=== PATIENT | male | born 1980 | race Caucasian/White ===

== ENCOUNTER 2020-07-14 17:17 | Emergency (ER) | payer OTHER, SELFPAY ==
--- NOTE | 2020-07-14 17:44 | ED_ITS ---
HPI - Psych General Chief Complaint: Psychiatric Symptoms Stated Complaint: si Time Seen by Provider: 07/14/20 17:43 Source: patient Mode of arrival: ambulatory Limitations: no limitations History of Present Illness HPI Narrative: patient has history of depression IV heroin use and schizophrenia came here for increased depression and suicidal ideation with plan to jump in front of the running bus. Says the drug use is also a problem which she been using for several years been admitted to the psych department 3 months ago for similar situation. Patient denied any event happened at home. Patient does have auditory hallucination and voices do tell him to do bad things to himself complaint: suicidal ideation and feels depressed Onset (ago): day(s) ( several) Duration: intermittent History of same: Yes Relieving factors: none Exacerbating factors: none Context: recent drug abuse Associated psychiatric symptoms: depression Treatments prior to arrival: none If self harm: admits thoughts of self harm and has plan Related Data Home Medications Medication Instructions Recorded Confirmed benztropine 1 mg PO DAILY 07/14/20 07/14/20 clonazepam 1 mg PO BID 07/14/20 07/14/20 prazosin 2 mg PO BEDTIME 07/14/20 07/14/20 risperidone 2 mg PO DAILY 07/14/20 07/14/20 sertraline 50 mg PO DAILY 07/14/20 07/14/20 Allergies Allergy/AdvReac Type Severity Reaction Status Date / Time No Known Allergies Allergy Verified 07/14/20 20:36 [No Known Allergies*] Review of Systems Review of Systems: Constitutional : No Fever, No Chills ENT/Mouth : No Ear Pain, No Nasal Congestion, No sore throat Eyes: No Eye Pain, No Swelling, No Redness Cardiovascular : No Chest Pain, No SOB Respiratory : No Cough, No Sputum, No Dyspnea Gastrointestinal : No Nausea, No Vomiting, No Diarrhea, No Hematochezia, No Melena Genitourinary : No Dysuria, No Urinary Frequency, No Hematuria Musculoskeletal : No Myalgias Skin : No Skin Lesions, No rash Neuro : No Weakness, No Numbness, No Paresthesias, No Dizziness, No Headache Psych : positive Depression, positive SI Heme/Lymph: No Lymphadenopathy Endocrine : No Polyuria, No Polydipsia PMFSH Past Medical History Medical History (Updated 07/15/20 @ 00:28 by Howard Alegre MD) Anemia Social History Social History Alcohol intake: current Alcohol intake frequency: a few times a week Smoking Status: Current every day smoker Use of substances other than those prescribed or required for medical reasons: Yes Substance Use Type: Heroin Substance Use Frequency: Chronic Longstanding Last Used Substance: Hours (ago) Any prior treatment program specific to substance use: Yes Advance Directives: No Advance Directives Information Provided: No Physical Exam Vital Signs: Vital Signs: Vital Signs Temp Pulse Resp BP Pulse Ox 07/14/20 22:57 98.9 F 70 16 139/89 97 07/14/20 22:49 70 139/89 07/14/20 22:21 98 F 64 20 136/89 98 07/14/20 17:50 97.6 F 68 20 108/74 97 Body Mass Index 27.4 Appearance: Alert. Oriented X3. No acute distress. Eyes: Pupils equal, round and reactive to light. ENT: Pharynx normal. Neck: Normal inspection. Neck supple. CVS: Normal heart rate and rhythm. Pulses normal. Respiratory: No respiratory distress. Breath sounds normal. Abdomen: Soft and nontender. Skin: Skin warm and dry. Normal skin color. Normal skin turgor. Extremities: No lower extremity edema. Good range of movement, IVDA Aldana ++ Neuro: Oriented X 3. No motor deficit. No sensory deficit. psych: patient feel depressed no hallucinations or delusions feels suicidal Course Course Course Narrative: patient has calm and stable at this time awaiting for crisis to evaluate the patient, pt signed out to Dr Velez [facility] - Psych Restraints Face to Face Assessment: Face to Face Assessment: Current Situation: After assessment of the patient, a review of the pertinent medical record and a discussion with nursing staff, I feel the patient requires a restrain interven tion. Reaction To: [] Medical Condition: [] Behavioral State: [] Continued Need: [] Lab Data Result diagrams: 07/14/20 17:55 07/14/20 17:55 Labs: Lab Results 07/14/20 07/14/20 07/14/20 Range/Units 17:55 17:55 17:55 WBC 7.0 (4.8-10.8) X10*3/uL RBC 4.74 (4.60-5.80) X10*6/uL Hgb 13.3 L (14.0-18.0) g/dl Hct 38.9 L (42-52) % MCV 82.1 (80-98) fL MCH 28.1 (27.0-33.0) pg MCHC 34.2 (31.0-36.0) g/dl RDW 12.8 (11.0-16.0) % Plt Count 238 (160-400) X10*3/uL MPV 8.7 L (9.4-12.4) fL Immature Gran % (Auto) 0.6 H (0.0-0.4) % Neut % (Auto) 49.3 (45-73) % Lymph % (Auto) 37.7 (20-40) % [place] % (Auto) 7.6 (2-11) % Eos % (Auto) 4.1 H (0-4) % Baso % (Auto) 0.7 (0-2) % Lymph # (Auto) 2.6 (1.2-4.9) X10*3/uL [place] # (Auto) 0.5 (0.1-1.2) X10*3/uL Eos # (Auto) 0.3 (0.0-0.4) X10*3/uL Baso # (Auto) 0.1 (0.0-0.2) X10*3/uL Abs Immat Gran (auto) 0.04 H (0.00-0.03) X10*3/uL Absolute Neuts (auto) 3.5 (2.0-8.3) X10*3/uL Absolute Nucleated RBC 0.000 (0.0-0.012) X10*3/uL Nucleated RBC % (auto) 0.0 (0.0-0.2) /100WBC Sodium 141 (135-145) mmol/L Potassium 4.2 (3.3-5.1) mmol/l Chloride 104 (96-108) mmol/L Carbon Dioxide 31 H (22-29) mmol/L Anion Gap 10 L (12-20) BUN 9 (9-16) mg/dL Creatinine 0.78 (0.5-1.4) mg/dL Estim Creat Clear Calc 124.3 Estimated GFR > 60 Random Glucose 88 (60-115) mg/dL Calcium 8.6 (8.4-10.2) mg/dL Total Bilirubin 0.8 (0.0-1.0) mg/dL AST 70 H (5-37) U/L ALT 116 H (0-40) U/L Alkaline Phosphatase 114 (39-117) U/L Total Protein 7.3 (6.5-8.0) g/dL Albumin 3.9 (3.5-5.0) g/dL Urine Opiates Screen (Not Detect) Ur Barbiturates Screen (Not Detect) Ur Phencyclidine Scrn (Not Detect) Ur Amphetamines Screen (Not Detect) U Benzodiazepines Scrn (Not Detect) Urine Cocaine Screen (Not Detect) U Marijuana (THC) Screen (Not Detect) Ethyl Alcohol < 10 mg/dL 07/14/20 Range/Units 21:24 WBC (4.8-10.8) X10*3/uL RBC (4.60-5.80) X10*6/uL Hgb (14.0-18.0) g/dl Hct (42-52) % MCV (80-98) fL MCH (27.0-33.0) pg MCHC (31.0-36.0) g/dl RDW (11.0-16.0) % Plt Count (160-400) X10*3/uL MPV (9.4-12.4) fL Immature Gran % (Auto) (0.0-0.4) % Neut % (Auto) (45-73) % Lymph % (Auto) (20-40) % [place] % (Auto) (2-11) % Eos % (Auto) (0-4) % Baso % (Auto) (0-2) % Lymph # (Auto) (1.2-4.9) X10*3/uL [place] # (Auto) (0.1-1.2) X10*3/uL Eos # (Auto) (0.0-0.4) X10*3/uL Baso # (Auto) (0.0-0.2) X10*3/uL Abs Immat Gran (auto) (0.00-0.03) X10*3/uL Absolute Neuts (auto) (2.0-8.3) X10*3/uL Absolute Nucleated RBC (0.0-0.012) X10*3/uL Nucleated RBC % (auto) (0.0-0.2) /100WBC Sodium (135-145) mmol/L Potassium (3.3-5.1) mmol/l Chloride (96-108) mmol/L Carbon Dioxide (22-29) mmol/L Anion Gap (12-20) BUN (9-16) mg/dL Creatinine (0.5-1.4) mg/dL Estim Creat Clear Calc Estimated GFR Random Glucose (60-115) mg/dL Calcium (8.4-10.2) mg/dL Total Bilirubin (0.0-1.0) mg/dL AST (5-37) U/L ALT (0-40) U/L Alkaline Phosphatase (39-117) U/L Total Protein (6.5-8.0) g/dL Albumin (3.5-5.0) g/dL Urine Opiates Screen POSITIVE H (Not Detect) Ur Barbiturates Screen Not Detected (Not Detect) Ur Phencyclidine Scrn Not Detected (Not Detect) Ur Amphetamines Screen Not Detected (Not Detect) U Benzodiazepines Scrn Not Detected (Not Detect) Urine Cocaine Screen POSITIVE H (Not Detect) U Marijuana (THC) Screen POSITIVE H (Not Detect) Ethyl Alcohol mg/dL Discharge Plan Discharge Clinical Impression: Suicidal ideation, Substance abuse Depression Qualifiers: Depression Type: major depressive disorder Major depression recurrence: recurrent Active/Remission status: currently active Major depression episode severity: moderate Qualified Code(s): F33.1 - Major depressive disorder, recurrent, moderate Prescriptions: No Action clonazepam 1 mg Tablet 1 mg PO BID RF: 0 risperidone 2 mg Tablet 2 mg PO DAILY RF: 0 benztropine 1 mg Tablet 1 mg PO DAILY RF: 0 sertraline 50 mg Tablet 50 mg PO DAILY RF: 0 prazosin 2 mg Capsule 2 mg PO BEDTIME RF: 0
[2020-07-14 17:50] VITALS: BP 108/74; PULSE 68; RESP 20; TEMP 36.4; O2SAT 97; BMI 27.4
[2020-07-14 18:03] LABS: MANUAL DIFF FLAG NO
[2020-07-14 18:20] LABS: Basophils Absolute Auto 0.1 X10*3/uL (0.0-0.2); Basophils Percent Auto 0.7 % (0-2); Eosinophils Absolute Auto 0.3 X10*3/uL (0.0-0.4); Eosinophils Percent Auto 4.1 % (0-4); Hematocrit 38.9 % (42-52); Hemoglobin 13.3 g/dl (14.0-18.0); Imm Gran Abs Auto 0.04 X10*3/uL (0.00-0.03); Imm Gran Pct Auto 0.6 % (0.0-0.4); Lymphocytes Absolute Auto 2.6 X10*3/uL (1.2-4.9); Lymphocytes Percent Auto 37.7 % (20-40); Mean Corpuscular HGB Conc 34.2 g/dl (31.0-36.0); Mean Corpuscular Hemoglobin 28.1 pg (27.0-33.0); Mean Corpuscular Volume 82.1 fL (80-98); Mean Platelet Volume 8.7 fL (9.4-12.4); Monocytes Absolute Auto 0.5 X10*3/uL (0.1-1.2); Monocytes Percent Auto 7.6 % (2-11); Neutrophils Absolute Auto 3.5 X10*3/uL (2.0-8.3); Neutrophils Percent Auto 49.3 % (45-73); Platelet Count 238 X10*3/uL (160-400); Red Blood Count 4.74 X10*6/uL (4.60-5.80); Red Cell Distribution Width 12.8 % (11.0-16.0)
[2020-07-14 18:27] LABS: Ethanol < 10 mg/dL
[2020-07-14 18:32] LABS: Alanine Aminotransferase 116 U/L (0-40); Albumin Level 3.9 g/dL (3.5-5.0); Alkaline Phosphatase 114 U/L (39-117); Anion Gap 10 (12-20); Aspartate Amino Transferase 70 U/L (5-37); Bilirubin Total 0.8 mg/dL (0.0-1.0); Blood Urea Nitrogen 9 mg/dL (9-16); Calcium 8.6 mg/dL (8.4-10.2); Carbon Dioxide 31 mmol/L (22-29); Chloride 104 mmol/L (96-108); Creatinine Clr Calc Pharmacy 124.3; Estimated Glomerular Filt Rate > 60; Glucose Random 88 mg/dL (60-115); Potassium 4.2 mmol/l (3.3-5.1); Sodium 141 mmol/L (135-145); Total Protein 7.3 g/dL (6.5-8.0)
[2020-07-14 22:12] LABS: Amphetamine Screen Urine Not Detected (Not Detect); Barbiturates, Urine Not Detected (Not Detect); Benzodiazepines Screen Urine Not Detected (Not Detect); Cannabinoid Screen Urine POSITIVE (Not Detect); Cocaine Screen Urine POSITIVE (Not Detect); Opiate Screen Urine POSITIVE (Not Detect); Phencyclidine Screen Urine Not Detected (Not Detect)
[2020-07-14 22:21] VITALS: BP 136/89; PULSE 64; RESP 20; TEMP 36.6; O2SAT 98
[2020-07-14] MEDS: clonazePAM 1 MG TABLET PO (22:47)
[2020-07-14 22:49] VITALS: BP 139/89; PULSE 70
[2020-07-14] MEDS: Prazosin HCL 1 MG CAPSULE 2 MG PO (22:49)
[2020-07-14 22:57] VITALS: BP 139/89; PULSE 70; RESP 16; TEMP 37.2; O2SAT 97
[2020-07-15 03:13] VITALS: BP 128/89; PULSE 72; RESP 17; TEMP 36.7; O2SAT 98
[2020-07-15] MEDS: Acetaminophen 325 MG TABLET 650 MG PO (04:00)
--- NOTE | 2020-07-15 04:07 | PC.NURSE ---
[facility] who came here to picket [employer] patient did not take the patient on technical ground after having communication with [facility] who booked the ride. Provider, Charge nurse made aware. Called [facility]/notified us that patient's ride will arranged in the morning. Patient back to bed, reported headache, Tylenol 650 mg administered as ordered. Will continue to monitor the patient.
--- NOTE | 2020-07-15 07:38 | PC.NURSE ---
medicated w methadone. message left w [facility] re discharge and dosing today. denies si,
== END 2020-07-15 07:50 ==
PROVIDERS: Emergency Provider Internal Medicine
DX: F33.1 Major depressive disorder, recurrent, moderate (principal); R45.851 Suicidal ideations; F20.9 Schizophrenia, unspecified; F11.10 Opioid abuse, uncomplicated; F17.200 Nicotine dependence, unspecified, uncomplicated; Z71.6 Tobacco abuse counseling; Z79.899 Other long term (current) drug therapy
CPT/HCPCS: 36415; 80053; 80307; 80320; 85025; 99285

== ENCOUNTER 2020-08-23 11:43 | Emergency (ER) | payer OTHER, SELFPAY ==
[2020-08-23 12:44] VITALS: BP 107/70; PULSE 63; RESP 18; TEMP 36.6; O2SAT 98; BMI 27.3
--- NOTE | 2020-08-23 14:10 | ED.PSYCH ---
HPI - Psych General Chief Complaint: Psychiatric Symptoms Stated Complaint: crisis Time Seen by Provider: 08/23/20 14:01 Source: patient Mode of arrival: ambulatory History of Present Illness HPI Narrative: 40-year-old male with a past medical history of anemia, schizophrenia, substance abuse, presenting to ED for increased depression with suicidal ideations with plan to cut himself. Admits he has been cutting his hands with a knife. Reports using heroin, cocaine, Fentanyl, and drinking 2 pints of alcohol daily, last used/drank last night. Denies fever, chills, cough, abdominal pain, CP/SOB. Denies HI complaint: suicidal ideation, feels depressed, substance abuse and alcohol abuse Related Data Home Medications Medication Instructions Recorded Confirmed benztropine 1 mg PO DAILY 07/14/20 07/14/20 clonazepam 1 mg PO BID 07/14/20 07/14/20 prazosin 2 mg PO BEDTIME 07/14/20 07/14/20 risperidone 2 mg PO DAILY 07/14/20 07/14/20 sertraline 50 mg PO DAILY 07/14/20 07/14/20 methadone 45 mg PO DAILY 07/15/20 07/15/20 Allergies Allergy/AdvReac Type Severity Reaction Status Date / Time No Known Allergies Allergy Verified 07/14/20 20:36 [No Known Allergies*] Review of Systems Review of Systems: Constitutional: No Weight loss, No Fever, No Chills Cardiovascular: No Chest Pain, No SOB Respiratory: No Cough, No Sputum, No Dyspnea Gastrointestinal: No Nausea, No Vomiting, No Diarrhea,No Abdominal pain Musculoskeletal: No joint pain, No Myalgias, No Joint Swelling Skin: No Skin Lesions, No rash Psych: + Depression, + SI, No HI/AH/VH Yes all other systems are reviewed and are negative [facility] Past Medical History Attestation statement: The following information was validated with the patient. Medical History (Updated 08/23/20 @ 20:18 by SHANON Santacruz) Anemia Social History Social History Alcohol intake: current Alcohol intake frequency: a few times a week Alcohol type: beer Smoking Status: Current every day smoker Smoked in Last 30 Days: Yes Use of substances other than those prescribed or required for medical reasons: Yes Substance Use Type: Opiates Advance Directives: No Advance Directives Information Provided: No Physical Exam Vital Signs: Vital Signs: Last Vital Signs Temp 98 F 08/23/20 12:44 Pulse 63 08/23/20 12:44 Resp 16 08/23/20 17:08 BP 107/70 08/23/20 12:44 Pulse Ox 97 08/23/20 17:08 Body Mass Index 27.3 Const: General: cooperative Orientation/consciousness: patient oriented x3 Limitations: no limitations HENMT: Head: Yes normal to inspection Ears: hearing grossly normal bilaterally General nose exam: Normal external nose present Face and sinus: Yes normal facial exam Eyes: General: appearance normal, both eyes and all related structures EOM: EOMs intact bilaterally Neck: Neck: Yes normal visual inspection Resp: Effort & Inspection: normal respiratory effort Auscultation: clear to auscultation bilaterally, no rales, no rhonchi and no wheezes Cardio: Rate: regular rate Heart sounds: S1 normal heart sound present and S2 normal heart sound present GI: Inspection: Yes normal to inspection Palpation (GI): Soft to palpation, nontender, no guarding and not rigid Skin: Other: Superficial cuts noted to bilateral, no active infection Neuro: General: patient oriented x3 Gait exam (Neuro): Normal gait present Extrem: General: Yes normal to inspection Psych: Thought content: Suicidality present and Depressive thoughts present Course Course Course Narrative: AST/ALT chronically elevated, labs otherwise unremarkable Tox screen positive for opiates, cocaine, and THC Patient is medically cleared for [facility] eval patient is now EATS bed search -2100--ED care transfer to [facility] bed search MDM - Psych MDM Narrative Medical decision making narrative: 40-year-old male with a past medical history of anemia, schizophrenia, substance abuse, presenting to ED for increased depression with suicidal ideations with plan to cut himself. On exam VS, NAD/well-appearing, superficial constant to bilateral hands. Patient has been admitted for similar circumstances in the past Plan: Labs, [facility], [facility] Lab Data Result diagrams: 08/23/20 15:16 08/23/20 15:16 Labs: Lab Results 08/23/20 08/23/20 08/23/20 Range/Units 15:16 15:16 15:16 WBC 7.9 (4.8-10.8) X10*3/uL RBC 4.75 (4.60-5.80) X10*6/uL Hgb 13.8 L (14.0-18.0) g/dl Hct 39.4 L (42-52) % MCV 82.9 (80-98) fL MCH 29.1 (27.0-33.0) pg MCHC 35.0 (31.0-36.0) g/dl RDW 13.6 (11.0-16.0) % Plt Count 246 (160-400) X10*3/uL MPV 8.8 L (9.4-12.4) fL Immature Gran % (Auto) 0.4 (0.0-0.4) % Neut % (Auto) 56.3 (45-73) % Lymph % (Auto) 33.5 (20-40) % [place] % (Auto) 7.3 (2-11) % Eos % (Auto) 2.0 (0-4) % Baso % (Auto) 0.5 (0-2) % Lymph # (Auto) 2.7 (1.2-4.9) X10*3/uL [place] # (Auto) 0.6 (0.1-1.2) X10*3/uL Eos # (Auto) 0.2 (0.0-0.4) X10*3/uL Baso # (Auto) 0.0 (0.0-0.2) X10*3/uL Abs Immat Gran (auto) 0.03 (0.00-0.03) X10*3/uL Absolute Neuts (auto) 4.5 (2.0-8.3) X10*3/uL Absolute Nucleated RBC 0.000 (0.0-0.012) X10*3/uL Nucleated RBC % (auto) 0.0 (0.0-0.2) /100WBC Sodium 138 (135-145) mmol/L Potassium 4.4 (3.3-5.1) mmol/l Chloride 103 (96-108) mmol/L Carbon Dioxide 26 (22-29) mmol/L Anion Gap 13 (12-20) BUN 13 (9-16) mg/dL Creatinine 0.80 (0.5-1.4) mg/dL Estim Creat Clear Calc 121.1 Estimated GFR > 60 Random Glucose 79 (60-115) mg/dL Calcium 8.5 (8.4-10.2) mg/dL Total Bilirubin 0.9 (0.0-1.0) mg/dL Direct Bilirubin 0.4 (0.0-0.5) mg/dL AST 40 H D (5-37) U/L ALT 59 H (0-40) U/L Alkaline Phosphatase 139 H D (39-117) U/L Total Protein 7.4 (6.5-8.0) g/dL Albumin 4.0 (3.5-5.0) g/dL Urine Opiates Screen (Not Detect) Ur Barbiturates Screen (Not Detect) Ur Phencyclidine Scrn (Not Detect) Ur Amphetamines Screen (Not Detect) U Benzodiazepines Scrn (Not Detect) Urine Cocaine Screen (Not Detect) U Marijuana (THC) Screen (Not Detect) Ethyl Alcohol < 10 mg/dL 08/23/20 Range/Units 15:16 WBC (4.8-10.8) X10*3/uL RBC (4.60-5.80) X10*6/uL Hgb (14.0-18.0) g/dl Hct (42-52) % MCV (80-98) fL MCH (27.0-33.0) pg MCHC (31.0-36.0) g/dl RDW (11.0-16.0) % Plt Count (160-400) X10*3/uL MPV (9.4-12.4) fL Immature Gran % (Auto) (0.0-0.4) % Neut % (Auto) (45-73) % Lymph % (Auto) (20-40) % [place] % (Auto) (2-11) % Eos % (Auto) (0-4) % Baso % (Auto) (0-2) % Lymph # (Auto) (1.2-4.9) X10*3/uL [place] # (Auto) (0.1-1.2) X10*3/uL Eos # (Auto) (0.0-0.4) X10*3/uL Baso # (Auto) (0.0-0.2) X10*3/uL Abs Immat Gran (auto) (0.00-0.03) X10*3/uL Absolute Neuts (auto) (2.0-8.3) X10*3/uL Absolute Nucleated RBC (0.0-0.012) X10*3/uL Nucleated RBC % (auto) (0.0-0.2) /100WBC Sodium (135-145) mmol/L Potassium (3.3-5.1) mmol/l Chloride (96-108) mmol/L Carbon Dioxide (22-29) mmol/L Anion Gap (12-20) BUN (9-16) mg/dL Creatinine (0.5-1.4) mg/dL Estim Creat Clear Calc Estimated GFR Random Glucose (60-115) mg/dL Calcium (8.4-10.2) mg/dL Total Bilirubin (0.0-1.0) mg/dL Direct Bilirubin (0.0-0.5) mg/dL AST (5-37) U/L ALT (0-40) U/L Alkaline Phosphatase (39-117) U/L Total Protein (6.5-8.0) g/dL Albumin (3.5-5.0) g/dL Urine Opiates Screen POSITIVE H (Not Detect) Ur Barbiturates Screen Not Detected (Not Detect) Ur Phencyclidine Scrn Not Detected (Not Detect) Ur Amphetamines Screen Not Detected (Not Detect) U Benzodiazepines Scrn Not Detected (Not Detect) Urine Cocaine Screen POSITIVE H (Not Detect) U Marijuana (THC) Screen POSITIVE H (Not Detect) Ethyl Alcohol mg/dL Discharge Plan Discharge Clinical Impression: Heroin abuse Depression Qualifiers: Depression Type: unspecified Qualified Code(s): F32.9 - Major depressive disorder, single episode, unspecified Prescriptions: No Action clonazepam 1 mg Tablet 1 mg PO BID RF: 0 risperidone 2 mg Tablet 2 mg PO DAILY RF: 0 benztropine 1 mg Tablet 1 mg PO DAILY RF: 0 sertraline 50 mg Tablet 50 mg PO DAILY RF: 0 prazosin 2 mg Capsule 2 mg PO BEDTIME RF: 0 methadone 5 mg Tablet 45 mg PO DAILY RF: 0
--- NOTE | 2020-08-23 15:06 | PC.NURSE ---
[facility] notified of crisis consult. Will fax ed summary after pt voids and urine tox. is resulted.
[2020-08-23 15:32] LABS: MANUAL DIFF FLAG NO
[2020-08-23 15:33] LABS: Basophils Percent Auto 0.5 % (0-2); Eosinophils Absolute Auto 0.2 X10*3/uL (0.0-0.4); Hematocrit 39.4 % (42-52); Hemoglobin 13.8 g/dl (14.0-18.0); Imm Gran Abs Auto 0.03 X10*3/uL (0.00-0.03); Imm Gran Pct Auto 0.4 % (0.0-0.4); Lymphocytes Absolute Auto 2.7 X10*3/uL (1.2-4.9); Lymphocytes Percent Auto 33.5 % (20-40); Mean Corpuscular Hemoglobin 29.1 pg (27.0-33.0); Mean Corpuscular Volume 82.9 fL (80-98); Mean Platelet Volume 8.8 fL (9.4-12.4); Monocytes Absolute Auto 0.6 X10*3/uL (0.1-1.2); Monocytes Percent Auto 7.3 % (2-11); Neutrophils Absolute Auto 4.5 X10*3/uL (2.0-8.3); Neutrophils Percent Auto 56.3 % (45-73); Platelet Count 246 X10*3/uL (160-400); Red Blood Count 4.75 X10*6/uL (4.60-5.80); Red Cell Distribution Width 13.6 % (11.0-16.0); White Blood Count 7.9 X10*3/uL (4.8-10.8)
[2020-08-23 15:58] LABS: Ethanol < 10 mg/dL
[2020-08-23 16:00] LABS: Amphetamine Screen Urine Not Detected (Not Detect); Barbiturates, Urine Not Detected (Not Detect); Benzodiazepines Screen Urine Not Detected (Not Detect); Cannabinoid Screen Urine POSITIVE (Not Detect); Cocaine Screen Urine POSITIVE (Not Detect); Opiate Screen Urine POSITIVE (Not Detect); Phencyclidine Screen Urine Not Detected (Not Detect)
[2020-08-23 16:04] LABS: Alanine Aminotransferase 59 U/L (0-40); Alkaline Phosphatase 139 U/L (39-117); Anion Gap 13 (12-20); Aspartate Amino Transferase 40 U/L (5-37); Bilirubin Direct 0.4 mg/dL (0.0-0.5); Bilirubin Total 0.9 mg/dL (0.0-1.0); Blood Urea Nitrogen 13 mg/dL (9-16); Calcium 8.5 mg/dL (8.4-10.2); Carbon Dioxide 26 mmol/L (22-29); Chloride 103 mmol/L (96-108); Creatinine Clr Calc Pharmacy 121.1; Estimated Glomerular Filt Rate > 60; Glucose Random 79 mg/dL (60-115); Potassium 4.4 mmol/l (3.3-5.1); Sodium 138 mmol/L (135-145); Total Protein 7.4 g/dL (6.5-8.0)
[2020-08-23 16:21] VITALS: RESP 20; O2SAT 97
--- NOTE | 2020-08-23 16:22 | PC.NURSE ---
ED summary faxed to [facility].
[2020-08-23 17:08] VITALS: RESP 16; O2SAT 97
[2020-08-23 22:00] VITALS: BP 110/71; PULSE 66; RESP 16; TEMP 37.2; O2SAT 97
--- NOTE | 2020-08-24 00:11 | PC.NURSE ---
FAXED TO [facility] FOR DOSE VERIFICATION FOR AM.
[2020-08-24 00:16] VITALS: BP 119/79; PULSE 52; RESP 16; TEMP 37.6; O2SAT 99
[2020-08-24 02:28] VITALS: PULSE 70
[2020-08-24] MEDS: cloNIDine HCL 0.1 MG TABLET PO (02:28)
[2020-08-24] MEDS: Ibuprofen 400 MG TABLET PO (02:29)
[2020-08-24] MEDS: Acetaminophen 325 MG TABLET 975 MG PO (02:29)
[2020-08-24] MEDS: risperiDONE 2 MG TABLET PO (09:42)
[2020-08-24] MEDS: Sertraline HCL 50 MG TABLET PO (09:42)
[2020-08-24] MEDS: clonazePAM 1 MG TABLET PO ×2 (09:42→23:38)
[2020-08-24] MEDS: Benztropine Mesylate 1 MG TABLET PO (09:42)
--- NOTE | 2020-08-24 11:33 | PC.NURSE ---
pharmacy called for methadone
[2020-08-24 11:41] VITALS: BP 107/73; PULSE 68; RESP 18; TEMP 37; O2SAT 96
--- NOTE | 2020-08-24 11:42 | PC.NURSE ---
patient a&ox3, pt awaiting methadone from pharmacy, vitals obtained/stable, pt awaiting placement. will continue to monitor.
--- NOTE | 2020-08-24 12:16 | PC.NURSE ---
pharmacy brought up medication for patient, pt medicated per order, will continue to monitor.
--- NOTE | 2020-08-24 13:31 | MHC.RECOVSUP ---
Recovery Support note: Patient is a 40 year old [place] speaking male who presented to [facility] ED due to SI. Patient was evaluated by N and he is currently awaiting an EATS bed. Patient reports he is hanging in there and doing ok while he awaits a bed. Offered patient information on recovery supports and patient declined, stating that he was familiar with them. Offered patient opportunity to meet with a recovery specialist and patient declined, stating that he is aware of [facility] and he has met with recovery coaches before while in the emergency room. This report writer available as needed if patient is interested in discussing his substance use further.
[2020-08-24 14:00] VITALS: RESP 17
[2020-08-24 16:00] VITALS: BP 108/72; PULSE 62; RESP 18; TEMP 36.7; O2SAT 99
[2020-08-24 18:00] VITALS: BP 105/62; PULSE 58; RESP 18; TEMP 36.5; O2SAT 100
--- NOTE | 2020-08-24 21:02 | PC.NURSE ---
pt resting in recliner in NAD and requesting food. pt given Maggie douglas and crackers to eat. Will continue to monitor pt. Pt denies any complaints at this time.
--- NOTE | 2020-08-24 23:43 | PC.NURSE ---
PT AWAKE AND RESTING IN RECLINER CHAIR. PT MEDICATED PER EMAR FOR ANXIETY. WILL CONTINUE TO MONITOR PT.
[2020-08-25 00:09] VITALS: BP 134/84; PULSE 91
[2020-08-25] MEDS: Prazosin HCL 1 MG CAPSULE 2 MG PO (00:09)
--- NOTE | 2020-08-25 02:00 | PC.NURSE ---
PT RESTING IN STRETCHER AND DENIES ANY COMPLAINTS AT THIS TIME. REQUESTING FOOD. PT GIVEN SANDWICH AND SODA.
--- NOTE | 2020-08-25 04:00 | PC.NURSE ---
PT AWAkE, DENIES ANY COMPLAINTS, PT REMAINS CALM AND COOPERATIVE. PT REQUESTING FOOD. WILL CONTINUE TO MONITOR PT.
--- NOTE | 2020-08-25 06:05 | PC.NURSE ---
PT AWAKE, RESPIRATIONS EASY, N/L. SKIN W/D, PT DENIES ANY COMPLAINTS. PT REQUESTING BREAKFAST. WILL CONTINUE TO MONITOR PT.
--- NOTE | 2020-08-25 07:00 | PC.NURSE ---
REPORT GIVEN TO ON-COMING SHIFT.
--- NOTE | 2020-08-25 07:35 | PC.NURSE ---
Report received. PT is sleeping in a recliner in 18H. Breathing is even and unlabored. EATS bed search in progress.
--- NOTE | 2020-08-25 09:10 | PC.NURSE ---
TONA called to speak with the PT for a MSU over the phone.
[2020-08-25] MEDS: clonazePAM 1 MG TABLET PO (09:53)
[2020-08-25] MEDS: Benztropine Mesylate 1 MG TABLET PO (09:53)
[2020-08-25] MEDS: Sertraline HCL 50 MG TABLET PO (09:53)
[2020-08-25] MEDS: risperiDONE 2 MG TABLET PO (09:53)
--- NOTE | 2020-08-25 10:07 | PC.NURSE ---
Spoke with DORAN about PT changing his mind in being an EATS bed search. PT stated that he doesn't think he needs to go anymore and he is going to stay with his aunt when he leaves the hospital. DORAN to consult with provider to determine PT disposition.
== END 2020-08-25 11:02 | disposition home or self-care (01) ==
PROVIDERS: Physician Assistant; Emergency Provider Internal Medicine; PCP Psychiatry & Neurology Psychiatry
DX: F32.9 Major depressive disorder, single episode, unspecified (principal); R45.851 Suicidal ideations; F11.10 Opioid abuse, uncomplicated; F14.10 Cocaine abuse, uncomplicated; Z79.899 Other long term (current) drug therapy
CPT/HCPCS: 36415; 80048; 80076; 80307; 80320; 85025; 99285

== ENCOUNTER 2020-09-14 08:35 | Emergency (ER) | payer OTHER, SELFPAY ==
[2020-09-14 08:47] VITALS: BP 121/85; PULSE 75; RESP 18; TEMP 36.7; O2SAT 96; BMI 28.0
[2020-09-14 08:52] VITALS: BP 121/85; PULSE 75; RESP 18; TEMP 36.7; O2SAT 96
--- NOTE | 2020-09-14 08:56 | ED.PSYCH ---
HPI - Psych General Chief Complaint: ETOH/Substance Use Stated Complaint: DETOX Time Seen by Provider: 09/14/20 08:55 Source: patient Mode of arrival: ambulatory Limitations: no limitations History of Present Illness HPI Narrative: 40 y/o male with history of alcohol abuse and opiate abuse presenting to the ER seeking detox. He reports he is also on methadone, last took it yesterday but did not go to the clinic today because he knows he needs help. He admits to using 3 bundles of IV heroin daily and drinking 1 pint and several beers per day. He denies SI and HI. He is starting to feel slightly anxious and is asking for his methadone. MD complaint: substance abuse and alcohol abuse Onset (ago): month(s) Duration: constant History of same: Yes Relieving factors: none Exacerbating factors: alcohol and drug use Context: recent alcohol abuse and recent drug abuse Associated psychiatric symptoms: none Associated symptoms: denies other symptoms Treatments prior to arrival: none Related Data Home Medications Medication Instructions Recorded Confirmed benztropine 1 mg PO DAILY 07/14/20 08/23/20 clonazepam 1 mg PO BID 07/14/20 08/23/20 prazosin 2 mg PO BEDTIME 07/14/20 08/23/20 risperidone 2 mg PO DAILY 07/14/20 08/23/20 sertraline 50 mg PO DAILY 07/14/20 08/23/20 methadone 45 mg PO DAILY 07/15/20 07/15/20 Allergies Allergy/AdvReac Type Severity Reaction Status Date / Time No Known Allergies Allergy Verified 07/14/20 20:36 [No Known Allergies*] Review of Systems Review of Systems: Constitutional: No Fever, No Chills Cardiovascular: No Chest Pain, No SOB, No Orthopnea, No Edema Respiratory: No Cough, No Sputum, No Wheezing, No dyspnea Gastrointestinal: No Nausea, No Vomiting, No Diarrhea, No abdominal Pain Genitourinary: No Dysuria, No Urinary Frequency, No Hematuria Musculoskeletal: No joint pain, No Myalgias Skin: No Skin Lesions, No rash Neuro: No Weakness, No Numbness, No Dizziness, No Headache Psych: No Anxiety/Panic, No Depression, No SI/ HI, No AH/VH PMFSH Past Medical History Medical History (Updated 09/14/20 @ 09:14 by SHANON Almendarez) Anemia Social History Social History Alcohol intake: current Alcohol intake frequency: 3 or more drinks per day Alcohol type: beer Smoking Status: Current every day smoker Smoked in Last 30 Days: Yes Use of substances other than those prescribed or required for medical reasons: Yes Substance Use Type: Heroin Substance Use Frequency: Daily Last Used Substance: Days (ago) Any prior treatment program specific to substance use: Yes Advance Directives: No Advance Directives Information Provided: No Physical Exam Vital Signs: Vital Signs: Last Vital Signs Temp 98.1 F 09/14/20 08:52 Pulse 75 09/14/20 08:52 Resp 18 09/14/20 08:52 BP 121/85 09/14/20 08:52 Pulse Ox 96 09/14/20 08:52 Body Mass Index 28.0 Appearance: Alert. Oriented X3. No acute distress. Eyes: Pupils equal, round and reactive to light. ENT: Pharynx normal. Neck: Normal inspection. Neck supple. CVS: Normal heart rate and rhythm. Pulses normal. Respiratory: No respiratory distress. Breath sounds normal. Abdomen: Soft and nontender. +BS x4 Skin: Skin warm and dry. Normal skin color. Normal skin turgor. No rashes. Extremities: No lower extremity edema. Neuro: Oriented X 3. Grossly normal. Course Course Course Narrative: 40 y/o male presenting for detox - heavy IVDA and ETOH. No objective signs of withdrawal at this time. He has been accepted to detox facility. He has been given his daily methadone dose 45 mg after confirming with his dispensary. MDM - Psych Restraints Face to Face Assessment: Face to Face Assessment: Current Situation: After assessment of the patient, a review of the pertinent medical record and a discussion with nursing staff, I feel the patient requires a restrain intervention. Reaction To: [] Medical Condition: [] Behavioral State: [] Continued Need: [] Lab Data Labs: Lab Results 09/14/20 Range/Units 09:10 Urine Opiates Screen POSITIVE H (Not Detect) Ur Barbiturates Screen Not Detected (Not Detect) Ur Phencyclidine Scrn Not Detected (Not Detect) Ur Amphetamines Screen Not Detected (Not Detect) U Benzodiazepines Scrn Not Detected (Not Detect) Urine Cocaine Screen POSITIVE H (Not Detect) U Marijuana (THC) Screen POSITIVE H (Not Detect) Critical Care Time Critical Care Time Critical Care Time: No Discharge Plan Discharge Clinical Impression: Alcohol abuse, Heroin abuse Patient Disposition: Xfer to Respite Facility Instructions: Alcohol Use Disorder (ED), Narcotic Use Disorder (ED) Additional Instructions: Present to detox facility directly upon discharge. Do not use IV drugs or drink alcohol. It is harmful to your health and can kill you. Prescriptions: No Action clonazepam 1 mg Tablet 1 mg PO BID RF: 0 risperidone 2 mg Tablet 2 mg PO DAILY RF: 0 benztropine 1 mg Tablet 1 mg PO DAILY RF: 0 sertraline 50 mg Tablet 50 mg PO DAILY RF: 0 prazosin 2 mg Capsule 2 mg PO BEDTIME RF: 0 methadone 5 mg Tablet 45 mg PO DAILY RF: 0
--- NOTE | 2020-09-14 09:21 | PC.NURSE ---
[facility] contacted for dose verification, message left.
[2020-09-14 10:11] LABS: Amphetamine Screen Urine Not Detected (Not Detect); Barbiturates, Urine Not Detected (Not Detect); Benzodiazepines Screen Urine Not Detected (Not Detect); Cannabinoid Screen Urine POSITIVE (Not Detect); Cocaine Screen Urine POSITIVE (Not Detect); Opiate Screen Urine POSITIVE (Not Detect); Phencyclidine Screen Urine Not Detected (Not Detect)
--- NOTE | 2020-09-14 10:28 | MHC.RECOVSUP ---
Recovery Support note: Patient is a 40 year old Mohawk speaking male who presented to [facility] ED seeking detox. Patient reports heroin and alcohol use. Patient was recently at [facility] and discharged on 09/08/20. Patient reports he is interested in going back to [place] or to [facility]. Patient reports [facility] is too close to home and he fears he will leave if he goes there. Patient reports he is currently on Methadone and that the Methadone has helped him significantly decrease his use. Patient information has been faxed to [facility] who reports that they do not have a male bed but that they will be in touch if one opens up. Patient information has also been faxed to [facility] and this bond writer awaits a return call from this facility.
[2020-09-14] MEDS: LORazepam 1 MG TABLET PO (10:29)
--- NOTE | 2020-09-14 12:02 | PC.NURSE ---
Methadone does confirmed, pt last dosed 09/12/20 with 45mg, and was given a take home bottle for 09/13/20. Provider notified, verification faxed to pharmacy
--- NOTE | 2020-09-14 13:21 | MHC.RECOVSUP ---
? Reason for consult:Continuity of care o Current location: 03 o Identified substance use concern: Heroin - Withdrawal - Seeking ATS (detox) - Support ? Intervention: o ATS bed search started/completed/in process o MAT started or to be started o Community resources provided o Harm reduction discussion ? Plan:Sending patient to detox ? Additional information:Had discussion with patient about use with methadone and those dangers,mat, and HFH. Sent patient to [facility] in a LYFT at 1:50pm
--- NOTE | 2020-09-14 13:30 | PC.NURSE ---
Pt accepted to [facility], to arrive via lyft.
== END 2020-09-14 13:37 ==
PROVIDERS: Physician Assistant; Emergency Provider Emergency Medicine; PCP Psychiatry & Neurology Psychiatry
DX: F10.10 Alcohol abuse, uncomplicated (principal); F11.20 Opioid dependence, uncomplicated; F14.10 Cocaine abuse, uncomplicated; F17.200 Nicotine dependence, unspecified, uncomplicated
CPT/HCPCS: 80307; 99285

== ENCOUNTER 2020-11-06 09:26 | Emergency (ER) | payer OTHER, SELFPAY ==
[2020-11-06 09:29] VITALS: BP 116/69; PULSE 101; RESP 18; TEMP 36.4; O2SAT 98; BMI 26.6
--- NOTE | 2020-11-06 10:20 | ECG_ITS ---
Test Reason : CHECK CARDAIC STATUS Blood Pressure : / mmHG Vent. Rate : 083 BPM Atrial Rate : 083 BPM P-R Int : 148 ms QRS Dur : 120 ms QT Int : 416 ms P-R-T Axes : 048 079 057 degrees QTc Int : 488 ms Normal sinus rhythm Possible Inferior infarct (cited on or before 18-OCT-2018) Cannot rule out Anterior infarct , age undetermined Abnormal ECG When compared with ECG of 18-OCT-2018 03:28, No significant change was found Referred By: Emily Ortega Electronically Signed By:ALEXANDER GO MD
[2020-11-06 10:42] LABS: MANUAL DIFF FLAG NO
[2020-11-06 10:51] LABS: Basophils Percent Auto 0.6 % (0-2); Eosinophils Absolute Auto 0.1 X10*3/uL (0.0-0.4); Eosinophils Percent Auto 1.7 % (0-4); Hematocrit 36.9 % (42-52); Hemoglobin 12.7 g/dl (14.0-18.0); Imm Gran Abs Auto 0.03 X10*3/uL (0.00-0.03); Imm Gran Pct Auto 0.4 % (0.0-0.4); Lymphocytes Absolute Auto 1.8 X10*3/uL (1.2-4.9); Lymphocytes Percent Auto 26.6 % (20-40); Mean Corpuscular HGB Conc 34.4 g/dl (31.0-36.0); Mean Corpuscular Hemoglobin 28.8 pg (27.0-33.0); Mean Corpuscular Volume 83.7 fL (80-98); Mean Platelet Volume 8.5 fL (9.4-12.4); Monocytes Absolute Auto 0.5 X10*3/uL (0.1-1.2); Monocytes Percent Auto 7.7 % (2-11); Neutrophils Absolute Auto 4.3 X10*3/uL (2.0-8.3); Platelet Count 230 X10*3/uL (160-400); Red Blood Count 4.41 X10*6/uL (4.60-5.80); Red Cell Distribution Width 12.6 % (11.0-16.0); White Blood Count 6.9 X10*3/uL (4.8-10.8)
[2020-11-06 11:14] LABS: Ethanol < 10 mg/dL
[2020-11-06 11:18] LABS: Alanine Aminotransferase 56 U/L (0-40); Albumin Level 3.8 g/dL (3.5-5.0); Alkaline Phosphatase 105 U/L (39-117); Anion Gap 11 (12-20); Aspartate Amino Transferase 42 U/L (5-37); Bilirubin Direct 0.3 mg/dL (0.0-0.5); Bilirubin Total 0.6 mg/dL (0.0-1.0); Blood Urea Nitrogen 8 mg/dL (9-16); Calcium 8.8 mg/dL (8.4-10.2); Carbon Dioxide 31 mmol/L (22-29); Chloride 102 mmol/L (96-108); Creatinine Clr Calc Pharmacy 120.4; Estimated Glomerular Filt Rate > 60; Glucose Random 135 mg/dL (60-115); Magnesium 1.9 mg/dL (1.6-2.6); Potassium 3.5 mmol/L (3.3-5.1); Sodium 140 mmol/L (135-145); Total Protein 6.9 g/dL (6.5-8.0)
[2020-11-06] MEDS: LORazepam 1 MG TABLET PO (11:18)
[2020-11-06 11:21] LABS: Lipase 17 U/L (8-78)
[2020-11-06 11:38] LABS: Influenza A PCR NEGATIVE (Negative); Influenza B PCR NEGATIVE (Negative); Resp Syncy Virus RNA Qual PCR NEGATIVE (Negative); SARS COV2 PCR INHOUSE NEGATIVE (Negative)
--- NOTE | 2020-11-06 11:47 | ED_ITS ---
HPI - Psych General Chief Complaint: Psychiatric Symptoms Stated Complaint: crisis- si Time Seen by Provider: 11/06/20 09:42 Source: patient Mode of arrival: ambulatory Limitations: no limitations History of Present Illness HPI Narrative: 40-year-old male with a past medical history of anemia, schizophrenia, substance abuse with heroin and cocaine through IV presenting to the ED with complaints of increased anxiety and depression making him having thoughts of hurting himself over the past few days worse today. Reports that he has been using 40 bags of heroin IV and 2 g of cocaine IV as well although is currently on methadone 25 mg daily. Reports that he missed his dose today. Requesting for us to give us his dose of methadone while he is here in the emergency department. Denies any auditory visual hallucination, self-injury or homicidal ideations. Denies any additional complaints or concerns at this time. MD complaint: suicidal ideation, feels depressed, anxiety and substance abuse Onset (ago): day(s) Duration: constant History of same: Yes Relieving factors: none Exacerbating factors: drug use Context: recent drug abuse Associated psychiatric symptoms: depression and suicidal ideation Associated symptoms: denies other symptoms Treatments prior to arrival: none Related Data Home Medications Medication Instructions Recorded Confirmed benztropine 1 mg PO DAILY 07/14/20 08/23/20 clonazepam 1 mg PO BID 07/14/20 08/23/20 prazosin 2 mg PO BEDTIME 07/14/20 08/23/20 risperidone 2 mg PO DAILY 07/14/20 08/23/20 sertraline 50 mg PO DAILY 07/14/20 08/23/20 methadone 45 mg PO DAILY 07/15/20 07/15/20 Allergies Allergy/AdvReac Type Severity Reaction Status Date / Time No Known Allergies Allergy Verified 07/14/20 20:36 [No Known Allergies*] Review of Systems Review of Systems: Constitutional : No Fever, No Chills ENT/Mouth : No Ear Pain, No Nasal Congestion, No sore throat Eyes: No Eye Pain, No Swelling, No Redness Cardiovascular : No Chest Pain, No SOB Respiratory : No Cough, No Sputum, No Dyspnea Gastrointestinal : No ingestions, No Nausea, No Vomiting, No Diarrhea, No Hematochezia, No Melena Genitourinary : No Dysuria, No Urinary Frequency, No Hematuria Musculoskeletal : No Myalgias Skin : No Skin Lesions, + rash to upper lip Neuro : No Weakness, No Numbness, No Paresthesias, No Dizziness, No Headache Psych : + Anxiety, + Depression, + SI, + No thoughts of self injury, No HI, No AVH, Heme/Lymph: No Lymphadenopathy Endocrine : No Polyuria, No Polydipsia Yes all other systems are reviewed and are negative [facility] Past Medical History Attestation statement: The following information was validated with the patient. Medical History Anemia Social History Social History Alcohol intake: current Alcohol intake frequency: 3 or more drinks per day Alcohol type: beer Smoking Status: Current every day smoker Substance Use Type: Heroin Advance Directives: Yes Advance Directives Information Provided: Yes Advance Directives on File: No Physical Exam Vital Signs: Vital Signs: Last Vital Signs Temp 97.6 F 11/06/20 09:29 Pulse 80 11/06/20 12:37 Resp 16 11/06/20 12:37 BP 111/59 L 11/06/20 12:37 Pulse Ox 95 11/06/20 12:37 Body Mass Index 26.6 vital signs have been reviewed as normal and appeared to be correct. Blood pressure normal. Heart rate tachycardic. Respiration rate normal. Temperature normal. Oxygen saturation normal. Appearance: Alert. Oriented X3. No acute distress. Head: Normal external exam. Normocephalic. Atraumatic. No Peralta signs noted. No raccoon eyes noted Eyes: PERRLA. EOMI. Conjunctiva and sclera normal. Eyelids normal. ENT: EAC normal. TM's Normal. Pharynx normal. Uvula midline. Moist mucous membranes. To upper lip patient is noted to have yellow crusting on a erythematous base with bilious lesions consistent with possible impetigo versus herpes simplex virus. No trismus noted. No drooling noted. No muffled voice noted. Neck: Normal inspection. Neck supple. FROM. No adenopathy. Thyroid Normal. No meningeal signs. No neck mass noted. CVS: Normal heart rate and rhythm. Heart sound normal. No murmurs noted. Pulses normal throughout. Respiratory: No respiratory distress. Painless inspiration. Breath sounds normal. No wheezes/rales/rhonchi noted. Chest nontender. No accessory muscle usage noted or decreased air movement noted. Abdomen: Soft and nontender. Bowel sounds normal in all 4 quadrants. No distention noted. No organomegaly noted. No visible injury noted. Back: No CVA tenderness. Full range of motion noted. Skin: Skin warm and dry. Normal skin color. Normal skin turgor. No additional rashes other than what is on the patient's upper lip/lesions/lacerations noted. Extremities: To bilateral forearms patient has track chowdary no signs of infection or foreign bodies/streaking or induration noted. No lower extremity edema. No calf tenderness noted. Extremities exhibit normal range of motion. Extremities nontender. Neuro: Oriented X 3. No motor deficit. No sensory deficit. Reflexes normal. Psych: Appearance grossly normal, well-kept, mental status normal, speech and movement normal, speech clear, affect normal. Is cooperative. Normal thought process. Normal thought content. Normal good insight. Judgment good. Course Course Course Narrative: 10:20am - 40-year-old male with a past medical history of anemia, schizophrenia, substance abuse with heroin and cocaine through IV currently on Methadone 25 mg daily presenting to the ED with complaints of increased anxiety, depression and vague SI thoughts. - Plan: Labs, EKG, Drug urine screen, COVID/RSV/flu swab, herpes swab of the upper lip, then provide 1 mg of Ativan, 25 mg of the patient's methadone which was verified by the nurse, and Mupirocin topical ointment to the upper lip then once medically cleared obtain a BHN versus care team evaluation then re- evaluate. Patient understands agrees the plan. Reevaluation(s) Reevaluation #1: - patient mild elevation AST/ALT similar when compared to prior. All other labs are within normal limits. ETOH level negative. Negative COVID/RSV/flu swab. - EKG normal sinus rhythm with old Q-waves no acute ischemic changes and similar when compared to prior EKGs in 2018/2019. - herpes culture still pending at this time. - drug urine screen pending at this time. - patient is now resting in the chair awaiting BHN versus care team evaluation will continue to monitor. Time: 12:07 Reevaluation #2: - patient was evaluated by the care team and there was no detox beds at this time although they gave him a bunch of reference since and he started to discuss that he did not feel safe if he was discharged therefore pending [facility] evaluation at this time. Time: 15:09 [facility] - Psych Medical Records Attestation: I reviewed the patient's medical records. Lab Data Attestation: I reviewed the patient's lab results. Result diagrams: 11/06/20 10:30 11/06/20 10:30 Labs: Lab Results 11/06/20 11/06/20 11/06/20 Range/Units 10:29 10:30 10:30 WBC 6.9 (4.8-10.8) X10*3/uL RBC 4.41 L (4.60-5.80) X10*6/uL Hgb 12.7 L (14.0-18.0) g/dl Hct 36.9 L (42-52) % MCV 83.7 (80-98) fL MCH 28.8 (27.0-33.0) pg MCHC 34.4 (31.0-36.0) g/dl RDW 12.6 (11.0-16.0) % Plt Count 230 (160-400) X10*3/uL MPV 8.5 L (9.4-12.4) fL Immature Gran % (Auto) 0.4 (0.0-0.4) % Neut % (Auto) 63.0 (45-73) % Lymph % (Auto) 26.6 (20-40) % [place] % (Auto) 7.7 (2-11) % Eos % (Auto) 1.7 (0-4) % Baso % (Auto) 0.6 (0-2) % Lymph # (Auto) 1.8 (1.2-4.9) X10*3/uL [place] # (Auto) 0.5 (0.1-1.2) X10*3/uL Eos # (Auto) 0.1 (0.0-0.4) X10*3/uL Baso # (Auto) 0.0 (0.0-0.2) X10*3/uL Abs Immat Gran (auto) 0.03 (0.00-0.03) X10*3/uL Absolute Neuts (auto) 4.3 (2.0-8.3) X10*3/uL Absolute Nucleated RBC 0.000 (0.0-0.012) X10*3/uL Nucleated RBC % (auto) 0.0 (0.0-0.2) /100WBC Sodium 140 (135-145) mmol/L Potassium 3.5 (3.3-5.1) mmol/L Chloride 102 (96-108) mmol/L Carbon Dioxide 31 H (22-29) mmol/L Anion Gap 11 L (12-20) BUN 8 L (9-16) mg/dL Creatinine 0.77 (0.5-1.4) mg/dL Estim Creat Clear Calc 120.4 Estimated GFR > 60 Random Glucose 135 H D (60-115) mg/dL Calcium 8.8 (8.4-10.2) mg/dL Magnesium 1.9 (1.6-2.6) mg/dL Total Bilirubin 0.6 (0.0-1.0) mg/dL Direct Bilirubin 0.3 (0.0-0.5) mg/dL AST 42 H (5-37) U/L ALT 56 H (0-40) U/L Alkaline Phosphatase 105 D (39-117) U/L Total Protein 6.9 (6.5-8.0) g/dL Albumin 3.8 (3.5-5.0) g/dL Lipase (8-78) U/L Ethyl Alcohol mg/dL Coronavirus (PCR) NEGATIVE (Negative) Influenza Type A (PCR) NEGATIVE (Negative) Influenza Type B (PCR) NEGATIVE (Negative) RSV RNA Qual (PCR) NEGATIVE (Negative) 11/06/20 11/06/20 Range/Units 10:30 10:30 WBC (4.8-10.8) X10*3/uL RBC (4.60-5.80) X10*6/uL Hgb (14.0-18.0) g/dl Hct (42-52) % MCV (80-98) fL MCH (27.0-33.0) pg MCHC (31.0-36.0) g/dl RDW (11.0-16.0) % Plt Count (160-400) X10*3/uL MPV (9.4-12.4) fL Immature Gran % (Auto) (0.0-0.4) % Neut % (Auto) (45-73) % Lymph % (Auto) (20-40) % [place] % (Auto) (2-11) % Eos % (Auto) (0-4) % Baso % (Auto) (0-2) % Lymph # (Auto) (1.2-4.9) X10*3/uL [place] # (Auto) (0.1-1.2) X10*3/uL Eos # (Auto) (0.0-0.4) X10*3/uL Baso # (Auto) (0.0-0.2) X10*3/uL Abs Immat Gran (auto) (0.00-0.03) X10*3/uL Absolute Neuts (auto) (2.0-8.3) X10*3/uL Absolute Nucleated RBC (0.0-0.012) X10*3/uL Nucleated RBC % (auto) (0.0-0.2) /100WBC Sodium (135-145) mmol/L Potassium (3.3-5.1) mmol/L Chloride (96-108) mmol/L Carbon Dioxide (22-29) mmol/L Anion Gap (12-20) BUN (9-16) mg/dL Creatinine (0.5-1.4) mg/dL Estim Creat Clear Calc Estimated GFR Random Glucose (60-115) mg/dL Calcium (8.4-10.2) mg/dL Magnesium (1.6-2.6) mg/dL Total Bilirubin (0.0-1.0) mg/dL Direct Bilirubin (0.0-0.5) mg/dL AST (5-37) U/L ALT (0-40) U/L Alkaline Phosphatase (39-117) U/L Total Protein (6.5-8.0) g/dL Albumin (3.5-5.0) g/dL Lipase 17 (8-78) U/L Ethyl Alcohol < 10 mg/dL Coronavirus (PCR) (Negative) Influenza Type A (PCR) (Negative) Influenza Type B (PCR) (Negative) RSV RNA Qual (PCR) (Negative) ECG Data Attestation: I personally reviewed and interpreted this ECG as follows: ECG interpretation date: 11/06/20 ECG interpretation time: 11:19 Interpretation: Normal sinus rhythm with a ventricular rate of 83 old Q-wave noted no acute ischemic changes noted today. Similar when compared to prior EKG October 2018. Discharge Plan Discharge Clinical Impression: Depression, Acute anxiety, Impetigo, Substance abuse/dependence, Suicidal ideation Prescriptions: No Action clonazepam 1 mg Tablet 1 mg PO BID RF: 0 risperidone 2 mg Tablet 2 mg PO DAILY RF: 0 benztropine 1 mg Tablet 1 mg PO DAILY RF: 0 sertraline 50 mg Tablet 50 mg PO DAILY RF: 0 prazosin 2 mg Capsule 2 mg PO BEDTIME RF: 0 methadone 5 mg Tablet 45 mg PO DAILY RF: 0
[2020-11-06] MEDS: Mupirocin 2 % Oint 22 GM TUBE 1 APPL TOPICAL (12:19)
[2020-11-06 12:37] VITALS: BP 111/59; PULSE 80; RESP 16; O2SAT 95
--- NOTE | 2020-11-06 14:12 | PC.NURSE ---
pt information faxed to [facility], they stated they cannot confirm when they will be able to see the patient
--- NOTE | 2020-11-06 14:20 | MHC.CARE ---
CARE team met with pt due to SI concerns. Pt was drowsy and had difficult time engaging fully, but reported that he struggles with SI off and on throughout his life and reported that he has taken pills in the past and have tried different ways to hurt myself. Pt denied current SI but reports that he has thoughts intermittently off and on throughout his life around ending it. Pt denied plan or current means to commit suicide. Pt stated that his substance use and depression is a vicious cycle. Reported that he has a therapist and supports and reports that he wants to get clean and better. Pt would like to get help for his sobriety and would like to enter into a detox or treatment facility to receive additional help. Pt was referred to recovery nurse Kerri for detox placement.
--- NOTE | 2020-11-06 15:18 | MHC.RECOVRN ---
T/w met with pt to discuss recovery and desire for ATS placement. Unfortunately there are not any ATS bed available from here to [place]. Pt is on waitlist for [facility] and will be contacted when a bed becomes available. Pt encouraged to continue calling all facilities.
--- NOTE | 2020-11-06 15:24 | MHC.CARE ---
CARE team talked with recovery nurse Kerri and Kerri gave resources to pt. Pt was put [facility]list for [facility]. No beds available, Pt stated that he would not be safe leaving due to not having somewhere to go for detox. Ct did not feel safe leaving at this time and has been referred for [facility] crisis eval. CARE team will follow up with eta of clinician.
--- NOTE | 2020-11-06 15:24 | PC.NURSE ---
Awaiting BHN eval. Pt remains calm and cooperative.
[2020-11-06 17:59] VITALS: BP 113/70; PULSE 67; RESP 16; TEMP 36.1; O2SAT 98
--- NOTE | 2020-11-06 18:00 | PC.NURSE ---
Still awaiting N eval. Pt remains calm and cooperative at this time.
--- NOTE | 2020-11-06 20:00 | PC.NURSE ---
Pt resting in chair in hallway, breathing equal and unlabored. No distress, sitter in place. Awaiting BHN
[2020-11-07 00:12] VITALS: BP 124/80; PULSE 62; RESP 16; TEMP 36.6; O2SAT 97
[2020-11-07 04:00] VITALS: RESP 18
[2020-11-07 06:00] VITALS: RESP 16
--- NOTE | 2020-11-07 07:01 | PC.NURSE ---
report taken from Lita CARR. pt resting in chair in [place]. eating breakfast. waiting for N.
--- NOTE | 2020-11-07 07:58 | MHC.CARE ---
CARE Team spoke with patient, he denies any harm to self or others. He stated he has been depressed due to his substance use. He is seeking detox services and a list was provided yo him, and also he will be walking to the [facility] to get services needed. He is clear from the CARE Team.
== END 2020-11-07 09:46 | disposition home or self-care (01) ==
PROVIDERS: Physician Assistant Medical; Emergency Provider Emergency Medicine Emergency Medical Services; PCP Psychiatry & Neurology Psychiatry
DX: F32.9 Major depressive disorder, single episode, unspecified (principal); F41.9 Anxiety disorder, unspecified; L01.00 Impetigo, unspecified; F11.20 Opioid dependence, uncomplicated; F14.10 Cocaine abuse, uncomplicated; R45.851 Suicidal ideations; D64.9 Anemia, unspecified; F20.9 Schizophrenia, unspecified; Z20.822 Contact with and (suspected) exposure to COVID-19; Z91.5 Personal history of self-harm
CPT/HCPCS: 0241U; 36415; 80048; 80076; 80320; 83690; 83735; 85025; 87255; 93005; 99284

== ENCOUNTER 2021-05-03 09:07 | Emergency (ER) | payer OTHER, SELFPAY ==
[2021-05-03 09:32] VITALS: BP 104/64; PULSE 69; RESP 18; TEMP 36.8; O2SAT 97; BMI 28.2
--- NOTE | 2021-05-03 09:48 | ED_ITS ---
HPI - Psych General Chief Complaint: Psychiatric Symptoms Stated Complaint: multiple complaints Time Seen by Provider: 05/03/21 09:46 Source: patient Mode of arrival: ambulatory Limitations: no limitations History of Present Illness MD complaint: suicidal ideation, feels depressed and substance abuse Onset (ago): week(s) (1) Duration: constant and getting worse History of same: Yes Relieving factors: none Exacerbating factors: drug use Context: recent drug abuse Associated psychiatric symptoms: depression and suicidal ideation Associated symptoms: denies other symptoms Treatments prior to arrival: none If self harm: admits thoughts of self harm Related Data Home Medications Medication Instructions Recorded Confirmed benztropine 1 mg tablet 1 mg PO DAILY 07/14/20 08/23/20 clonazepam 1 mg tablet 1 mg PO BID 07/14/20 08/23/20 prazosin 2 mg capsule 2 mg PO BEDTIME 07/14/20 08/23/20 risperidone 2 mg tablet 2 mg PO DAILY 07/14/20 08/23/20 sertraline 50 mg tablet 50 mg PO DAILY 07/14/20 08/23/20 methadone 5 mg tablet 45 mg PO DAILY 07/15/20 07/15/20 Allergies Allergy/AdvReac Type Severity Reaction Status Date / Time No Known Allergies Allergy Verified 07/14/20 20:36 [No Known Allergies*] Review of Systems Review of Systems: Constitutional : No Fever, No Chills ENT/Mouth : No Ear Pain, No Nasal Congestion, No sore throat Eyes: No Eye Pain, No Swelling, No Redness Cardiovascular : No Chest Pain, No SOB Respiratory : No Cough, No Sputum, No Dyspnea Gastrointestinal : No Nausea, No Vomiting, No Diarrhea, No Hematochezia, No Melena Genitourinary : No Dysuria, No Urinary Frequency, No Hematuria Musculoskeletal : No Myalgias Skin : No Skin Lesions, No rash Neuro : No Weakness, No Numbness, No Paresthesias, No Dizziness, No Headache Psych : positive Anxiety, positive Depression, positive SI no HI Heme/Lymph: No Lymphadenopathy Endocrine : No Polyuria, No Polydipsia All other systems reviewed and are negative [facility] Past Medical History Attestation statement: The following information was validated with the patient. Medical History Anemia Substance abuse Social History Social History Alcohol intake: current Alcohol intake frequency: 3 or more drinks per day Alcohol type: beer Substance Use Type: Heroin Advance Directives: No Advance Directives Information Provided: No Physical Exam Vital Signs: Vital Signs: Last Vital Signs Temp 98.3 F 05/03/21 09:32 Pulse 69 05/03/21 09:32 Resp 18 05/03/21 09:32 BP 104/64 05/03/21 09:32 Pulse Ox 97 05/03/21 09:32 Body Mass Index 28.2 Appearance: Alert. Oriented X3. No acute distress. Eyes: Pupils equal, round and reactive to light. ENT: Pharynx normal. Neck: Normal inspection. Neck supple. CVS: Normal heart rate and rhythm. Pulses normal. Respiratory: No respiratory distress. Breath sounds normal. Abdomen: Soft and nontender. Skin: Skin warm and dry. Normal skin color. track chowdary noted on arms but no signs of infection Extremities: No lower extremity edema. No calf ttp Neuro: Oriented X 3. No motor deficit. No sensory deficit. CN 2-12 intact Psych: pos SI, no HI, calm and cooperative Course Course Course Narrative: LFTS at baseline, medically cleared Physician observation started at 1151am. Patient placed in physician observation because the patient needed more time for [facility] assessment. At the time observation was started the patient's vitals were stable, patient is alert and oriented, Neuro: nonfocal, CV RRR, Lungs clear [facility] has seen the patient - does not meet criteria for inpatient psychiatry patient has more substance abuse issues and needs to go to detox Physician observation ended at 340pm Patient seen and cleared by crisis. Plan is to follow up with detox resources from [facility] NAD, lungs clear, CV RRR, Abd nontender, Neuro intact. Disposition is for home. MDM - Psych MDM Narrative Medical decision making narrative: 40 yo male with hx of mental health issues and substance abuse at this time c/o SI and depression, will obtain basic labs, COVID swab refer to [facility]. Lab Data Result diagrams: 05/03/21 11:10 05/03/21 11:10 Labs: Lab Results 05/03/21 05/03/21 05/03/21 Range/Units 11:10 11:10 11:10 WBC 5.7 (4.8-10.8) X10*3/uL RBC 4.86 (4.60-5.80) X10*6/uL Hgb 14.1 (14.0-18.0) g/dl Hct 41.2 L (42-52) % MCV 84.8 (80-98) fL MCH 29.0 (27.0-33.0) pg MCHC 34.2 (31.0-36.0) g/dl RDW 12.7 (11.0-16.0) % Plt Count 224 (160-400) X10*3/uL MPV 9.1 L (9.4-12.4) fL Immature Gran % (Auto) 0.2 (0.0-0.4) % Neut % (Auto) 54.1 (45-73) % Lymph % (Auto) 36.1 (20-40) % [place] % (Auto) 7.5 (2-11) % Eos % (Auto) 1.6 (0-4) % Baso % (Auto) 0.5 (0-2) % Lymph # (Auto) 2.1 (1.2-4.9) X10*3/uL [place] # (Auto) 0.4 (0.1-1.2) X10*3/uL Eos # (Auto) 0.1 (0.0-0.4) X10*3/uL Baso # (Auto) 0.0 (0.0-0.2) X10*3/uL Abs Immat Gran (auto) 0.01 (0.00-0.03) X10*3/uL Absolute Neuts (auto) 3.1 (2.0-8.3) X10*3/uL Absolute Nucleated RBC 0.000 (0.0-0.012) X10*3/uL Nucleated RBC % (auto) 0.0 (0.0-0.2) /100WBC Sodium 142 (135-145) mmol/L Potassium 4.4 D (3.3-5.1) mmol/L Chloride 107 (96-108) mmol/L Carbon Dioxide 26 (22-29) mmol/L Anion Gap 13 (12-20) BUN 10 (9-16) mg/dL Creatinine 0.91 (0.5-1.4) mg/dL Estim Creat Clear Calc 107.9 Estimated GFR > 60 Random Glucose 101 (60-115) mg/dL Calcium 9.6 D (8.4-10.2) mg/dL Total Bilirubin (0.0-1.0) mg/dL Direct Bilirubin (0.0-0.5) mg/dL AST (5-37) U/L ALT (0-40) U/L Alkaline Phosphatase (39-117) U/L Total Protein (6.5-8.0) g/dL Albumin (3.5-5.0) g/dL Urine Opiates Screen (Not Detect) Urine Fentanyl Screen (Not Detect) Ur Barbiturates Screen (Not Detect) Ur Phencyclidine Scrn (Not Detect) Ur Amphetamines Screen (Not Detect) U Benzodiazepines Scrn (Not Detect) Urine Cocaine Screen (Not Detect) U Marijuana (THC) Screen (Not Detect) Ethyl Alcohol mg/dL COVID-19 (TRUNG) Negative (Negative) COVID-19 Clin Com See Note 05/03/21 05/03/21 05/03/21 Range/Units 11:10 11:10 11:10 WBC (4.8-10.8) X10*3/uL RBC (4.60-5.80) X10*6/uL Hgb (14.0-18.0) g/dl Hct (42-52) % MCV (80-98) fL MCH (27.0-33.0) pg MCHC (31.0-36.0) g/dl RDW (11.0-16.0) % Plt Count (160-400) X10*3/uL MPV (9.4-12.4) fL Immature Gran % (Auto) (0.0-0.4) % Neut % (Auto) (45-73) % Lymph % (Auto) (20-40) % [place] % (Auto) (2-11) % Eos % (Auto) (0-4) % Baso % (Auto) (0-2) % Lymph # (Auto) (1.2-4.9) X10*3/uL [place] # (Auto) (0.1-1.2) X10*3/uL Eos # (Auto) (0.0-0.4) X10*3/uL Baso # (Auto) (0.0-0.2) X10*3/uL Abs Immat Gran (auto) (0.00-0.03) X10*3/uL Absolute Neuts (auto) (2.0-8.3) X10*3/uL Absolute Nucleated RBC (0.0-0.012) X10*3/uL Nucleated RBC % (auto) (0.0-0.2) /100WBC Sodium (135-145) mmol/L Potassium (3.3-5.1) mmol/L Chloride (96-108) mmol/L Carbon Dioxide (22-29) mmol/L Anion Gap (12-20) BUN (9-16) mg/dL Creatinine (0.5-1.4) mg/dL Estim Creat Clear Calc Estimated GFR Random Glucose (60-115) mg/dL Calcium (8.4-10.2) mg/dL Total Bilirubin 0.7 (0.0-1.0) mg/dL Direct Bilirubin 0.3 (0.0-0.5) mg/dL AST 55 H (5-37) U/L ALT 94 H (0-40) U/L Alkaline Phosphatase 104 (39-117) U/L Total Protein 7.9 (6.5-8.0) g/dL Albumin 4.2 (3.5-5.0) g/dL Urine Opiates Screen POSITIVE H (Not Detect) Urine Fentanyl Screen POSITIVE H (Not Detect) Ur Barbiturates Screen Not Detected (Not Detect) Ur Phencyclidine Scrn Not Detected (Not Detect) Ur Amphetamines Screen Not Detected (Not Detect) U Benzodiazepines Scrn Not Detected (Not Detect) Urine Cocaine Screen POSITIVE H (Not Detect) U Marijuana (THC) Screen POSITIVE H (Not Detect) Ethyl Alcohol < 10 mg/dL COVID-19 (TRUNG) (Negative) COVID-19 Clin Com Discharge Plan Discharge Clinical Impression: Active substance abuse Depression Qualifiers: Depression Type: other depression Qualified Code(s): F32.89 - Other specified depressive episodes Patient Disposition: Home, Self-Care Instructions: Depression (ED), Polysubstance Abuse (ED) Additional Instructions: return to ED for any worsening symptoms or concerns Prescriptions: No Action clonazepam 1 mg Tablet 1 mg PO BID RF: 0 risperidone 2 mg Tablet 2 mg PO DAILY RF: 0 benztropine 1 mg Tablet 1 mg PO DAILY RF: 0 sertraline 50 mg Tablet 50 mg PO DAILY RF: 0 prazosin 2 mg Capsule 2 mg PO BEDTIME RF: 0 methadone 5 mg Tablet 45 mg PO DAILY RF: 0 Referrals: [facility] [Physician] - 2 days
[2021-05-03 11:18] LABS: MANUAL DIFF FLAG NO
[2021-05-03 11:24] LABS: Basophils Percent Auto 0.5 % (0-2); Eosinophils Absolute Auto 0.1 X10*3/uL (0.0-0.4); Eosinophils Percent Auto 1.6 % (0-4); Hematocrit 41.2 % (42-52); Hemoglobin 14.1 g/dl (14.0-18.0); Imm Gran Abs Auto 0.01 X10*3/uL (0.00-0.03); Imm Gran Pct Auto 0.2 % (0.0-0.4); Lymphocytes Absolute Auto 2.1 X10*3/uL (1.2-4.9); Lymphocytes Percent Auto 36.1 % (20-40); Mean Corpuscular HGB Conc 34.2 g/dl (31.0-36.0); Mean Corpuscular Volume 84.8 fL (80-98); Mean Platelet Volume 9.1 fL (9.4-12.4); Monocytes Absolute Auto 0.4 X10*3/uL (0.1-1.2); Monocytes Percent Auto 7.5 % (2-11); Neutrophils Absolute Auto 3.1 X10*3/uL (2.0-8.3); Neutrophils Percent Auto 54.1 % (45-73); Platelet Count 224 X10*3/uL (160-400); Red Blood Count 4.86 X10*6/uL (4.60-5.80); Red Cell Distribution Width 12.7 % (11.0-16.0); White Blood Count 5.7 X10*3/uL (4.8-10.8)
[2021-05-03 11:40] LABS: COVID-19 Test Negative (Negative); IDNOW Serial# 08D9AD1C
[2021-05-03 11:41] LABS: Anion Gap 13 (12-20); Blood Urea Nitrogen 10 mg/dL (9-16); Calcium 9.6 mg/dL (8.4-10.2); Carbon Dioxide 26 mmol/L (22-29); Chloride 107 mmol/L (96-108); Creatinine Clr Calc Pharmacy 107.9; Estimated Glomerular Filt Rate > 60; Glucose Random 101 mg/dL (60-115); Potassium 4.4 mmol/L (3.3-5.1); Sodium 142 mmol/L (135-145)
[2021-05-03 11:42] LABS: Ethanol < 10 mg/dL
[2021-05-03 11:45] LABS: Alanine Aminotransferase 94 U/L (0-40); Albumin Level 4.2 g/dL (3.5-5.0); Alkaline Phosphatase 104 U/L (39-117); Amphetamine Screen Urine Not Detected (Not Detect); Aspartate Amino Transferase 55 U/L (5-37); Barbiturates, Urine Not Detected (Not Detect); Benzodiazepines Screen Urine Not Detected (Not Detect); Bilirubin Direct 0.3 mg/dL (0.0-0.5); Bilirubin Total 0.7 mg/dL (0.0-1.0); Cannabinoid Screen Urine POSITIVE (Not Detect); Cocaine Screen Urine POSITIVE (Not Detect); Fentanyl, urine POSITIVE (Not Detect); Opiate Screen Urine POSITIVE (Not Detect); Phencyclidine Screen Urine Not Detected (Not Detect); Total Protein 7.9 g/dL (6.5-8.0)
--- NOTE | 2021-05-03 15:45 | PC.NURSE ---
Pt seen by crisis. Awaiting report for disposition/plan. Sitter remains at bedside. Pt remains calm and cooperative.
--- NOTE | 2021-05-03 16:12 | PC.NURSE ---
N does not feel that this patient fits criteria for inpatient at this time. agrees with plan per her eval. Pt to be sent home with resources for outpatient psychiatry program and detox facilities. Pt provided with lists of phone numbers. He denies SI at this time but keeps requesting to be admitted and does not want to leave. MD aware. Pt again re-educated on the plan of care.
== END 2021-05-03 16:23 | disposition home or self-care (01) ==
PROVIDERS: Emergency Provider Emergency Medicine; PCP Family Medicine
DX: F33.1 Major depressive disorder, recurrent, moderate (principal); R45.851 Suicidal ideations; F14.10 Cocaine abuse, uncomplicated; F11.10 Opioid abuse, uncomplicated; F12.10 Cannabis abuse, uncomplicated; Z20.822 Contact with and (suspected) exposure to COVID-19; Z79.899 Other long term (current) drug therapy
CPT/HCPCS: 36415; 80048; 80076; 80307; 82077; 85025; 87635; 99283; 99284

== ENCOUNTER 2021-05-30 07:40 | Emergency (ER) | payer OTHER, SELFPAY ==
[2021-05-30 08:04] VITALS: BP 131/88; PULSE 64; RESP 14; TEMP 36.6; O2SAT 99; BMI 27.4
--- NOTE | 2021-05-30 08:12 | PC.NURSE ---
PT WAS SEEN BY DR DÍAZ. HE THEN WALKED OUT OF THE ED. HIS GAIT WAS STEADY AND PT APPEARED IN NO ACUTE DISTRESS.
--- NOTE | 2021-05-30 08:13 | ED_ITS ---
HPI - Back Pain/Injury General Chief Complaint: Back Pain/Injury Stated Complaint: BACK PAIN FALL Time Seen by Provider: 05/30/21 08:12 History of Present Illness HPI Narrative: Patient 40-year-old male status post accidental fall complaining of pain to the left back. Patient also has a history of being on methadone. Patient wants is methadone. Patient denies any loss of consciousness. Denies any nausea vomiting. No pain prior to fall. Denies any focal weakness. Patient is ambulatory. No dizziness. Related Data Home Medications Medication Instructions Recorded Confirmed benztropine 1 mg tablet 1 mg PO DAILY 07/14/20 08/23/20 clonazepam 1 mg tablet 1 mg PO BID 07/14/20 08/23/20 prazosin 2 mg capsule 2 mg PO BEDTIME 07/14/20 08/23/20 risperidone 2 mg tablet 2 mg PO DAILY 07/14/20 08/23/20 sertraline 50 mg tablet 50 mg PO DAILY 07/14/20 08/23/20 methadone 5 mg tablet 45 mg PO DAILY 07/15/20 07/15/20 Allergies Allergy/AdvReac Type Severity Reaction Status Date / Time No Known Allergies Allergy Verified 07/14/20 20:36 [No Known Allergies*] Review of Systems Review of Systems: No nausea no vomiting no fever no chills no cough no congestion no focal weakness Yes all other systems are reviewed and are negative [facility] Past Medical History Attestation statement: The following information was validated with the patient. Medical History Anemia Substance abuse Social History Social History Alcohol intake: current Alcohol intake frequency: 3 or more drinks per day Alcohol type: beer Substance Use Type: Heroin Advance Directives: Yes Advance Directives Information Provided: Yes Advance Directives on File: No Physical Exam Vital Signs: Vital Signs: Last Vital Signs Temp 97.8 F 05/30/21 08:04 Pulse 64 05/30/21 08:04 Resp 14 05/30/21 08:04 BP 131/88 05/30/21 08:04 Pulse Ox 99 05/30/21 08:04 Body Mass Index 27.4 Appearance: Alert. Oriented X3. No acute distress. Eyes: Pupils equal, round and reactive to light. ENT: Pharynx normal. Neck: Normal inspection. Neck supple. No lymph nodes noted. No crepitus CVS: Normal heart rate and rhythm. Pulses normal. Normal S1 and S2 Respiratory: No respiratory distress. Breath sounds normal. No Wheezing. No rales Abdomen: Soft and nontender. No rigidity. No distention. good BS x4 Skin: Skin warm and dry. Normal skin color. Normal skin turgor. Examination back there is no spinal tenderness in the seated on palpation. There is no paraspinal muscle tenderness elicited on palpation. Patient ambulated with normal gait without any difficulties. Extremities: No lower extremity edema. Neurovascular intact to all extremities. No Lacerations. No Rash Neuro: Oriented X 3. No motor deficit. No sensory deficit. Moving all extermities. No slurred speech MDM - Back Pain/Injury MDM Narrative Medical decision making narrative: Patient well-appearing there is no bowel urinary incontinence is no focal weakness. Patient's ambulated with normal gait without any difficulties. Patient wanted his methadone. Was told that he needs to arrange for his own ride to [place]. We do not provide a taxi voucher is at this time. Patient states understanding. Told to follow-up with his primary physician for his back pain. Currently in stable condition. There was no head injury patient is not on blood thinners. Discharge Plan Discharge Clinical Impression: Strain of lumbar region Patient Disposition: Home, Self-Care Instructions: Back Pain (ED) Prescriptions: No Action clonazepam 1 mg Tablet 1 mg PO BID RF: 0 risperidone 2 mg Tablet 2 mg PO DAILY RF: 0 benztropine 1 mg Tablet 1 mg PO DAILY RF: 0 sertraline 50 mg Tablet 50 mg PO DAILY RF: 0 prazosin 2 mg Capsule 2 mg PO BEDTIME RF: 0 methadone 5 mg Tablet 45 mg PO DAILY RF: 0 Referrals: Gautam Macdonald MD [Primary Care Provider] - 2 days
== END 2021-05-30 08:29 | disposition home or self-care (01) ==
PROVIDERS: Emergency Provider Emergency Medicine Emergency Medical Services; PCP Psychiatry & Neurology Psychiatry
DX: S39.012A Strain of muscle, fascia and tendon of lower back, initial encounter (principal); F11.90 Opioid use, unspecified, uncomplicated; X58.XXXA Exposure to other specified factors, initial encounter; Y93.9 Activity, unspecified; Y92.9 Unspecified place or not applicable; Y99.9 Unspecified external cause status; Z79.899 Other long term (current) drug therapy
CPT/HCPCS: 99282

== ENCOUNTER 2021-10-05 06:22 | Emergency (ER) | payer OTHER, SELFPAY ==
--- NOTE | ~2021-10-05 | XR_ITS ---
EXAMINATION: XR ELBOW, RIGHT CLINICAL INFORMATION: Evaluate for foreign body COMPARISON: Previous humerus x-ray from earlier the same day TECHNIQUE: AP, lateral, and oblique views of the right elbow. FINDINGS: Bone alignment is normal. No fracture or dislocation is seen. The joint spaces are normal. There is no elbow joint effusion. There is a small osteophyte at the triceps tendon insertion to the olecranon. There are 2 soft tissue foreign body in the radial or lateral side of the antecubital fossa. One is superficial 5 mm from the skin surface. The other is a deeper, possibly 1.5 to 3 cm deep from the skin surface. XR/XR elbow RT 2V IMPRESSION: Soft tissue foreign bodies, profunda needles in the antecubital fossa. Small olecranon osteophyte.
--- NOTE | ~2021-10-05 | XR_ITS ---
EXAMINATION: XR HUMERUS, RIGHT CLINICAL INFORMATION: Broken needle COMPARISON: None TECHNIQUE: AP and lateral views of the right humerus. FINDINGS: There are 2 soft tissue foreign bodies seen in the lateral or radial side of the antecubital fossa suggestive of broken needles. Bone alignment is normal. No fracture or dislocation is seen. Joint spaces are normal. Soft tissues are otherwise normal. XR/XR humerus RT IMPRESSION: 2 soft tissue foreign bodies consistent with with broken needles in the antecubital fossa.
--- NOTE | ~2021-10-05 | XR_ITS ---
EXAMINATION: XR CHEST CLINICAL INFORMATION: Shortness of breath COMPARISON: Previous chest CT October 2018 TECHNIQUE: 2 views of the chest were obtained. FINDINGS: No significant abnormality is noted involving the heart, lungs, mediastinum, bony thorax or soft tissues. XR/XR chest 2V IMPRESSION: Unremarkable examination.
[2021-10-05 06:33] VITALS: BP 121/82; PULSE 76; RESP 18; TEMP 36.7; O2SAT 99; BMI 27.4
[2021-10-05 06:54] LABS: Appearance Urine HAZY; Color Urine YELLOW; Glucose Urine UA NEG (NEG); Leukocyte Esterase Urine NEG (NEG); Nitrite Urine NEG (NEG); Urine Blood NEG (NEG); Urine Ketones NEG (NEG); Urine Protein NEG (NEG-TRACE)
[2021-10-05 07:12] LABS: COVID-19 Test Negative (Negative)
--- NOTE | 2021-10-05 07:16 | PC.NURSE ---
patient appears to remain asleep at present respirations are even and unlabored, patient appears in no distress
--- NOTE | 2021-10-05 07:22 | ECG_ITS ---
Test Reason : medical clearance Blood Pressure : / mmHG Vent. Rate : 067 BPM Atrial Rate : 067 BPM P-R Int : 156 ms QRS Dur : 108 ms QT Int : 444 ms P-R-T Axes : 064 072 085 degrees QTc Int : 469 ms Normal sinus rhythm Minimal voltage criteria for LVH, may be normal variant ( Sokolow-Osullivan ) Borderline ECG When compared with ECG of 06-NOV-2020 11:19, No significant change was found Referred By: Giuseppe Mares Electronically Signed By:ALEXANDER GO MD
[2021-10-05 07:34] LABS: Amphetamine Screen Urine Not Detected (Not Detect); Barbiturates, Urine Not Detected (Not Detect); Benzodiazepines Screen Urine Not Detected (Not Detect); Cannabinoid Screen Urine POSITIVE (Not Detect); Cocaine Screen Urine POSITIVE (Not Detect); Fentanyl, urine POSITIVE (Not Detect); Opiate Screen Urine POSITIVE (Not Detect); Phencyclidine Screen Urine Not Detected (Not Detect)
--- NOTE | 2021-10-05 07:36 | ED.GENADULT ---
HPI - General Adult General Chief complaint: Psychiatric Symptoms Stated complaint: depression, SI, believes needle to be stuck in arm Time Seen by Provider: 10/05/21 07:00 Source: patient Limitations: no limitations History of Present Illness HPI narrative: This is a 41-year-old male with history of schizophrenia, and depression, complains of suicidal ideation. The patient's thought of overdosing either with pills or with an injection. The patient does hear voices which tell him to kill himself. He notes no problem with his appetite, but does feel depressed recently. Patient also notes that he had injected in his right antecubital fossa area this morning about an hour ago and states that he believes the needle broke off in his arm. Patient does have some intermittent shortness of breath. He denies any cough or fever. He also notes that he has chest pain especially in his posterior chest sometimes when he walks. Denies any nausea vomiting. The patient has been staying with a friend, states that he would like to get into ?a program? Related Data Home Medications Medication Instructions Recorded Confirmed benztropine 1 mg tablet 1 tab PO DAILY 10/05/21 10/05/21 clonazepam 1 mg tablet 1 tab PO BID PRN 10/05/21 10/05/21 prazosin 2 mg capsule 1 cap PO BEDTIME 10/05/21 10/05/21 risperidone 2 mg tablet (Risperdal) 1 tab PO BEDTIME 10/05/21 10/05/21 sertraline 50 mg tablet (Zoloft) 1 tab PO QAM 10/05/21 10/05/21 Allergies Allergy/AdvReac Type Severity Reaction Status Date / Time No Known Allergies Allergy Verified 07/14/20 20:36 [No Known Allergies*] Review of Systems Constitutional: Constitutional: Reports as per HPI, Denies anorexia, Denies fever(s) and Denies headache(s) Eyes: Eyes: Reports no additional eye complaints ENT: Reports system reviewed and no additional complaints, except as documented and Denies headache(s) Cardiovascular: Cardiovascular: Reports as per HPI Respiratory: Respiratory: Reports as per HPI Gastrointestinal: Gastrointestinal: Denies abdominal pain, Denies nausea and Denies vomiting Musculoskeletal: Comments: Pain right antecubital fossa so where he believes the needle broke off Neurologic: Denies headache(s) and Denies Sensory deficit (Neuro) Psychiatric: Psychiatric: Reports depression and Reports suicidal ideation [facility] Past Medical History Medical History Anemia Substance abuse Social History Social History Alcohol intake: current Alcohol intake frequency: 3 or more drinks per day Alcohol type: beer Substance Use Type: Heroin Advance Directives: No Advance Directives Information Provided: Yes Physical Exam Vital Signs: Vital Signs: Last Vital Signs Temp 97.9 F 10/05/21 07:53 Pulse 79 10/05/21 07:53 Resp 13 10/05/21 07:53 BP 134/86 10/05/21 07:53 Pulse Ox 100 10/05/21 07:53 BMI result Body Mass Index 27.4 Const: General: cooperative, no acute distress and alert Orientation/consciousness: patient oriented x3 HENMT: Head: Yes normal to inspection Eyes: General: appearance normal, both eyes and all related structures Eyelids: Yes eyelids normal Conjunctivae: conjunctivae normal Pupils: Equal, round and reactive pupils present Neck: Neck: Yes normal visual inspection and Yes supple Chest: Chest palpation & inspection: normal inspection of the chest Resp: Effort & Inspection: normal respiratory effort Auscultation: clear to auscultation bilaterally Cardio: Rate: regular rate Rhythm: regular rhythm Heart sounds: S1 normal heart sound present, S2 normal heart sound present, no gallops, no murmurs and no rubs GI: Palpation (GI): Soft to palpation, nontender and Other GI palpation findings present (Non-distended) Auscultation: normal bowel sounds Skin: General skin exam: no rashes or lesions noted Neuro: General: patient oriented x3, no focal motor deficits and CN's II-XI intact bilaterally Cranial nerves: Yes Equal, round and reactive pupils present Cognition (Neuro): normal cognition Motor exam (neuro): 5/5 motor strength present throughout Sensory Exam: No Sensory deficit (Neuro) Extrem: Other: Right antecubital fossa with track chowdary, some prominence veins focally in antecubital fossas of area but no localized erythema or swelling, no induration General: Yes normal to inspection and Yes no pedal edema Psych: Appearance: grossly normal Speech and movement: Normal speech and movement present Affect: Indifferent affect present Medical Decision Making MDM Narrative Medical decision making narrative: Patient complained of a needle which broke off in his right antecubital fossa area, and the patient did have evidence of 2 needle Adrianna's imbedded in the soft tissue. Bedside ultrasound was used to try to assess the depth however cannot see the echogenic needles well on ultrasound. Lateral elbow x-ray was obtained to further assess the depth. Discussed the findings of the foreign bodies with Dr. Pérez of surgery and he stated that if the patient were admitted he would follow the patient and have the foreign bodies removed, otherwise they could be removed as an outpatient visit. Patient also complained of mild intermittent chest pain, sometimes with exertion. EKG was unremarkable. Troponin is negative. Lab Data Lab results reviewed: Yes I reviewed the patient's lab results. Labs: Lab Results 10/05/21 10/05/21 10/05/21 Range/Units 06:40 06:45 06:45 Troponin I High Sens (<3.5-35.0) ng/L Urine Color YELLOW Urine Appearance HAZY Urine pH 7.0 (5.0-8.0) Ur Specific [place] 1.010 (1.005-1.025) Urine Protein NEG (NEG-TRACE) MG/DL Urine Glucose (UA) NEG (NEG) MG/DL Urine Ketones NEG (NEG) MG/DL Urine Blood NEG (NEG) Urine Nitrite NEG (NEG) Ur Leukocyte Esterase NEG (NEG) Urine Opiates Screen POSITIVE H (Not Detect) Urine Fentanyl Screen POSITIVE H (Not Detect) Ur Barbiturates Screen Not Detected (Not Detect) Ur Phencyclidine Scrn Not Detected (Not Detect) Ur Amphetamines Screen Not Detected (Not Detect) U Benzodiazepines Scrn Not Detected (Not Detect) Urine Cocaine Screen POSITIVE H (Not Detect) U Marijuana (THC) Screen POSITIVE H (Not Detect) COVID-19 (TRUNG) Negative (Negative) COVID-19 Clin Com See Note 10/05/21 Range/Units 08:47 Troponin I High Sens 5.5 (<3.5-35.0) ng/L Urine Color Urine Appearance Urine pH (5.0-8.0) Ur Specific [place] (1.005-1.025) Urine Protein (NEG-TRACE) MG/DL Urine Glucose (UA) (NEG) MG/DL Urine Ketones (NEG) MG/DL Urine Blood (NEG) Urine Nitrite (NEG) Ur Leukocyte Esterase (NEG) Urine Opiates Screen (Not Detect) Urine Fentanyl Screen (Not Detect) Ur Barbiturates Screen (Not Detect) Ur Phencyclidine Scrn (Not Detect) Ur Amphetamines Screen (Not Detect) U Benzodiazepines Scrn (Not Detect) Urine Cocaine Screen (Not Detect) U Marijuana (THC) Screen (Not Detect) COVID-19 (TRUNG) (Negative) COVID-19 Clin Com Imaging Data Right humerus: Radiologist's impression: FINDINGS: No significant abnormality is noted involving the heart, lungs, mediastinum, bony thorax or soft tissues. XR/XR chest 2V IMPRESSION: Unremarkable examination. Chest x-ray: Radiologist's impression: No acute pathology ECG Data Attestation: I personally reviewed and interpreted this ECG as follows: Interpretation: Sinus rhythm with a rate of 67. Inverted T-wave in lead V2 with slight ST elevation in lead V2 and V3.. Minimal voltage criteria for LVH. Discharge Plan Discharge Clinical Impression: Suicidal ideation, Chronic schizophrenia, Foreign body granuloma of soft tissue of right forearm, Chest pain Prescriptions: No Action risperidone [Risperdal] 2 mg tablet 1 tab PO BEDTIME RF: 0 sertraline [Zoloft] 50 mg tablet 1 tab PO QAM RF: 0 prazosin 2 mg capsule 1 cap PO BEDTIME RF: 0 clonazepam 1 mg tablet 1 tab PO BID PRN (Reason: Anxiety) RF: 0 benztropine 1 mg tablet 1 tab PO DAILY RF: 0
[2021-10-05 07:53] VITALS: BP 134/86; PULSE 79; RESP 13; TEMP 36.6; O2SAT 100
[2021-10-05 09:13] LABS: Troponin-I High Sensitivity 5.5 ng/L (<3.5-35.0)
[2021-10-05] MEDS: Benztropine Mesylate 1 MG TABLET PO (10:08)
[2021-10-05] MEDS: Sertraline HCL 50 MG TABLET PO (10:08)
[2021-10-05] MEDS: Amoxicillin/Potassium Clav 875 MG TABLET PO (19:29)
[2021-10-05] MEDS: Prazosin HCL 1 MG CAPSULE 2 MG PO (19:29)
[2021-10-05] MEDS: clonazePAM 1 MG TABLET PO (19:29)
[2021-10-05] MEDS: risperiDONE 2 MG TABLET PO (19:30)
[2021-10-05] MEDS: Diphth,Pertus(ACell),Tet Adult 0.5 ML SYRINGE IM (19:30)
[2021-10-05 19:43] VITALS: BP 119/80; PULSE 70; RESP 18; TEMP 36.6; O2SAT 96
--- NOTE | 2021-10-05 20:43 | MHC.RECOVSUP ---
Met with Pt. Pt. was clear for detox from doctor. Try to find a detox for the Pt. was not successful Called all over [place] and was able to get Pt. on a waiting list for [facility].Spoke to Pt. and explained that he is on a few waiting list. Also spoke to the Care Team and explained the same thing to them too.
[2021-10-06 00:23] VITALS: PULSE 98
[2021-10-06] MEDS: LORazepam 1 MG TABLET 2 MG PO (00:32)
--- NOTE | 2021-10-06 06:18 | PC.NURSE ---
Patient slept through the night, no distress observed/reported, behavior calm, quiet, and appropriate. Medication compliant, recovery auditor is coordinating detox bed search, will continue to monitor.
[2021-10-06 06:22] VITALS: BP 116/69; PULSE 73; RESP 17; TEMP 36.7; O2SAT 99
--- NOTE | 2021-10-06 07:10 | PC.NURSE ---
patient appears to remain asleep at present respirations are even and unlabored, patient appears in no distress
--- NOTE | 2021-10-06 09:03 | MHC.CARE ---
Patient's assessment, labs, face sheet and medication list faxed to [facility]
[2021-10-06] MEDS: Sertraline HCL 50 MG TABLET PO (09:44)
[2021-10-06] MEDS: Amoxicillin/Potassium Clav 875 MG TABLET PO (09:44)
[2021-10-06] MEDS: Benztropine Mesylate 1 MG TABLET PO (09:44)
[2021-10-06] MEDS: clonazePAM 1 MG TABLET PO (09:54)
--- NOTE | 2021-10-06 12:13 | MHC.RECOVSUP ---
? Reason for consult:Recovery Support o Current location:[facility] o Identified substance use concern:Heroine - Withdrawal - Seeking ATS (detox) - Support ? Intervention: o ATS bed search started/completed/in process o Community resources provided o Harm reduction discussion ? Plan: o Referral to [facility] o Bed search in progress to o Patient to follow up with [facility] after discharge ? Additional information:Patient getting discharged, patient did not want to wait for a bed. Gave patient referrals to the [facility] and patient to f/u with [facility].`
== END 2021-10-06 12:51 | disposition home or self-care (01) ==
PROVIDERS: Emergency Provider Emergency Medicine
DX: F33.1 Major depressive disorder, recurrent, moderate (principal); M60.221 Foreign body granuloma of soft tissue, not elsewhere classified, right upper arm; R45.851 Suicidal ideations; S40.811A Abrasion of right upper arm, initial encounter; R44.0 Auditory hallucinations; R07.89 Other chest pain; F11.10 Opioid abuse, uncomplicated; Z20.822 Contact with and (suspected) exposure to COVID-19; X78.9XXA Intentional self-harm by unspecified sharp object, initial encounter; Y93.9 Activity, unspecified; Y92.9 Unspecified place or not applicable; Y99.9 Unspecified external cause status; Z79.899 Other long term (current) drug therapy; Z71.51 Drug abuse counseling and surveillance of drug abuser
CPT/HCPCS: 36415; 71046; 73060; 73070; 80307; 81003; 84484; 87635; 90471; 90715; 93005; 99284

== ENCOUNTER 2022-05-26 01:18 | Emergency (ER) | payer OTHER, SELFPAY ==
[2022-05-26 01:24] VITALS: BP 118/90; PULSE 99; RESP 17; TEMP 36.8; O2SAT 99; BMI 29.0
--- NOTE | 2022-05-26 01:24 | PC.NURSE ---
1:1 at pt.'s bedside
--- NOTE | 2022-05-26 01:46 | ECG_ITS ---
Test Reason : bradycardia Blood Pressure : / mmHG Vent. Rate : 059 BPM Atrial Rate : 059 BPM P-R Int : 156 ms QRS Dur : 106 ms QT Int : 478 ms P-R-T Axes : 060 074 081 degrees QTc Int : 473 ms Sinus bradycardia Minimal voltage criteria for LVH, may be normal variant ( Sokolow-Osullivan ) Borderline ECG When compared with ECG of 05-OCT-2021 08:01, T wave inversion no longer evident in Anterior leads Heart rate has decreased Referred By: Hoa Reis Electronically Signed By:TAPAN GAUTHIER
--- NOTE | 2022-05-26 01:55 | ED.PSYCH ---
HPI - Psych General Chief Complaint: Psychiatric Symptoms Stated Complaint: SI Time Seen by Provider: 05/26/22 01:45 History of Present Illness HPI Narrative: Patient is a 41-year-old male who took an overdose 8 tablets unknown substance. Patient found in the garbage can. Positive thoughts of wanting to hurt himself. Denies recreational drugs. Patient from home. Patient states he does not feel safe. Payment for further evaluation. Normally takes a daily. Related Data Home Medications Medication Instructions Recorded Confirmed benztropine 1 mg tablet 1 tab PO DAILY 10/05/21 10/05/21 clonazepam 1 mg tablet 1 tab PO BID PRN Anxiety 10/05/21 10/05/21 prazosin 2 mg capsule 1 cap PO BEDTIME 10/05/21 10/05/21 risperidone 2 mg tablet (Risperdal) 1 tab PO BEDTIME 10/05/21 10/05/21 sertraline 50 mg tablet (Zoloft) 1 tab PO QAM depressive disorder 10/05/21 10/05/21 Previous Rx's Medication Instructions Recorded amoxicillin 875 mg-potassium 1 tab PO Q12H 10 days #20 tabs 10/06/21 clavulanate 125 mg tablet (Augmentin) Allergies Allergy/AdvReac Type Severity Reaction Status Date / Time No Known Allergies Allergy Verified 07/14/20 20:36 [No Known Allergies*] Review of Systems Review of Systems: No fever no chills no chest pain or shortness of breath no diaphoresis Yes all other systems are reviewed and are negative PMFSH Past Medical History Attestation statement: The following information was validated with the patient. Medical History Anemia Substance abuse Social History Social History Alcohol intake: current Alcohol intake frequency: 3 or more drinks per day Alcohol type: beer Substance Use Type: Heroin Physical Exam Vital Signs: Vital Signs: Last Vital Signs Temp 98.2 F 05/26/22 01:24 Pulse 99 05/26/22 01:24 Resp 17 05/26/22 01:24 BP 118/90 H 05/26/22 01:24 Pulse Ox 99 05/26/22 01:24 O2 Del Method 05/26/22 01:24 BMI result Body Mass Index 29.0 Appearance: Alert. Oriented X3. No acute distress. Eyes: Pupils equal, round and reactive to light. ENT: Pharynx normal. Neck: Normal inspection. Neck supple. No lymph nodes noted. No crepitus CVS: Normal heart rate and rhythm. Pulses normal. Normal S1 and S2 Respiratory: No respiratory distress. Breath sounds normal. No Wheezing. No rales Abdomen: Soft and nontender. No rigidity. No distention. good BS x4 Skin: Skin warm and dry. Normal skin color. Normal skin turgor. Extremities: No lower extremity edema. Neurovascular intact to all extremities. No Lacerations. No Rash Neuro: Oriented X 3. No motor deficit. No sensory deficit. Moving all extermities. No slurred speech. Grossly cranial nerve intact MDM - Psych MDM Narrative Medical decision making narrative: Will get labs and EKG. Monitor carefully. Will require PHN evaluation for suicidal ideation Medical Records Attestation: I reviewed the patient's medical records. Discharge Plan Discharge Clinical Impression: Suicidal ideation Patient Disposition: Still a Patient Prescriptions: No Action risperidone [Risperdal] 2 mg tablet 1 tab PO BEDTIME sertraline [Zoloft] 50 mg tablet 1 tab PO QAM prazosin 2 mg capsule 1 cap PO BEDTIME clonazepam 1 mg tablet 1 tab PO BID PRN (Reason: Anxiety) benztropine 1 mg tablet 1 tab PO DAILY amoxicillin-pot clavulanate [Augmentin] 875-125 mg tablet 1 tab PO Q12H 10 Days Qty: 20 0RF
[2022-05-26 02:11] VITALS: BP 123/72; PULSE 69; RESP 18; O2SAT 95
[2022-05-26 02:28] LABS: MANUAL DIFF FLAG NO
[2022-05-26 02:30] LABS: Basophils Percent Auto 0.4 % (0-2); Eosinophils Percent Auto 0.1 % (0-4); Hematocrit 43.3 % (42.0-52.0); Imm Gran Abs Auto 0.04 X10*3/uL (0.00-0.03); Imm Gran Pct Auto 0.4 % (0.0-0.4); Lymphocytes Absolute Auto 2.7 X10*3/uL (1.2-4.9); Lymphocytes Percent Auto 27.5 % (20-40); Mean Corpuscular HGB Conc 34.6 g/dl (31.0-36.0); Mean Corpuscular Hemoglobin 29.1 pg (27.0-33.0); Mean Corpuscular Volume 83.9 fL (80.0-98.0); Mean Platelet Volume 8.5 fL (9.4-12.4); Monocytes Absolute Auto 0.5 X10*3/uL (0.1-1.2); Monocytes Percent Auto 5.2 % (2-11); Neutrophils Absolute Auto 6.6 x10*3/uL (2.0-8.3); Neutrophils Percent Auto 66.4 % (45-73); Platelet Count 252 X10*3/uL (160-400); Red Blood Count 5.16 X10*6/uL (4.60-5.80); Red Cell Distribution Width 13.2 % (11.0-16.0); White Blood Count 9.9 X10*3/uL (4.8-10.8)
[2022-05-26 02:48] LABS: Amphetamine Screen Urine Not Detected (Not Detect); Barbiturates, Urine Not Detected (Not Detect); Benzodiazepines Screen Urine Not Detected (Not Detect); Cannabinoid Screen Urine POSITIVE (Not Detect); Cocaine Screen Urine POSITIVE (Not Detect); Fentanyl, urine POSITIVE (Not Detect); Opiate Screen Urine POSITIVE (Not Detect); Phencyclidine Screen Urine Not Detected (Not Detect)
[2022-05-26 02:51] LABS: Acetaminophen LAB < 1 mcg/mL (<30); Alanine Aminotransferase 133 U/L (0-40); Albumin Level 4.6 g/dL (3.5-5.0); Alkaline Phosphatase 143 U/L (39-117); Anion Gap 16 (12-20); Aspartate Amino Transferase 84 U/L (5-37); Bilirubin Total 0.9 mg/dL (0.0-1.0); Blood Urea Nitrogen 16 mg/dL (9-16); Calcium 10.3 mg/dL (8.4-10.2); Carbon Dioxide 30 mmol/L (22-29); Chloride 93 mmol/L (96-108); Creatinine Clr Calc Pharmacy 111.9; Estimated Glomerular Filt Rate > 60; Ethanol < 10 mg/dL; Glucose Random 90 mg/dL (60-115); Salicylate < 5.0 mg/dL (15-30); Sodium 134 mmol/L (135-145); Total Protein 8.7 g/dL (6.5-8.0)
[2022-05-26] MEDS: ondansetron HCL 4 MG/2 ML VIAL IVPUSH (03:26)
[2022-05-26 05:20] VITALS: BP 128/82; PULSE 81; RESP 18
--- NOTE | 2022-05-26 06:05 | PC.NURSE ---
Per MD Codey, pt. is now on a Section 12
--- NOTE | 2022-05-26 07:20 | MHC.CARE ---
Smart sheet submitted
--- NOTE | 2022-05-26 07:28 | PC.NURSE ---
keo sent over to esme
--- NOTE | 2022-05-26 09:05 | PC.NURSE ---
luli from care team at bedside speaking to the pt, plan for pt to go to detox sitter at bedside
[2022-05-26 09:20] VITALS: BP 103/69; PULSE 68; RESP 17; O2SAT 99
--- NOTE | 2022-05-26 09:31 | MHC.CARE ---
CARE Team met with Pt who denies current SI/HI/AH/VH. Pt is advocating for substance use treatment, Pt reports daily heroin use.? Pts toxicology report was positive for opiates, fentanyl, cocaine and marijuana. Pt reports he is on 60mg of methadone from [facility]. Case reviewed with Dr. Boothe. Plan for Pt to be referred to the recovery team.
--- NOTE | 2022-05-26 10:37 | MHC.RECOVRN ---
Met with pt in ED12, pt interested in [facility] ATS. [facility] not [facility] bed availability. Referral sent to [facility].
--- NOTE | 2022-05-26 10:53 | MHC.RECOVRN ---
Spoke with Real at [facility], pt last received 70 mg methadone on 05/24/22. Christelle Mendoza APRN, aware.
[2022-05-26 11:13] VITALS: BP 111/73; PULSE 67; RESP 18; O2SAT 96
[2022-05-26] MEDS: methADONE HCl 20 MG/2 ML ORAL.CONC 70 MG PO (11:14)
--- NOTE | 2022-05-26 11:15 | PC.NURSE ---
pt alert and oriented, skin appropriate for ethnicity, respirations even and unlabored, pt states having body aches pain 04/20 pt denies si at this time but states he would like some help with his psych hx of feeling suicidal in the past its been about six months since he felt suicidal
--- NOTE | 2022-05-26 11:41 | MHC.RECOVRN ---
Follow up call to [facility]-have not reviewed referral yet, will return call once review is complete.
--- NOTE | 2022-05-26 12:23 | PC.NURSE ---
new plan pt is a EATS bed search, voluntary pt calm and cooperative, sitter in place
--- NOTE | 2022-05-26 13:53 | MHC.RECOVRN ---
2 messages left for [facility] nursing, awaiting call back.
--- NOTE | 2022-05-26 14:25 | PHA.MEDREC ---
Pharmacy Consult ? Medication Reconciliation Pharmacy has completed the medication reconciliation. Patient was a poor historian, told me to call [employer]. Used claims from [employer].
--- NOTE | 2022-05-26 15:41 | MHC.RECOVRN ---
[facility] declined pt due to methadone. Will not admit for cocaine use disorder. Pt and CARE Team aware. Plan to continue bedsearch.
[2022-05-26 19:51] LABS: COVID-19 Test Negative (Negative); IDNOW Serial# 16C4AD1C
[2022-05-26 19:58] VITALS: BP 107/75; PULSE 63; RESP 16; TEMP 36.8; O2SAT 98
[2022-05-27 03:09] VITALS: BP 116/79; PULSE 75; RESP 16; TEMP 36.2; O2SAT 97
--- NOTE | 2022-05-27 05:38 | PC.NURSE ---
Patient slept through the night, no distress observed/reported, behavior non concerning and appropriate, med rec completed/pending provider's approval, Methadone order active/received first dose yesterday, recovery team coordinating detox bed search, VSS, will continue to monitor.
--- NOTE | 2022-05-27 06:57 | PC.NURSE ---
patient appears to remain asleep at present respirations are even and unlabored patient appears in no distress
[2022-05-27] MEDS: methADONE HCl 20 MG/2 ML ORAL.CONC 70 MG PO (07:43)
[2022-05-27] MEDS: Naloxone HCl Nasal TAKE HOME 4 MG SPRAY NOSTRILALT (10:09)
--- NOTE | 2022-05-27 10:22 | MHC.RECOVSUP ---
Recovery Support note: This bid writer and Recovery Support RN met with patient to discuss discharge plan. Informed patient that the facilities that would be willing to accept him ([facility] do not have any beds at this time. Discussed discharging to the Living Room to continue working on the bedsearch and to pursue alternative options. Patient declined despite repeated encouragement. Resources and last dose letter provided.
== END 2022-05-27 10:50 | disposition home or self-care (01) ==
PROVIDERS: Emergency Medicine; Emergency Medicine Emergency Medical Services; Emergency Provider Emergency Medicine Emergency Medical Services; PCP Psychiatry & Neurology Child & Adolescent Psychiatry
DX: F33.1 Major depressive disorder, recurrent, moderate (principal); R45.851 Suicidal ideations; R00.1 Bradycardia, unspecified; F14.10 Cocaine abuse, uncomplicated; F11.10 Opioid abuse, uncomplicated; Z79.899 Other long term (current) drug therapy; Z20.822 Contact with and (suspected) exposure to COVID-19
CPT/HCPCS: 80053; 80143; 80179; 80307; 82077; 85025; 87635; 93005; 96374; 99285; J2405

== ENCOUNTER 2022-08-21 04:13 | Emergency (ER) | payer MEDICAID, SELFPAY ==
[2022-08-21 04:24] VITALS: BP 136/98; PULSE 60; RESP 17; TEMP 36.4; O2SAT 99; BMI 27.4
[2022-08-21 05:00] LABS: MANUAL DIFF FLAG NO
[2022-08-21 05:01] LABS: Basophils Percent Auto 0.4 % (0-2); Eosinophils Absolute Auto 0.1 X10*3/uL (0.0-0.4); Eosinophils Percent Auto 1.4 % (0-4); Hematocrit 39.5 % (42.0-52.0); Hemoglobin 13.3 g/dl (14.0-18.0); Imm Gran Abs Auto 0.02 X10*3/uL (0.00-0.03); Imm Gran Pct Auto 0.3 % (0.0-0.4); Lymphocytes Absolute Auto 2.1 X10*3/uL (1.2-4.9); Lymphocytes Percent Auto 27.9 % (20-40); Mean Corpuscular HGB Conc 33.7 g/dl (31.0-36.0); Mean Corpuscular Hemoglobin 28.6 pg (27.0-33.0); Mean Corpuscular Volume 84.9 fL (80.0-98.0); Mean Platelet Volume 8.5 fL (9.4-12.4); Monocytes Absolute Auto 0.6 X10*3/uL (0.1-1.2); Monocytes Percent Auto 7.6 % (2-11); Neutrophils Absolute Auto 4.8 x10*3/uL (2.0-8.3); Neutrophils Percent Auto 62.4 % (45-73); Platelet Count 251 X10*3/uL (160-400); Red Blood Count 4.65 X10*6/uL (4.60-5.80); Red Cell Distribution Width 12.8 % (11.0-16.0); White Blood Count 7.7 X10*3/uL (4.8-10.8)
[2022-08-21 05:13] LABS: COVID-19 Test Negative (Negative)
[2022-08-21 05:18] LABS: Alanine Aminotransferase 82 U/L (0-40); Alkaline Phosphatase 129 U/L (39-117); Anion Gap 12 (12-20); Aspartate Amino Transferase 56 U/L (5-37); Bilirubin Total 0.7 mg/dL (0.0-1.0); Blood Urea Nitrogen 12 mg/dL (9-16); Calcium 9.1 mg/dL (8.4-10.2); Carbon Dioxide 30 mmol/L (22-29); Chloride 99 mmol/L (96-108); Creatinine Clr Calc Pharmacy 126.7; Estimated Glomerular Filt Rate > 60; Glucose Random 69 mg/dL (60-115); Potassium 4.2 mmol/L (3.3-5.1); Sodium 137 mmol/L (135-145); Total Protein 7.5 g/dL (6.5-8.0)
[2022-08-21 05:23] LABS: Ethanol < 10 mg/dL
--- NOTE | 2022-08-21 05:32 | ED_ITS ---
HPI - Psych General Chief Complaint: Psychiatric Symptoms Stated Complaint: SI Time Seen by Provider: 08/21/22 05:23 Source: patient Mode of arrival: ambulatory Limitations: no limitations History of Present Illness HPI Narrative: Patient comes to the emergency room complaining of suicidal ideation. Patient states that he has been using drugs, recently relapsed and is making him feel more suicidal. Patient has been evaluated multiple times at this facility for SI. Patient denies homicidal ideation. Related Data Home Medications Medication Instructions Recorded Confirmed benztropine 1 mg tablet 1 tab PO DAILY 10/05/21 08/21/22 clonazepam 1 mg tablet 1 tab PO BID PRN Anxiety 10/05/21 08/21/22 prazosin 2 mg capsule 1 cap PO BEDTIME 10/05/21 08/21/22 risperidone 2 mg tablet (Risperdal) 1 tab PO BEDTIME 10/05/21 08/21/22 sertraline 50 mg tablet (Zoloft) 1 tab PO QAM depressive disorder 10/05/21 08/21/22 Allergies Allergy/AdvReac Type Severity Reaction Status Date / Time No Known Allergies Allergy Verified 07/14/20 20:36 [No Known Allergies*] Review of Systems Review of Systems: Constitutional : No Weight loss, No Fever, No Chills, No Night Sweats, No Fatigue, No Malaise ENT/Mouth : No Hearing loss, No Ear Pain, No Nasal Congestion, No Sinus Pain, No Hoarseness, No sore throat, No Rhinorrhea, No Swallowing Difficulty Eyes: No Eye Pain, No Swelling, No Redness, No Foreign Body, No Discharge, No Vision Changes Cardiovascular : No Chest Pain, No SOB, No Dyspnea on Exertion, No Orthopnea, No Edema, No Palpitations Respiratory : No Cough, No Sputum, No Wheezing, No Smoke Exposure, No Dyspnea Gastrointestinal : No Nausea, No Vomiting, No Diarrhea, No Constipation, No abdominal Pain, No Hematochezia, No Melena Genitourinary : no irregular bleeding, No Dysuria, No Urinary Frequency, No Hematuria, No Urinary Incontinence, No Urgency, No Flank Pain, No Urinary Flow Changes, No Hesitancy Musculoskeletal : No joint pain, No Myalgias, No Joint Swelling Skin : No Skin Lesions, No rash Neuro : No Weakness, No Numbness, No Paresthesias, No Loss of Consciousness, No Dizziness, No Headache Psych : Complaining of suicidal ideation Heme/Lymph: No Bruising, No Bleeding,No Lymphadenopathy Endocrine : No Polyuria, No Polydipsia, No Temperature Intolerance [facility] Past Medical History Medical History Anemia Substance abuse Social History Social History Alcohol intake: current Alcohol intake frequency: 3 or more drinks per day Alcohol type: beer Patient Tobacco Use Status: Current everyday Tobacco user Substance Use Type: Crack/Cocaine and Heroin Advance Directives: No Physical Exam Vital Signs: Vital Signs: Last Vital Signs Temp 97.5 F 08/21/22 04:24 Pulse 60 08/21/22 04:24 Resp 17 08/21/22 04:24 BP 136/98 H 08/21/22 04:24 Pulse Ox 99 08/21/22 04:24 O2 Del Method 08/21/22 04:24 BMI result Body Mass Index 27.4 Const: Other: Appearance: Alert. Oriented X3. No acute distress. Eyes: Pupils equal, round and reactive to light. ENT: Pharynx normal. Neck: Normal inspection. Neck supple. No lymph nodes noted. No crepitus CVS: Normal heart rate and rhythm. Pulses normal. Normal S1 and S2 Respiratory: No respiratory distress. Breath sounds normal. No Wheezing. No rales Abdomen: Soft and nontender. No rigidity. No distention. Skin: Skin warm and dry. Normal skin color. Normal skin turgor. Extremities: No lower extremity edema. No Lacerations. No Rash Neuro: Oriented X 3. No motor deficit. No sensory deficit. Moving all extremities. No slurred speech. CN 2 through 12 grossly intact Psych: calm, cooperative, normal affect Course Course Course Narrative: Patient to be evaluated by [facility] Physician observation started 05:30 Medical Decision Making Medical Decision Making Differential Diagnoses: Differential diagnosis (Suicidal ideation, anxiety, depression, malingering) Lab Attestation: I reviewed the patient's lab results. (Lab results are at baseline) Discharge Plan Discharge Clinical Impression: Suicidal ideation Patient Disposition: Still a Patient Prescriptions: No Action risperidone [Risperdal] 2 mg tablet 1 tab PO BEDTIME sertraline [Zoloft] 50 mg tablet 1 tab PO QAM prazosin 2 mg capsule 1 cap PO BEDTIME clonazepam 1 mg tablet 1 tab PO BID PRN (Reason: Anxiety) benztropine 1 mg tablet 1 tab PO DAILY
--- NOTE | 2022-08-21 05:34 | MHC.EDTECH ---
Patient unable to provide a urines sample at this time will continue to monitor RN is aware
--- NOTE | 2022-08-21 05:47 | PC.NURSE ---
Patient just checked in, patient is currently in bed resting quietly, behavior non concerning, med rec completed/pending provider's approval, pending urine sample, [facility] referral completed/confirmed/pending ETA, pending Methadone dose verification/paper work filled in, VSS, will continue to monitor.
[2022-08-21 07:48] VITALS: BP 112/68; PULSE 67; RESP 18; TEMP 37.1; O2SAT 95
--- NOTE | 2022-08-21 08:12 | HE.PHANOTE ---
Methadone Verification Pharmacy has received the methadone verification form from Sebastian. Patient last received methadone [facility] mg on 08/17/22 @ 1121 [facility]. Sebastian confirmed with HOLLIE London at the clinic. Holly Hernandez, LalaD
[2022-08-21] MEDS: methADONE HCl 20 MG/2 ML ORAL.CONC 70 MG PO (10:10)
[2022-08-21] MEDS: Sertraline HCL 50 MG TABLET PO (10:11)
[2022-08-21 11:19] LABS: Amphetamine Screen Urine Not Detected (Not Detect); Barbiturates, Urine Not Detected (Not Detect); Benzodiazepines Screen Urine POSITIVE (Not Detect); Cannabinoid Screen Urine POSITIVE (Not Detect); Cocaine Screen Urine POSITIVE (Not Detect); Fentanyl, urine POSITIVE (Not Detect); Opiate Screen Urine POSITIVE (Not Detect); Phencyclidine Screen Urine Not Detected (Not Detect)
--- NOTE | 2022-08-21 11:47 | PC.NURSE ---
Per care team: N arrival after 1500.
--- NOTE | 2022-08-21 12:59 | PC.NURSE ---
[facility] at bedside
--- NOTE | 2022-08-21 14:02 | PC.NURSE ---
Per N: ELYSSA galloway.
[2022-08-21 14:16] VITALS: BP 113/73; PULSE 64; RESP 16; TEMP 36.6; O2SAT 99
[2022-08-21] MEDS: Benztropine Mesylate 1 MG TABLET PO (21:00)
[2022-08-21] MEDS: risperiDONE 2 MG TABLET PO (21:00)
[2022-08-21] MEDS: Prazosin HCL 1 MG CAPSULE 2 MG PO (21:01)
[2022-08-21 21:09] VITALS: BP 125/90; PULSE 62; RESP 17; TEMP 36.8; O2SAT 96
--- NOTE | 2022-08-22 05:22 | PC.NURSE ---
Patient slept through the night, no distress observed/reported, medication compliant, behavior non concerning, patient assessed by [facility], disposition pending, patient will be reevaluated in the morning by [facility], VSS, will continue to monitor.
[2022-08-22 06:00] VITALS: BP 122/77; PULSE 66; RESP 16; TEMP 37.1; O2SAT 98
[2022-08-22] MEDS: methADONE HCl 20 MG/2 ML ORAL.CONC 70 MG PO (07:56)
[2022-08-22] MEDS: Sertraline HCL 50 MG TABLET PO (07:56)
== END 2022-08-22 09:21 | disposition home or self-care (01) ==
PROVIDERS: Emergency Medicine; Emergency Provider Emergency Medicine Emergency Medical Services; PCP Psychiatry & Neurology Psychiatry
DX: F33.1 Major depressive disorder, recurrent, moderate (principal); R45.851 Suicidal ideations; F17.210 Nicotine dependence, cigarettes, uncomplicated; Z71.6 Tobacco abuse counseling; F11.10 Opioid abuse, uncomplicated; F14.10 Cocaine abuse, uncomplicated; Z20.822 Contact with and (suspected) exposure to COVID-19; Z79.899 Other long term (current) drug therapy
CPT/HCPCS: 36415; 80053; 80307; 82077; 85025; 87635; 99284; 99285

== ENCOUNTER 2022-09-13 16:23 | Emergency (ER) | payer MEDICAID, SELFPAY ==
[2022-09-13 18:36] VITALS: BP 157/100; PULSE 76; RESP 18; TEMP 36.7; O2SAT 98; BMI 27.4
--- NOTE | 2022-09-13 18:36 | ED_ITS ---
HPI - General Adult General Chief complaint: ETOH/Substance Use <SHANON Wu - Last Filed: 09/13/22 18:39> Stated complaint: Withdrawals seeking detox <SHANON Wu - Last Filed: 09/13/22 18:39> Time Seen by Provider: 09/13/22 19:01 <SHANON Wu - Last Filed: 09/13/22 18:39> Source: patient <Erma Velez MD - Last Filed: 09/13/22 23:06> Mode of arrival: ambulatory <Erma Velez MD - Last Filed: 09/13/22 23:06> History of Present Illness HPI narrative: 42-year-old male with a history of polysubstance use as well as alcohol use with the last use of both of these the morning Monday. Patient states that he made arrangements a couple of days ago with a detox center and they said that they would hold his bed but he will need to get cleared. <Erma Velez MD - Last Filed: 09/13/22 23:06> Related Data Home medications: Home Medications Medication Instructions Recorded Confirmed benztropine 1 mg tablet 1 tab PO BEDTIME 10/05/21 08/21/22 clonazepam 1 mg tablet 1 tab PO BID PRN Anxiety 10/05/21 08/21/22 prazosin 2 mg capsule 1 cap PO BEDTIME 10/05/21 08/21/22 risperidone 2 mg tablet (Risperdal) 1 tab PO BEDTIME 10/05/21 08/21/22 sertraline 50 mg tablet (Zoloft) 1 tab PO DAILY depressive disorder 10/05/21 08/21/22 methadone 10 mg tablet 70 mg PO DAILY 08/21/22 09/14/22 <SHANON Wu - Last Filed: 09/13/22 18:39> Allergies/adverse reactions: Allergies Allergy/AdvReac Type Severity Reaction Status Date / Time No Known Allergies Allergy Verified 07/14/20 20:36 [No Known Allergies*] <SHANON Wu - Last Filed: 09/13/22 18:39> Review of Systems Review of Systems: Pertinent positives and negatives as stated in HPI <Erma Velez MD - Last Filed: 09/13/22 23:06> PMFSH Past Medical History Source: nursing notes reviewed <Erma Velez MD - Last Filed: 09/13/22 23:06> Medical History: Medical History Anemia Substance abuse <SHANON Wu - Last Filed: 09/13/22 18:39> Social History Social History: Social History Alcohol intake: current Alcohol intake frequency: 3 or more drinks per day Alcohol type: hard liquor Patient Tobacco Use Status: Current everyday Tobacco user Smoked in Last 30 Days: Yes Use of substances other than those prescribed or required for medical reasons: Yes Substance Use Type: Heroin, IV Drugs and Marijuana Advance Directives: No Advance Directives Information Provided: No <SHANON Wu - Last Filed: 09/13/22 18:39> Physical Exam ED Vital Signs: Vital Signs - 24 hr 09/13/22 18:36 09/13/22 18:59 09/14/22 00:32 Temperature 98.1 F 98.6 F Pulse Rate 76 74 62 Respiratory Rate 18 19 Blood Pressure 157/100 H 136/91 H 123/70 Pulse Oximetry 98 98 96 Oxygen Delivery Method Room Air Room Air Room Air 09/14/22 03:19 09/14/22 06:09 09/14/22 09:06 Temperature 98.9 F 98.5 F 97.6 F Pulse Rate 54 57 62 Respiratory Rate 19 17 16 Blood Pressure 119/78 129/88 140/87 H Pulse Oximetry 99 95 98 Oxygen Delivery Method Room Air Room Air Room Air BMI result Body Mass Index 27.4 <SHANON Wu - Last Filed: 09/13/22 18:39> Vital Signs - 24 hr 09/13/22 18:36 09/13/22 18:59 09/14/22 00:32 Temperature 98.1 F 98.6 F Pulse Rate 76 74 62 Respiratory Rate 18 19 Blood Pressure 157/100 H 136/91 H 123/70 Pulse Oximetry 98 98 96 Oxygen Delivery Method Room Air Room Air Room Air 09/14/22 03:19 09/14/22 06:09 09/14/22 09:06 Temperature 98.9 F 98.5 F 97.6 F Pulse Rate 54 57 62 Respiratory Rate 19 17 16 Blood Pressure 119/78 129/88 140/87 H Pulse Oximetry 99 95 98 Oxygen Delivery Method Room Air Room Air Room Air BMI result Body Mass Index 27.4 VITAL SIGNS: Reviewed. GENERAL: Well developed, well nourished, in no acute distress. HEAD: Normocephalic/atraumatic EYES: PERRLA, EOMI LUNGS: Normal breath sounds. CARDIOVASCULAR: Regular rate and rhythm without noted murmurs ABDOMEN: Soft, non-tender, non-distended with bowel sounds. MUSCULOSKELETAL: No tenderness, deformities, or effusions noted on gross inspection. EXTREMITIES: No cyanosis, clubbing or edema. SKIN: Inspection of the skin reveals no rashes NEUROLOGIC: Alert and oriented x 3. Strength and sensation to light touch were grossly intact x 4. <Erma Velez MD - Last Filed: 09/13/22 23:06> Vital Signs - 24 hr 09/13/22 18:36 09/13/22 18:59 09/14/22 00:32 Temperature 98.1 F 98.6 F Pulse Rate 76 74 62 Respiratory Rate 18 19 Blood Pressure 157/100 H 136/91 H 123/70 Pulse Oximetry 98 98 96 Oxygen Delivery Method Room Air Room Air Room Air 09/14/22 03:19 09/14/22 06:09 09/14/22 09:06 Temperature 98.9 F 98.5 F 97.6 F Pulse Rate 54 57 62 Respiratory Rate 19 17 16 Blood Pressure 119/78 129/88 140/87 H Pulse Oximetry 99 95 98 Oxygen Delivery Method Room Air Room Air Room Air BMI result Body Mass Index 27.4 <Bryan Matthew MD - Last Filed: 09/14/22 09:54> Course Course Course Narrative: RME--42yo M w/pmhx anemia, substance abuse, presenting to the ED requesting detox from heroin, cocaine, and ETOH. Admits last use this morning. Reports ?History of withdrawal seizures in the past. 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 Patient ambulating with steady gait, no evidence of tremors, no tongue fasciculations EKG, Drug screen, ethanol, recovery consult ordered <SHANON Wu - Last Filed: 09/13/22 18:39> Medical Decision Making Medical Decision Making MDM Narrative: 42-year-old male who presents requesting detox, he last used this morning and is COVID testing is negative, urine tox is positive. Patient is hemodynamically stable. The care team saw the patient and is recommending manager of disaster recovery in the morning as they were unable to get him placed 10 night in a detox center and he typically states that is group home and is unable to return to the group home at this time. Patient placed on a CIWA. Patient placed in physician obsess Patient placed in physician observation because the patient needed more time for the manager of disaster recovery in the morning. At the time observation was started the patient's vital signs were stable, patient is alert and oriented, neuro: Nonfocal, CV RRR, lungs clear <Erma Velez MD - Last Filed: 09/13/22 23:06> 42-year-old male who presents requesting detox, he last used this morning and is COVID testing is negative, urine tox is positive. Patient is hemodynamically stable. The care team saw the patient and is recommending manager of disaster recovery in the morning as they were unable to get him placed 10 night in a detox center and he typically states that is group home and is unable to return to the group home at this time. Patient placed on a CIWA. Patient placed in physician obsess Patient placed in physician observation because the patient needed more time for the manager of disaster recovery in the morning. At the time observation was started the patient's vital signs were stable, patient is alert and oriented, neuro: Nonfocal, CV RRR, lungs clear 0952: End physician observation: The patient's methadone dose has verified, patient was ordered to get 70 mg orally. Patient has been evaluated by our care team and has been accepted into the detox program at [facility] therefore he will be discharged. <Bryan Matthew MD - Last Filed: 09/14/22 09:54> Lab Data Labs: Lab Results 09/13/22 09/13/22 09/13/22 Range/Units 19:18 19:18 20:41 Urine Opiates Screen POSITIVE H (Not Detect) Urine Fentanyl Screen POSITIVE H (Not Detect) Ur Barbiturates Screen Not Detected (Not Detect) Ur Phencyclidine Scrn Not Detected (Not Detect) Ur Amphetamines Screen Not Detected (Not Detect) U Benzodiazepines Scrn Not Detected (Not Detect) Urine Cocaine Screen POSITIVE H (Not Detect) U Marijuana (THC) Screen POSITIVE H (Not Detect) Ethyl Alcohol < 10 mg/dL COVID-19 (TRUNG) Negative (Negative) COVID-19 Clin Com See Note <SHANON Wu - Last Filed: 09/13/22 18:39> Lab Results 09/13/22 09/13/22 09/13/22 Range/Units 19:18 19:18 20:41 Urine Opiates Screen POSITIVE H (Not Detect) Urine Fentanyl Screen POSITIVE H (Not Detect) Ur Barbiturates Screen Not Detected (Not Detect) Ur Phencyclidine Scrn Not Detected (Not Detect) Ur Amphetamines Screen Not Detected (Not Detect) U Benzodiazepines Scrn Not Detected (Not Detect) Urine Cocaine Screen POSITIVE H (Not Detect) U Marijuana (THC) Screen POSITIVE H (Not Detect) Ethyl Alcohol < 10 mg/dL COVID-19 (TRUNG) Negative (Negative) COVID-19 Clin Com See Note <Erma Velez MD - Last Filed: 09/13/22 23:06> Lab Results 09/13/22 09/13/22 09/13/22 Range/Units 19:18 19:18 20:41 Urine Opiates Screen POSITIVE H (Not Detect) Urine Fentanyl Screen POSITIVE H (Not Detect) Ur Barbiturates Screen Not Detected (Not Detect) Ur Phencyclidine Scrn Not Detected (Not Detect) Ur Amphetamines Screen Not Detected (Not Detect) U Benzodiazepines Scrn Not Detected (Not Detect) Urine Cocaine Screen POSITIVE H (Not Detect) U Marijuana (THC) Screen POSITIVE H (Not Detect) Ethyl Alcohol < 10 mg/dL COVID-19 (TRUNG) Negative (Negative) COVID-19 Clin Com See Note <Bryan Matthew MD - Last Filed: 09/14/22 09:54> Discharge Plan Discharge Clinical Impression: Alcohol use disorder, Polysubstance use disorder <SHANON Wu - Last Filed: 09/13/22 18:39> Patient Disposition: Still a Patient <SHANON Wu - Last Filed: 09/13/22 18:39> Prescriptions: No Action risperidone [Risperdal] 2 mg tablet 1 tab PO BEDTIME sertraline [Zoloft] 50 mg tablet 1 tab PO DAILY prazosin 2 mg capsule 1 cap PO BEDTIME clonazepam 1 mg tablet 1 tab PO BID PRN (Reason: Anxiety) benztropine 1 mg tablet 1 tab PO BEDTIME methadone 10 mg Tablet 70 mg PO DAILY <SHANON Wu - Last Filed: 09/13/22 18:39> Interventions: [place]-Suicide Risk Severity Scale Last Done: 09/13/22 18:37 <SHANON Wu - Last Filed: 09/13/22 18:39>
--- NOTE | 2022-09-13 18:36 | ECG_ITS ---
Test Reason : clearance Blood Pressure : / mmHG Vent. Rate : 063 BPM Atrial Rate : 063 BPM P-R Int : 152 ms QRS Dur : 124 ms QT Int : 464 ms P-R-T Axes : 061 089 049 degrees QTc Int : 474 ms Normal sinus rhythm Cannot exclude old inferior or anteior infarcts, but can also be normal variants When compared with ECG of 26-MAY-2022 02:08, QRS duration has increased Minimal criteria for Anterior infarct are now Present Referred By: Kyra Kumari Electronically Signed By:LALO CRAMER
[2022-09-13 18:59] VITALS: BP 136/91; PULSE 74; O2SAT 98
[2022-09-13 19:47] LABS: Ethanol < 10 mg/dL
[2022-09-13 19:50] LABS: Amphetamine Screen Urine Not Detected (Not Detect); Barbiturates, Urine Not Detected (Not Detect); Benzodiazepines Screen Urine Not Detected (Not Detect); Cannabinoid Screen Urine POSITIVE (Not Detect); Cocaine Screen Urine POSITIVE (Not Detect); Fentanyl, urine POSITIVE (Not Detect); Opiate Screen Urine POSITIVE (Not Detect); Phencyclidine Screen Urine Not Detected (Not Detect)
--- NOTE | 2022-09-13 20:15 | PC.NURSE ---
patient a&ox3, urine obtained, labs obtained, ekg obtained, security called to put clothes in decon, pt looking for detox, will continue to monitor..
--- NOTE | 2022-09-13 20:48 | PC.NURSE ---
nasal swab sent
--- NOTE | 2022-09-13 21:02 | PC.NURSE ---
patient a&ox3, ciwa 2, vss, pt awaiting care team, precious vizcaino within reach, will continue to monitor
[2022-09-13 21:07] LABS: COVID-19 Test Negative (Negative); IDNOW Serial# 9DB6401D
--- NOTE | 2022-09-13 23:37 | MHC.CARE ---
Care Team met with Hang for a consult. Pt reported interest in detox and reported calling [facility] in [place] for beds but did not complete intake process. Pt is coming from [facility]. Pt will remain in ED and meet with recovery team in the AM.
--- NOTE | 2022-09-14 00:22 | PC.NURSE ---
Pt resting comfortably, pt given turkey sandwich.
[2022-09-14 00:32] VITALS: BP 123/70; PULSE 62; RESP 19; TEMP 37; O2SAT 96
--- NOTE | 2022-09-14 02:03 | PC.NURSE ---
Pt sleeping, respirations regular.
--- NOTE | 2022-09-14 02:54 | PC.NURSE ---
Pt sleeping respirations regular.
[2022-09-14 03:19] VITALS: BP 119/78; PULSE 54; RESP 19; TEMP 37.2; O2SAT 99
--- NOTE | 2022-09-14 04:16 | PC.NURSE ---
Pt sleeping at this time.
--- NOTE | 2022-09-14 04:52 | PC.NURSE ---
Pt sleeping, respirations regular.
[2022-09-14 06:09] VITALS: BP 129/88; PULSE 57; RESP 17; TEMP 36.9; O2SAT 95
--- NOTE | 2022-09-14 06:19 | PC.NURSE ---
Pt sleeping respirations regular.
--- NOTE | 2022-09-14 07:06 | PC.NURSE ---
assumed care of patient, pt aox3, calm and cooperative, resting comfortably in bed, VSS, CIWA 3
--- NOTE | 2022-09-14 08:07 | HE.PHANOTE ---
METHADONE FORM RECEIVED PATIENT TAKES 70 MG DAILY. LAST DOSE 09/12/22
[2022-09-14 09:06] VITALS: BP 140/87; PULSE 62; RESP 16; TEMP 36.4; O2SAT 98
--- NOTE | 2022-09-14 09:52 | MHC.RECOVRN ---
Pt has been accepted to [facility]. Will transport via [facility].
[2022-09-14] MEDS: methADONE HCl 20 MG/2 ML ORAL.CONC 70 MG PO (10:02)
== END 2022-09-14 10:17 | disposition home or self-care (01) ==
PROVIDERS: Physician Assistant; Student in an Organized Health Care Education/Training Program; Emergency Provider Emergency Medicine Emergency Medical Services; PCP Psychiatry & Neurology Psychiatry
DX: F19.10 Other psychoactive substance abuse, uncomplicated (principal); F10.10 Alcohol abuse, uncomplicated; Y90.0 Blood alcohol level of less than 20 mg/100 ml; Z20.822 Contact with and (suspected) exposure to COVID-19; F11.20 Opioid dependence, uncomplicated; F17.200 Nicotine dependence, unspecified, uncomplicated
CPT/HCPCS: 36415; 80307; 82077; 87635; 93005; 99284; 99285

== ENCOUNTER 2022-10-03 09:23 | Inpatient (IN) | payer OTHER, MEDICAID, SELFPAY ==
--- NOTE | 2022-10-03 | ECG_ITS ---
Test Reason : medical clearance Blood Pressure : / mmHG Vent. Rate : 060 BPM Atrial Rate : 060 BPM P-R Int : 154 ms QRS Dur : 108 ms QT Int : 468 ms P-R-T Axes : 057 063 090 degrees QTc Int : 468 ms Normal sinus rhythm Normal ECG When compared with ECG of 13-SEP-2022 19:03, Inverted T waves have replaced nonspecific T wave abnormality in Lateral leads Referred By: Gael Quintana Electronically Signed By:LALO CRAMER
[2022-10-03 09:29] VITALS: BP 110/68; PULSE 65; RESP 16; TEMP 36.2; O2SAT 97; BMI 28.1
[2022-10-03 09:54] VITALS: BP 117/79; PULSE 62; RESP 16; TEMP 36.3
--- NOTE | 2022-10-03 09:56 | PC.NURSE ---
42 y/o M pw suicidal ideation w/ plan to cut wrists. pt is aox3, calm and cooperative, VSS at this time. pt has hx of drug use, last used cocain/heroine yesterday. gets methadone from [facility]. pt undressed, belongings secured, labs drawn and sent, covid sent, urine sent. awaiting MD thopmson
--- NOTE | 2022-10-03 10:01 | ED.PSYCH ---
HPI - Psych General Chief Complaint: Psychiatric Symptoms Stated Complaint: Crisis Time Seen by Provider: 10/03/22 09:48 Source: patient Mode of arrival: ambulatory Limitations: no limitations History of Present Illness HPI Narrative: Recently relapsed on cocaine and heroine with SI and a plan to cut his wrist. The voices are telling him to kill himself complaint: suicidal ideation and feels depressed Onset (ago): week(s) Duration: constant History of same: Yes Context: recent drug abuse Associated psychiatric symptoms: suicidal ideation and auditory hallucinations If self harm: admits thoughts of self harm Related Data Home Medications Medication Instructions Recorded Confirmed benztropine 1 mg tablet 1 tab PO BEDTIME 10/05/21 10/03/22 clonazepam 1 mg tablet 1 tab PO BID PRN Anxiety 10/05/21 10/03/22 prazosin 2 mg capsule 1 cap PO BEDTIME 10/05/21 10/03/22 risperidone 2 mg tablet (Risperdal) 1 tab PO BEDTIME 10/05/21 10/03/22 sertraline 50 mg tablet (Zoloft) 1 tab PO DAILY depressive disorder 10/05/21 10/03/22 methadone 10 mg tablet 70 mg PO DAILY 08/21/22 10/03/22 Allergies Allergy/AdvReac Type Severity Reaction Status Date / Time haloperidol [From Haldol] AdvReac Unknown Verified 10/03/22 09:29 Review of Systems Review of Systems: Yes all other systems are reviewed and are negative Neurologic: Denies Sensory deficit (Neuro) Psychiatric: Psychiatric: Reports no additional psychiatric complaints PMFSH Past Medical History Medical History Anemia Substance abuse Social History Social History Alcohol intake: current Alcohol intake frequency: 3 or more drinks per day Alcohol type: hard liquor Patient Tobacco Use Status: Current everyday Tobacco user Use of substances other than those prescribed or required for medical reasons: Yes Substance Use Type: Crack/Cocaine, Heroin and Opiates Advance Directives: No Advance Directives Information Provided: Yes Physical Exam Vital Signs: Vital Signs: Last Vital Signs Temp 97.4 F 10/03/22 09:54 Pulse 62 10/03/22 09:54 Resp 16 10/03/22 09:54 BP 117/79 10/03/22 09:54 Pulse Ox 97 10/03/22 09:29 O2 Del Method 10/03/22 09:54 O2 Flow Rate 98 10/03/22 09:54 BMI result Body Mass Index 28.1 Const: Other: unkept Nutritional Appearance: average body habitus Orientation/consciousness: oriented to person and patient oriented x3 Limitations: no limitations HEENT: Head: Yes normal to inspection Ears: external ears normal General nose exam: Normal external nose present Mouth: Normal oral and palatal mucosa present and oropharynx normal Throat: Yes posterior oropharynx normal Eyes: General: appearance normal, both eyes and all related structures Neck: Other: supple Neck: Yes normal visual inspection Chest: Chest palpation & inspection: normal inspection of the chest Resp: Auscultation: clear to auscultation bilaterally Cardio: Jugular venous distension: no JVD Rate: regular rate Rhythm: regular rhythm Heart sounds: S1 normal heart sound present and S2 normal heart sound present GI: Inspection: Yes normal to inspection Palpation (GI): Soft to palpation, nontender and No hepatosplenomegaly present Auscultation: normal bowel sounds : General: Yes no CVA tenderness Back/Spine/Pelvis: Back: no CVA tenderness Skin: General skin exam: no rashes or lesions noted Neuro: General: oriented to person and patient oriented x3 Cranial nerves: Yes CN's II-XII intact bilaterally Motor exam (neuro): 5/5 motor strength present throughout Sensory Exam: No Sensory deficit (Neuro) Extrem: General: Yes normal to inspection Psych: Other: flat affect Appearance: disheveled Course Reevaluation(s) Reevaluation #1: Patient placed in physician observation at 4:30pm The indication for observation is that the patient needs more time to see if his depression improves or he will need to be admitted. At this time the patient is well developed well nourished, lungs clear, CV RRR, abd nontender, neuro is intact. He is suicidal with a plan and liklihood of discharge is minimal Time: 17:15 Medications Administered Discontinued Medications Generic Name Dose Route Start Last Admin Trade Name Freq PRN Reason Stop Dose Admin Methadone HCl 70 mg 10/03/22 10:44 10/03/22 11:32 Methadone Hcl 20 Mg/2 Ml Oral.Conc PO 10/03/22 10:45 70 mg ONCE ONE Administration Medical Decision Making Differential Diagnosis major depression, suicidal ideation, drug abuse were all considered in the final dispositioon Admission/Observation Consideration of admission/observation: Escalation of care including admission/observation considered givien his risk factors and plan admission is considered Consult Healthcare Provider Management of the patient was discussed with: Behavioral Health Provider Lab Data MDM Lab Attestation statement: I reviewed the patient's lab results. patient has had chronic elevation of his LFTs for years 10/03/22 10:24 10/03/22 10:24 Labs: Lab Results 10/03/22 10/03/22 10/03/22 Range/Units 10:16 10:24 10:24 WBC 6.8 (4.8-10.8) X10*3/uL RBC 4.51 L (4.60-5.80) X10*6/uL Hgb 13.0 L (14.0-18.0) g/dl Hct 37.8 L (42.0-52.0) % MCV 83.8 (80.0-98.0) fL MCH 28.8 (27.0-33.0) pg MCHC 34.4 (31.0-36.0) g/dl RDW 13.3 (11.0-16.0) % Plt Count 225 (160-400) X10*3/uL MPV 9.1 L (9.4-12.4) fL Immature Gran % (Auto) 0.3 (0.0-0.4) % Neut % (Auto) 57.3 (45-73) % Lymph % (Auto) 29.8 (20-40) % [place] % (Auto) 8.7 (2-11) % Eos % (Auto) 3.5 (0-4) % Baso % (Auto) 0.4 (0-2) % Lymph # (Auto) 2.0 (1.2-4.9) X10*3/uL [place] # (Auto) 0.6 (0.1-1.2) X10*3/uL Eos # (Auto) 0.2 (0.0-0.4) X10*3/uL Baso # (Auto) 0.0 (0.0-0.2) X10*3/uL Abs Immat Gran (auto) 0.02 (0.00-0.03) X10*3/uL Absolute Neuts (auto) 3.9 (2.0-8.3) x10*3/uL Absolute Nucleated RBC 0.000 (0.0-0.012) X10*3/uL Nucleated RBC % (auto) 0.0 (0.0-0.2) /100WBC Sodium 143 (135-145) mmol/L Potassium 4.5 (3.3-5.1) mmol/L Chloride 104 (96-108) mmol/L Carbon Dioxide 28 (22-29) mmol/L Anion Gap 16 (12-20) BUN 15 (9-16) mg/dL Creatinine 0.80 (0.5-1.4) mg/dL Estim Creat Clear Calc 124.2 Estimated GFR > 60 Fasting Glucose 128 H (60-99) mg/dL Calcium 9.4 (8.4-10.2) mg/dL Total Bilirubin 0.5 (0.0-1.0) mg/dL AST 95 H (5-37) U/L ALT 145 H (0-40) U/L Alkaline Phosphatase 118 H (39-117) U/L Total Protein 7.0 (6.5-8.0) g/dL Albumin 3.8 (3.5-5.0) g/dL Urine Opiates Screen (Not Detect) Urine Fentanyl Screen (Not Detect) Ur Barbiturates Screen (Not Detect) Ur Phencyclidine Scrn (Not Detect) Ur Amphetamines Screen (Not Detect) U Benzodiazepines Scrn (Not Detect) Urine Cocaine Screen (Not Detect) U Marijuana (THC) Screen (Not Detect) Ethyl Alcohol mg/dL COVID-19 (TRUNG) Negative (Negative) COVID-19 Clin Com See Note 10/03/22 10/03/22 Range/Units 10:24 15:38 WBC (4.8-10.8) X10*3/uL RBC (4.60-5.80) X10*6/uL Hgb (14.0-18.0) g/dl Hct (42.0-52.0) % MCV (80.0-98.0) fL MCH (27.0-33.0) pg MCHC (31.0-36.0) g/dl RDW (11.0-16.0) % Plt Count (160-400) X10*3/uL MPV (9.4-12.4) fL Immature Gran % (Auto) (0.0-0.4) % Neut % (Auto) (45-73) % Lymph % (Auto) (20-40) % [place] % (Auto) (2-11) % Eos % (Auto) (0-4) % Baso % (Auto) (0-2) % Lymph # (Auto) (1.2-4.9) X10*3/uL [place] # (Auto) (0.1-1.2) X10*3/uL Eos # (Auto) (0.0-0.4) X10*3/uL Baso # (Auto) (0.0-0.2) X10*3/uL Abs Immat Gran (auto) (0.00-0.03) X10*3/uL Absolute Neuts (auto) (2.0-8.3) x10*3/uL Absolute Nucleated RBC (0.0-0.012) X10*3/uL Nucleated RBC % (auto) (0.0-0.2) /100WBC Sodium (135-145) mmol/L Potassium (3.3-5.1) mmol/L Chloride (96-108) mmol/L Carbon Dioxide (22-29) mmol/L Anion Gap (12-20) BUN (9-16) mg/dL Creatinine (0.5-1.4) mg/dL Estim Creat Clear Calc Estimated GFR Fasting Glucose (60-99) mg/dL Calcium (8.4-10.2) mg/dL Total Bilirubin (0.0-1.0) mg/dL AST (5-37) U/L ALT (0-40) U/L Alkaline Phosphatase (39-117) U/L Total Protein (6.5-8.0) g/dL Albumin (3.5-5.0) g/dL Urine Opiates Screen POSITIVE H (Not Detect) Urine Fentanyl Screen POSITIVE H (Not Detect) Ur Barbiturates Screen Not Detected (Not Detect) Ur Phencyclidine Scrn Not Detected (Not Detect) Ur Amphetamines Screen Not Detected (Not Detect) U Benzodiazepines Scrn POSITIVE H (Not Detect) Urine Cocaine Screen POSITIVE H (Not Detect) U Marijuana (THC) Screen POSITIVE H (Not Detect) Ethyl Alcohol < 10 mg/dL COVID-19 (TRUNG) (Negative) COVID-19 Clin Com Independent Interpretation I performed an independent interpretation of an: EKG Interpretation: sinus 60, jpoint elevation diffusely with isolated flip t in AVL Social Determinants Patient?s care significantly limited by Social Determinants of Health including: Inadequate housing and Alcoholism and drug addiction in family Discharge Plan Discharge Clinical Impression: Suicidal ideation, Depression Patient Disposition: Still a Patient Prescriptions: No Action risperidone [Risperdal] 2 mg tablet 1 tab PO BEDTIME sertraline [Zoloft] 50 mg tablet 1 tab PO DAILY prazosin 2 mg capsule 1 cap PO BEDTIME clonazepam 1 mg tablet 1 tab PO BID PRN (Reason: Anxiety) benztropine 1 mg tablet 1 tab PO BEDTIME methadone 10 mg Tablet 70 mg PO DAILY Interventions: [place]-Suicide Risk Severity Scale Last Done: 10/03/22 09:54
[2022-10-03 10:29] LABS: MANUAL DIFF FLAG NO
[2022-10-03 10:33] LABS: Basophils Percent Auto 0.4 % (0-2); Eosinophils Absolute Auto 0.2 X10*3/uL (0.0-0.4); Eosinophils Percent Auto 3.5 % (0-4); Hematocrit 37.8 % (42.0-52.0); Imm Gran Abs Auto 0.02 X10*3/uL (0.00-0.03); Imm Gran Pct Auto 0.3 % (0.0-0.4); Lymphocytes Percent Auto 29.8 % (20-40); Mean Corpuscular HGB Conc 34.4 g/dl (31.0-36.0); Mean Corpuscular Hemoglobin 28.8 pg (27.0-33.0); Mean Corpuscular Volume 83.8 fL (80.0-98.0); Mean Platelet Volume 9.1 fL (9.4-12.4); Monocytes Absolute Auto 0.6 X10*3/uL (0.1-1.2); Monocytes Percent Auto 8.7 % (2-11); Neutrophils Absolute Auto 3.9 x10*3/uL (2.0-8.3); Neutrophils Percent Auto 57.3 % (45-73); Platelet Count 225 X10*3/uL (160-400); Red Blood Count 4.51 X10*6/uL (4.60-5.80); Red Cell Distribution Width 13.3 % (11.0-16.0); White Blood Count 6.8 X10*3/uL (4.8-10.8)
[2022-10-03 10:51] LABS: COVID-19 Test Negative (Negative); IDNOW Serial# 16C4AD1C
[2022-10-03 10:51] LABS: Alanine Aminotransferase 145 U/L (0-40); Albumin Level 3.8 g/dL (3.5-5.0); Alkaline Phosphatase 118 U/L (39-117); Anion Gap 16 (12-20); Aspartate Amino Transferase 95 U/L (5-37); Bilirubin Total 0.5 mg/dL (0.0-1.0); Blood Urea Nitrogen 15 mg/dL (9-16); Calcium 9.4 mg/dL (8.4-10.2); Carbon Dioxide 28 mmol/L (22-29); Chloride 104 mmol/L (96-108); Creatinine Clr Calc Pharmacy 124.2; Estimated Glomerular Filt Rate > 60; Glucose Fasting 128 mg/dL (60-99); Potassium 4.5 mmol/L (3.3-5.1); Sodium 143 mmol/L (135-145)
--- NOTE | 2022-10-03 11:02 | HE.PHANOTE ---
METHADONE CONFIRMATION FORM RECEIVED FOR 70MG DAILY
[2022-10-03] MEDS: methADONE HCl 20 MG/2 ML ORAL.CONC 70 MG PO (11:32)
[2022-10-03 12:11] LABS: Ethanol < 10 mg/dL
[2022-10-03 16:05] LABS: Amphetamine Screen Urine Not Detected (Not Detect); Barbiturates, Urine Not Detected (Not Detect); Benzodiazepines Screen Urine POSITIVE (Not Detect); Cannabinoid Screen Urine POSITIVE (Not Detect); Cocaine Screen Urine POSITIVE (Not Detect); Fentanyl, urine POSITIVE (Not Detect); Opiate Screen Urine POSITIVE (Not Detect); Phencyclidine Screen Urine Not Detected (Not Detect)
[2022-10-03 21:06] VITALS: BP 113/87; PULSE 72; RESP 16; TEMP 37; O2SAT 95
[2022-10-04 00:41] VITALS: BP 127/86; PULSE 62; RESP 17; TEMP 36.9; O2SAT 96
[2022-10-04] MEDS: Acetaminophen 325 MG TABLET 975 MG PO (03:10)
[2022-10-04 05:41] VITALS: BP 121/76; PULSE 71; RESP 18; TEMP 36.7; O2SAT 96
--- NOTE | 2022-10-04 06:02 | PC.NURSE ---
Patient slept through the night, no distress observed/reported, behavior appropriate and non concerning, disposition per care team is section 12 inpatient bed search, medication compliant, VSS, will continue to monitor.
[2022-10-04 07:26] VITALS: BP 148/84; PULSE 76; RESP 19; TEMP 37; O2SAT 96
[2022-10-04] MEDS: Sertraline HCL 50 MG TABLET PO (08:00)
[2022-10-04] MEDS: methADONE HCl 20 MG/2 ML ORAL.CONC 70 MG PO (08:01)
--- NOTE | 2022-10-04 08:04 | PC.NURSE ---
Patient resting comfortably no ditress noted ambulatory with steady gait. Will CTM
[2022-10-04 18:00] VITALS: BP 119/68; PULSE 67; RESP 16; TEMP 35.9; O2SAT 97
[2022-10-04 19:01] VITALS: BMI 29.3
[2022-10-04] MEDS: Benztropine Mesylate 1 MG TABLET PO (21:30)
[2022-10-04] MEDS: risperiDONE 2 MG TABLET PO (21:30)
[2022-10-04] MEDS: Prazosin HCL 1 MG CAPSULE 2 MG PO (21:30)
--- NOTE | 2022-10-04 22:58 | PC.ADMIT ---
Pt is a 42 year old male admitted on CV for SI with a plan to cut his wrist or OD meds. Pt is alert and oriented, VSS, covid negative, tox screen positive for cocaine, opiate, fentanyl, benzos and THC. Pt is currently on methadone 70mg daily. Pt reports relapse after detox for some time. Pt is homeless and reports being hopeless. Speech is regular with normal rhythm, tone and britt. impulse and judgment is poor. Pt reports current providers through [facility] and [facility]. Pt is known to this facility for multiple [facility] admissions. admission orders obtained, CIWA and COWS orders given.
[2022-10-05] MEDS: methADONE HCl 20 MG/2 ML ORAL.CONC 70 MG PO (07:49)
[2022-10-05] MEDS: Sertraline HCL 50 MG TABLET PO (07:49)
[2022-10-05 07:54] VITALS: BP 129/82; PULSE 65; RESP 16; TEMP 36.9; O2SAT 95
[2022-10-05 07:56] VITALS: PULSE 65
[2022-10-05 08:43] LABS: Alanine Aminotransferase 123 U/L (0-40); Albumin Level 3.8 g/dL (3.5-5.0); Alkaline Phosphatase 120 U/L (39-117); Anion Gap 11 (12-20); Aspartate Amino Transferase 64 U/L (5-37); Bilirubin Total 0.5 mg/dL (0.0-1.0); Blood Urea Nitrogen 10 mg/dL (9-16); Calcium 9.3 mg/dL (8.4-10.2); Carbon Dioxide 33 mmol/L (22-29); Chloride 102 mmol/L (96-108); Cholesterol 179 mg/dL; Creatinine Clr Calc Pharmacy 116.4; Estimated Glomerular Filt Rate > 60; Glucose Fasting 95 mg/dL (60-99); HDL Cholesterol 58 mg/dL; LDL Cholesterol Calculated 103 mg/dl; Potassium 4.9 mmol/L (3.3-5.1); Sodium 141 mmol/L (135-145); Total Protein 7.2 g/dL (6.5-8.0); Triglycerides 91 mg/dL
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
[2022-10-05] MEDS: Acetaminophen 325 MG TABLET 650 MG PO (11:27)
[2022-10-05] MEDS: Sertraline HCL 25 MG TABLET PO (16:01)
[2022-10-05] MEDS: clonazePAM 1 MG TABLET PO (16:02)
[2022-10-05] MEDS: Nicotine Polacrilex 2 MG GUM BUCCAL (16:02)
[2022-10-05] MEDS: Gabapentin 300 MG CAPSULE PO ×2 (16:02→20:33)
[2022-10-05 18:00] VITALS: BP 130/82; PULSE 56; RESP 18; TEMP 37.8; O2SAT 97
[2022-10-05] MEDS: Prazosin HCL 1 MG CAPSULE 2 MG PO (20:33)
[2022-10-05] MEDS: Benztropine Mesylate 1 MG TABLET PO (20:33)
[2022-10-05] MEDS: traZODone HCL 50 MG TABLET PO (20:34)
[2022-10-05] MEDS: LORazepam 1 MG TABLET 2 MG PO (20:34)
[2022-10-05] MEDS: Nicotine Polacrilex 2 MG GUM 4 MG BUCCAL (20:34)
[2022-10-05] MEDS: risperiDONE 2 MG TABLET PO (20:34)
[2022-10-06 07:00] VITALS: BMI 29.2
[2022-10-06] MEDS: Gabapentin 300 MG CAPSULE PO ×3 (08:40→20:25)
[2022-10-06] MEDS: clonazePAM 1 MG TABLET PO ×2 (08:40→13:58)
[2022-10-06] MEDS: methADONE HCl 20 MG/2 ML ORAL.CONC 70 MG PO (08:41)
[2022-10-06] MEDS: Sertraline HCL 25 MG TABLET 75 MG PO (08:41)
[2022-10-06 09:28] VITALS: BP 129/75; PULSE 91; RESP 16; TEMP 37.1; O2SAT 96
--- NOTE | 2022-10-06 09:41 | P.PNPSI_ITS ---
Subjective Subjective Date of Service: 10/06/22 Reason For Visit: Suicidal ideation Interim History: met w/ patient; discussed in teams; discussed further w/ nursing regarding CIWA and if continues to have low scores, will dc CIWA pt reports feeling a little better; no AVH. SI lessening. Nightmares continue. Would like increase in Methadone to help w/ cravings. Also agrees to increase in Zoloft to better help w/ PTSD. Diagnostics Vital Signs (24Hr): Vital Signs - 24 hr 10/05/22 18:00 10/06/22 09:28 Temperature 100.1 F 98.7 F Pulse Rate 56 91 Respiratory Rate 18 16 Blood Pressure 130/82 129/75 Pulse Oximetry 97 96 Oxygen Delivery Method Room Air Room Air BMI result Body Mass Index 29.3 Labs 10/03/22 10:24 10/05/22 08:19 Labs: Laboratory Results - last 48 hr 10/05/22 08:19 Sodium 141 Potassium 4.9 Chloride 102 Carbon Dioxide 33 H Anion Gap 11 L BUN 10 Creatinine 0.87 Estim Creat Clear Calc 116.4 Estimated GFR > 60 Fasting Glucose 95 Calcium 9.3 Total Bilirubin 0.5 AST 64 H ALT 123 H Alkaline Phosphatase 120 H Total Protein 7.2 Albumin 3.8 Triglycerides 91 Cholesterol 179 LDL Cholesterol, Calc 103 HDL Cholesterol 58 Medications Medications Current Medications Acetaminophen (Acetaminophen 325 Mg Tablet) 650 mg PO Q6H PRN PRN Reason: Headache/Pain Mild Scale (1-3) Last Admin: 10/05/22 11:27 Dose: 650 mg Al Hydroxide/Mg Hydroxide (Magnesium Hydrox/Alum Hydrox 30 Ml Oral.Susp) 30 ml PO Q6H PRN PRN Reason: Heartburn/Nausea Benztropine Mesylate (Benztropine Mesylate 1 Mg Tablet) 1 mg PO BEDTIME [facility] Last Admin: 10/05/22 20:33 Dose: 1 mg Clonazepam (Clonazepam 1 Mg Tablet) 1 mg PO BID@0900,1400 [facility] Last Admin: 10/06/22 08:40 Dose: 1 mg Gabapentin (Gabapentin 300 Mg Capsule) 300 mg PO TID [facility] Stop: 10/06/22 23:50 Last Admin: 10/06/22 08:40 Dose: 300 mg Gabapentin (Gabapentin 300 Mg Capsule) 300 mg PO BID [facility] Stop: 10/08/22 23:50 Hydroxyzine HCl (Hydroxyzine Hcl 25 Mg Tablet) 25 mg PO Q6H PRN PRN Reason: Anxiety Lorazepam (Lorazepam 1 Mg Tablet) 1 mg PO Q2H PRN PRN Reason: CIWA 6-10 Lorazepam (Lorazepam 1 Mg Tablet) 2 mg PO Q2H PRN PRN Reason: CIWA 11 and above Last Admin: 10/05/22 20:34 Dose: 2 mg Magnesium Hydroxide (Milk Of Magnesia 30 Ml Oral.Susp) 30 ml PO DAILY PRN PRN Reason: Constipation Methadone HCl (Methadone Hcl 20 Mg/2 Ml Oral.Conc) 70 mg PO DAILY [facility] Last Admin: 10/06/22 08:41 Dose: 70 mg Nicotine Polacrilex (Nicotine Polacrilex 2 Mg Gum) 4 mg BUCCAL Q2H PRN PRN Reason: Nicotine Cravings Last Admin: 10/05/22 20:34 Dose: 4 mg Pharmacy Consult (Consult Rx Perform Med Rec) 1 each MISCELLANE ONCE PRN PRN Reason: Consult order Prazosin HCl (Prazosin Hcl 1 Mg Capsule) 2 mg PO BEDTIME [facility]; Protocol Last Admin: 10/05/22 20:33 Dose: 2 mg Risperidone (Risperidone 2 Mg Tablet) 2 mg PO BEDTIME [facility] Last Admin: 10/05/22 20:34 Dose: 2 mg Sertraline HCl (Sertraline Hcl 25 Mg Tablet) 75 mg PO DAILY [facility] Last Admin: 10/06/22 08:41 Dose: 75 mg Trazodone HCl (Trazodone Hcl 50 Mg Tablet) 50 mg PO BEDTIME PRN PRN Reason: Insomnia Last Admin: 10/05/22 20:34 Dose: 50 mg Allergies Allergies Allergy/AdvReac Type Severity Reaction Status Date / Time haloperidol [From Haldol] AdvReac Unknown Verified 10/03/22 09:29 Assessment & Plan Assessment & Plan (1) Schizoaffective disorder, depressive type: Status: Acute Code(s): F25.1 - Schizoaffective disorder, depressive type (2) PTSD (post-traumatic stress disorder): Status: Acute Code(s): F43.10 - Post-traumatic stress disorder, unspecified (3) Opioid use disorder: Status: Acute Code(s): F11.90 - Opioid use, unspecified, uncomplicated (4) Cocaine use disorder: Status: Acute Code(s): F14.10 - Cocaine abuse, uncomplicated (5) Alcohol use disorder: Status: Acute Code(s): F19.90 - Other psychoactive substance use, unspecified, uncomplicated (6) Hepatitis C: Status: Acute Code(s): B19.20 - Unspecified viral hepatitis C without hepatic coma Plan patient is a 42-year-old male with history of PTSD, psychotic symptoms, hep C and substance abuse, on methadone, who presents for worsening depression following the of his mother 2 months ago. Patient reports that he actively abuses substances and he has been homeless for at least 10 years, mostly sleeping outside. -Patient is provisionally diagnosed with schizoaffective disorder, since he has depressive symptoms and intermittent AH that are independent of mood; will leave as provisional since both chronic daily substance abuse and PTSD can be confounding etiologies -admit for safety and medication management; discussed medication regimen and risks/side effects and patient agrees to increase Zoloft which is at a subtherapeutic dose. Will 1st see if this can be helpful for mood and possibly lowering AH before increasing Risperdal. Discussed possibly increasing methadone to help with opioid abuse. -patient withdrawing from alcohol; will start CIWA and gabapentin with taper 10/06 some improved mood; SI abating; No AVH today. Will continue to titrate Zoloft to 100mg; will hold off increasing Risperdal at this time since no AVH; will monitor. Pt asks for increased methadone for cravings. etoh w/drawal abating; likely dc [facility] Hospital course 10/06 Plan: CV Q 15 minute checks LFTs mildly elevated and seem to be trending towards normal; however will get repeat labs to monitor CIWA Ativan 1 mg/2 mg p.r.n. following [facility] protocol Gabapentin 300 mg t.i.d. with taper [employer] Zoloft to 100 mg (patient has been at 50 mg for years) Continue Risperdal 2 mg q.h.s.; will consider increasing Continue prazosin 2 mg q.h.s. Continue Cogentin 1 mg q.h.s.; discussed this with patient with thinks he may have had some muscle tightening in his body at 1 point. INCREASE to methadone 75 mg; will titrate to 80mg Patient educated on: diagnosis, medication risk/benefits and substance abuse Informed Consent: understands Reason for contiued inpatient stay Substantial Risk for: rapid decompensation Time Spent With Patient Time: Total time managing care of this patient today ____ minutes.
[2022-10-06 09:48] VITALS: PULSE 91
[2022-10-06] MEDS: Nicotine Polacrilex 2 MG GUM 4 MG BUCCAL ×4 (10:33→20:30)
[2022-10-06] MEDS: methADONE HCl 20 MG/2 ML ORAL.CONC 5 MG PO (12:09)
[2022-10-06 16:30] VITALS: BP 97/60; PULSE 71; TEMP 36.5
[2022-10-06] MEDS: LORazepam 1 MG TABLET 2 MG PO (18:07)
[2022-10-06] MEDS: Benztropine Mesylate 1 MG TABLET PO (20:24)
[2022-10-06] MEDS: Prazosin HCL 1 MG CAPSULE 2 MG PO (20:25)
[2022-10-06] MEDS: risperiDONE 2 MG TABLET PO (20:25)
[2022-10-07] MEDS: Gabapentin 300 MG CAPSULE PO (08:10)
[2022-10-07] MEDS: clonazePAM 1 MG TABLET PO ×2 (08:10→13:47)
[2022-10-07] MEDS: methADONE HCl 20 MG/2 ML ORAL.CONC 75 MG PO (08:11)
[2022-10-07] MEDS: Sertraline HCL 25 MG TABLET 75 MG PO (08:14)
[2022-10-07] MEDS: Nicotine Polacrilex 2 MG GUM 4 MG BUCCAL (08:35)
[2022-10-07 08:37] VITALS: BP 129/91; PULSE 78; RESP 16; TEMP 36.7; O2SAT 97
[2022-10-07 09:09] LABS: Alanine Aminotransferase 128 U/L (0-40); Alkaline Phosphatase 114 U/L (39-117); Aspartate Amino Transferase 67 U/L (5-37); Bilirubin Direct < 0.2 mg/dL (0.0-0.5); Bilirubin Total 0.3 mg/dL (0.0-1.0); Total Protein 7.6 g/dL (6.5-8.0)
--- NOTE | 2022-10-07 11:33 | P.PNPSI_ITS ---
Subjective Subjective Date of Service: 10/07/22 Reason For Visit: Suicidal ideation Interim History: Met w pt; discussed in team; discussed w/ OT therapist who reports axis II behaviors in group pt reports doing better, mood is better; no sI, no AVH. Says got irritated at peer on unit, but was overall able to remain in control. Says has trouble sleeping and in the past took Serqouel; he says trazodone does not work well and causes him to gain wt. Manufacturing Electrician explained increase risk of side-effects being on 2 antipsychotics, including increased risk of permanent TD; pt expressed understa nding and said he'll keep an eye out for symptoms, but has been on both before and that sleep is worth risk. Pt said he has a friend house he can stay at and would like discharge. Pt has appointment next week for placement at a group home program and will stay at his friends until then. Pt also says he has adequate supply of meds with him and does not need refills. discussed w/ team who agrees pt is safe for discharge; given some of his challenging behaviors on the unit (such as stealing bingo prizes; disruptive in group, irritating others) team agrees it's preferable. Mental Status Exam Mental Status Exam Narrative: Pt is alert and oriented; behavior is cooperative, friendly and calm; patient is not in distress; dressed in casual attire with unkempt hair but adequate hygiene ; mood is described as better and affect congruent; eye contact appropriate; Speech is normal rate, volume and prosody and not pressured; some psychomotor retardation present; thought process is organized and goal directed; Thought content is on tx; otherwise pertinent to relevant topics and without any delusional content, paranoid ideations or grandiosity; passive SI; no HI. Intermittent AH Patients insight and judgment appear intact. Diagnostics Vital Signs (24Hr): Vital Signs - 24 hr 10/06/22 16:30 10/07/22 08:37 Temperature 97.7 F 98.1 F Pulse Rate 71 78 Respiratory Rate 16 Blood Pressure 97/60 129/91 H Pulse Oximetry 97 Oxygen Delivery Method Room Air BMI result Body Mass Index 29.2 Labs 10/03/22 10:24 10/05/22 08:19 Labs: Laboratory Results - last 48 hr 10/07/22 08:43 Total Bilirubin 0.3 Direct Bilirubin < 0.2 AST 67 H ALT 128 H Alkaline Phosphatase 114 Total Protein 7.6 Albumin 4.0 Medications Medications Current Medications Acetaminophen (Acetaminophen 325 Mg Tablet) 650 mg PO Q6H PRN PRN Reason: Headache/Pain Mild Scale (1-3) Last Admin: 10/05/22 11:27 Dose: 650 mg Al Hydroxide/Mg Hydroxide (Magnesium Hydrox/Alum Hydrox 30 Ml Oral.Susp) 30 ml PO Q6H PRN PRN Reason: Heartburn/Nausea Benztropine Mesylate (Benztropine Mesylate 1 Mg Tablet) 1 mg PO BEDTIME [facility] Last Admin: 10/06/22 20:24 Dose: 1 mg Clonazepam (Clonazepam 1 Mg Tablet) 1 mg PO BID@0900,1400 [facility] Last Admin: 10/07/22 08:10 Dose: 1 mg Gabapentin (Gabapentin 300 Mg Capsule) 300 mg PO BID [facility] Stop: 10/08/22 23:50 Last Admin: 10/07/22 08:10 Dose: 300 mg Gabapentin (Gabapentin 300 Mg Capsule) 300 mg PO DAILY [facility] Stop: 10/10/22 23:20 Hydroxyzine HCl (Hydroxyzine Hcl 25 Mg Tablet) 25 mg PO Q6H PRN PRN Reason: Anxiety Magnesium Hydroxide (Milk Of Magnesia 30 Ml Oral.Susp) 30 ml PO DAILY PRN PRN Reason: Constipation Methadone HCl (Methadone Hcl 20 Mg/2 Ml Oral.Conc) 80 mg PO DAILY [facility] Mirtazapine (Mirtazapine 7.5 Mg Tablet) 7.5 mg PO BEDTIME [facility] Nicotine Polacrilex (Nicotine Polacrilex 2 Mg Gum) 4 mg BUCCAL Q2H PRN PRN Reason: Nicotine Cravings Last Admin: 10/07/22 08:35 Dose: 4 mg Pharmacy Consult (Consult Rx Perform Med Rec) 1 each MISCELLANE ONCE PRN PRN Reason: Consult order Prazosin HCl (Prazosin Hcl 1 Mg Capsule) 2 mg PO BEDTIME [facility]; Protocol Last Admin: 10/06/22 20:25 Dose: 2 mg Quetiapine Fumarate (Quetiapine Fumarate 50 Mg Tablet) 50 mg PO BEDTIME [facility] Risperidone (Risperidone 2 Mg Tablet) 2 mg PO BEDTIME [facility] Last Admin: 10/06/22 20:25 Dose: 2 mg Sertraline HCl (Sertraline Hcl 100 Mg Tablet) 100 mg PO DAILY [facility] Allergies Allergies Allergy/AdvReac Type Severity Reaction Status Date / Time haloperidol [From Haldol] AdvReac Unknown Verified 10/03/22 09:29 Assessment & Plan Assessment & Plan (1) Schizoaffective disorder, depressive type: Status: Acute Code(s): F25.1 - Schizoaffective disorder, depressive type (2) PTSD (post-traumatic stress disorder): Status: Acute Code(s): F43.10 - Post-traumatic stress disorder, unspecified (3) Opioid use disorder: Status: Acute Code(s): F11.90 - Opioid use, unspecified, uncomplicated (4) Cocaine use disorder: Status: Acute Code(s): F14.10 - Cocaine abuse, uncomplicated (5) Alcohol use disorder: Status: Acute Code(s): F19.90 - Other psychoactive substance use, unspecified, uncomplicated (6) Hepatitis C: Status: Acute Code(s): B19.20 - Unspecified viral hepatitis C without hepatic coma Plan HPI: patient is a 42-year-old male with history of PTSD, psychotic symptoms, hep C and substance abuse, on methadone, who presents for worsening depression following the of his mother 2 months ago. Patient reports that he actively abuses substances and he has been homeless for at least 10 years, mo stly sleeping outside. -Patient is provisionally diagnosed with schizoaffective disorder, since he has depressive symptoms and intermittent AH that are independent of mood; will leave as provisional since both chronic daily substance abuse and PTSD can be confounding etiologies Hospital course: -patient withdrawing from alcohol; will start CIWA and gabapentin with taper discussed medication and patient agrees to increase Zoloft which is at a subtherapeutic dose. Will 1st see if this can be helpful for mood and possibly lowering AH before increasing Risperdal. Discussed possibly increasing methadone to help with opioid abuse. Mood improved; depression abating and SI resolved. No AVH today. Titrating Zoloft to 100mg; Pt asks for increased methadone for cravings. etoh w/drawal resolved pt reports doing better, mood is better; no sI, no AVH. Says got irritated at peer on unit, but was overall able to remain in control. Says has trouble sleeping and in the past took Serqouel; he says trazodone does not work well and causes him to gain wt. Manufacturing Electrician explained increase risk of side-effects being on 2 antipsychotics, including increased risk of permanent TD; pt expressed understanding and said he'll keep an eye out for symptoms, but has been on both before and that sleep is worth risk. In group, patient found to be stealing bingo prizes; staff reports pt is disruptive in group, irritating others. Discussed this and patient said he wanted to discharge. Pt said he has a friend house he can stay at and would like discharge today. Pt has appointment next week for placement at a group home program and will stay at his friends until then. Pt also says he has adequate supply of meds with him and does not need refills. Patient has improved and is stable and able to continue treatment as an outpatient. Given patient's behaviors, team agrees that patient has maximized the therapeutic options available to him on the unit. While he remains at risk for decompensating or relapsing some future point He is not in imminent risk for harm to self or others and his request for discharge honored. Patient educated on: diagnosis and medication risk/benefits Informed Consent: understands Reason for contiued inpatient stay Substantial Risk for: stable for discharge Time Spent With Patient Time: Total time managing care of this patient today ____ minutes.
--- NOTE | 2022-10-07 12:21 | PM.PSYDC ---
DS: Providers Provider Date of Service: 10/07/22 Date of admission: 10/04/22 17:59 Date of discharge: 10/07/22 Primary care physician: Gautam Macdonald MD Attending physician on admission: Leonides Garcia Attending physician on discharge: Leonides Garcia DS: Diagnosis Discharge Diagnosis (1) Schizoaffective disorder, depressive type: Status: Acute (2) PTSD (post-traumatic stress disorder): Status: Acute (3) Opioid use disorder: Status: Acute (4) Cocaine use disorder: Status: Acute (5) Alcohol use disorder: Status: Acute (6) Hepatitis C: Status: Acute DS: Medications Discharge Medications Home Medications: Home Medications Medication Instructions Recorded Confirmed benztropine 1 mg tablet 1 tab PO BEDTIME 10/05/21 10/03/22 clonazepam 1 mg tablet 1 tab PO BID PRN Anxiety 10/05/21 10/03/22 prazosin 2 mg capsule 1 cap PO BEDTIME 10/05/21 10/03/22 risperidone 2 mg tablet (Risperdal) 1 tab PO BEDTIME 10/05/21 10/03/22 Previous Rx's Medication Instructions Recorded methadone 10 mg/mL oral 75 mg (7.5 mL) PO DAILY #0 mL 10/07/22 concentrate (Methadose) quetiapine 50 mg tablet 50 mg PO BEDTIME PRN insomnia 30 10/07/22 days #30 tabs sertraline 100 mg tablet 100 mg PO DAILY 30 days #30 tabs 10/07/22 Mental Status Exam Mental Status Exam Narrative: Pt is alert and oriented; behavior is cooperative, friendly and calm; patient is not in distress; dressed in casual attire with unkempt hair but adequate hygiene; mood is described as better and affect congruent; eye contact appropriate; Speech is normal rate, volume and prosody and not pressured; some psychomotor retardation present; thought process is organized and goal directed; Thought content is on tx; otherwise pertinent to relevant topics and without any delusional content, paranoid ideations or grandiosity; passive SI; no HI. Intermittent AH Patients insight and judgment appear intact. Data Data Completed and Pending Completed studies during hospitalization [Text1]: 10/03/22 10/03/22 10/03/22 10:16 10:24 10:24 WBC 6.8 RBC 4.51 L Hgb 13.0 L Hct 37.8 L MCV 83.8 MCH 28.8 MCHC 34.4 RDW 13.3 Plt Count 225 MPV 9.1 L Immature Gran % (Auto) 0.3 Neut % (Auto) 57.3 Lymph % (Auto) 29.8 [place] % (Auto) 8.7 Eos % (Auto) 3.5 Baso % (Auto) 0.4 Lymph # (Auto) 2.0 [place] # (Auto) 0.6 Eos # (Auto) 0.2 Baso # (Auto) 0.0 Abs Immat Gran (auto) 0.02 Absolute Neuts (auto) 3.9 Absolute Nucleated RBC 0.000 Nucleated RBC % (auto) 0.0 Sodium 143 Potassium 4.5 Chloride 104 Carbon Dioxide 28 Anion Gap 16 BUN 15 Creatinine 0.80 Estim Creat Clear Calc 124.2 Estimated GFR > 60 Fasting Glucose 128 H Calcium 9.4 Total Bilirubin 0.5 Direct Bilirubin AST 95 H ALT 145 H Alkaline Phosphatase 118 H Total Protein 7.0 Albumin 3.8 Triglycerides Cholesterol LDL Cholesterol, Calc HDL Cholesterol Urine Opiates Screen Urine Fentanyl Screen Ur Barbiturates Screen Ur Phencyclidine Scrn Ur Amphetamines Screen U Benzodiazepines Scrn Urine Cocaine Screen U Marijuana (THC) Screen Ethyl Alcohol COVID-19 (TRUNG) Negative COVID-19 Clin Com See Note 10/03/22 10/03/22 10/05/22 10:24 15:38 08:19 WBC RBC Hgb Hct MCV MCH MCHC RDW Plt Count MPV Immature Gran % (Auto) Neut % (Auto) Lymph % (Auto) [place] % (Auto) Eos % (Auto) Baso % (Auto) Lymph # (Auto) [place] # (Auto) Eos # (Auto) Baso # (Auto) Abs Immat Gran (auto) Absolute Neuts (auto) Absolute Nucleated RBC Nucleated RBC % (auto) Sodium 141 Potassium 4.9 Chloride 102 Carbon Dioxide 33 H Anion Gap 11 L BUN 10 Creatinine 0.87 Estim Creat Clear Calc 116.4 Estimated GFR > 60 Fasting Glucose 95 Calcium 9.3 Total Bilirubin 0.5 Direct Bilirubin AST 64 H ALT 123 H Alkaline Phosphatase 120 H Total Protein 7.2 Albumin 3.8 Triglycerides 91 Cholesterol 179 LDL Cholesterol, Calc 103 HDL Cholesterol 58 Urine Opiates Screen POSITIVE H Urine Fentanyl Screen POSITIVE H Ur Barbiturates Screen Not Detected Ur Phencyclidine Scrn Not Detected Ur Amphetamines Screen Not Detected U Benzodiazepines Scrn POSITIVE H Urine Cocaine Screen POSITIVE H U Marijuana (THC) Screen POSITIVE H Ethyl Alcohol < 10 COVID-19 (TRUNG) COVID-19 [facility] Com 10/07/22 08:43 WBC RBC Hgb Hct MCV MCH MCHC RDW Plt Count MPV Immature Gran % (Auto) Neut % (Auto) Lymph % (Auto) [place] % (Auto) Eos % (Auto) Baso % (Auto) Lymph # (Auto) [place] # (Auto) Eos # (Auto) Baso # (Auto) Abs Immat Gran (auto) Absolute Neuts (auto) Absolute Nucleated RBC Nucleated RBC % (auto) Sodium Potassium Chloride Carbon Dioxide Anion Gap BUN Creatinine Estim Creat Clear Calc Estimated GFR Fasting Glucose Calcium Total Bilirubin 0.3 Direct Bilirubin < 0.2 AST 67 H ALT 128 H Alkaline Phosphatase 114 Total Protein 7.6 Albumin 4.0 Triglycerides Cholesterol LDL Cholesterol, Calc HDL Cholesterol Urine Opiates Screen Urine Fentanyl Screen Ur Barbiturates Screen Ur Phencyclidine Scrn Ur Amphetamines Screen U Benzodiazepines Scrn Urine Cocaine Screen U Marijuana (THC) Screen Ethyl Alcohol COVID-19 (TRUNG) COVID-19 Clin Com DS: Summary Hospital Course Hospital Course: HPI: patient is a 42-year-old male with history of PTSD, psychotic symptoms, hep C and substance abuse, on methadone, who presents for worsening depression following the of his mother 2 months ago. Patient reports that he actively abuses substances and he has been homeless for at least 10 years, mostly sleeping outside. -Patient is provisionally diagnosed with schizoaffective disorder, since he has depressive symptoms and intermittent AH that are independent of mood; will leave as provisional since both chronic daily substance abuse and PTSD can be confounding etiologies Hospital course: -patient withdrawing from alcohol; will start CIWA and gabapentin with taper discussed medication and patient agrees to increase Zoloft which is at a subtherapeutic dose. Will 1st see if this can be helpful for mood and possibly lowering AH before increasing Risperdal. Discussed possibly increasing methadone to help with opioid abuse. Mood improved; depression abating and SI resolved. No AVH today. Titrating Zoloft to 100mg; Pt asks for increased methadone for cravings. etoh w/drawal resolved pt reports doing better, mood is better; no sI, no AVH. Says got irritated at peer on unit, but was overall able to remain in control. Says has trouble sleeping and in the past took Serqouel; he says trazodone does not work well and causes him to gain wt. Barrel Finisher explained increase risk of side-effects being on 2 antipsychotics, including increased risk of permanent TD; pt expressed understanding and said he'll keep an eye out for symptoms, but has been on both before and that sleep is worth risk. In group, patient found to be stealing bingo prizes; staff reports pt is disruptive in group, irritating others. Discussed this and patient said he wanted to discharge. Pt said he has a friend house he can stay at and would like discharge today. Pt has appointment next [facility] and will stay at his friends until then. Pt also says he has adequate supply of meds with him and does not need refills. Patient has improved and is stable and able to continue treatment as an outpatient. Given patient's behaviors, team agrees that patient has maximized the therapeutic options available to him on the unit. While he remains at risk for decompensating or relapsing some future point He is not in imminent risk for harm to self or others and his request for discharge honored. Time spent discussing smoking cessation with patient: 3 to 10 minutes Status at Discharge Functional status at discharge: independent ambulation Overall status at discharge: patient is back to baseline Time Spent with Patient Time attestation: Total time managing care of this patient today ____ minutes. Time spent: Less than 30 minutes Discharge Plan Discharge Anticipated Discharge Date/Time: 10/07/22 12:17 Patient Disposition: Correction Discharge Diagnosis: Schizoaffective disorder, bipolar type Referrals: Gautam Macdonald MD [Primary Care Provider] - (Office will call you with an appointment. ) Discharge Medications: New sertraline 100 mg Tablet 100 mg PO DAILY 30 Days Qty: 30 0RF methadone [Methadose] 10 mg/mL Concentrate 75 mg PO DAILY Qty: 0 0RF Rx Instructions: Partial Fill upon patient request. Continued risperidone [Risperdal] 2 mg tablet 1 tab PO BEDTIME prazosin 2 mg capsule 1 cap PO BEDTIME clonazepam 1 mg tablet 1 tab PO BID PRN (Reason: Anxiety) benztropine 1 mg tablet 1 tab PO BEDTIME Discontinued sertraline [Zoloft] 50 mg tablet 1 tab PO DAILY methadone 10 mg Tablet 70 mg PO DAILY No Action sulfamethoxazole-trimethoprim [Bactrim DS] 800-160 mg tablet 1 tab PO BID Qty: 14 0RF Discharge Orders: Discharge Order (Routine); Ordered 10/07/22 Ordered By: Leonides Garcia Diet: Regular diet Activity on Discharge: As tolerated Stand Alone Forms: Patient Portal Discharge page, Community Support Care Plan Goals: Maintain mood and safe behaviors Take medications as prescribed Continue to pursue sobriety Practice coping skills Continue with outpatient providers and reach out to them as needed Health Concerns: Mood stability and behaviors Sobriety Plan of Treatment: Follow up with your Psychiatric provider and other outpatient providers regarding above concerns Take medications as prescribed Assessment: Risk assessment at time of discharge:? Patient was interviewed prior to discharge and found to be fully oriented and without any SI or HI. Patient has insight and demonstrates good judgment in terms of wanting to pursue treatment. Patient is not in imminent risk of harm to self or others and has a safety plan that includes presenting to the closest ER or calling 911 if feeling unsafe.? Patient has been observed closely by nursing and unit staff throughout admission; patient has not engaged in any behaviors that suggest dangerousness to self or others and has demonstrated appropriate behaviors and impulse control Discharge Date/Time: 10/07/22 14:06
[2022-10-07] MEDS: Naloxone HCl Nasal TAKE HOME 4 MG SPRAY NOSTRILALT (13:47)
== END 2022-10-07 14:06 | disposition home or self-care (01) | DRG 750 ==
LOC: HO.ED 10-04 15:21 → HO.PM5 10-04 18:06
PROVIDERS: Admitting Provider Psychiatry & Neurology Psychiatry; Emergency Provider Emergency Medicine; PCP Psychiatry & Neurology Psychiatry; Visit Provider Psychiatry & Neurology Psychiatry
DX: F25.1 Schizoaffective disorder, depressive type (principal); R45.851 Suicidal ideations; B19.20 Unspecified viral hepatitis C without hepatic coma; F11.20 Opioid dependence, uncomplicated; F14.10 Cocaine abuse, uncomplicated; F43.10 Post-traumatic stress disorder, unspecified; F17.210 Nicotine dependence, cigarettes, uncomplicated; Z71.6 Tobacco abuse counseling; Z20.822 Contact with and (suspected) exposure to COVID-19; Z79.899 Other long term (current) drug therapy
CPT/HCPCS: 36415; 80053; 80061; 80076; 80307; 82077; 85025; 87635; 93005; 99285; S9485

== ENCOUNTER 2022-10-13 01:20 | Emergency (ER) | payer OTHER, MEDICAID, SELFPAY ==
[2022-10-13 02:26] VITALS: BP 100/69; PULSE 70; RESP 16; TEMP 37.1; O2SAT 95; BMI 27.4
--- NOTE | 2022-10-13 03:12 | ED_ITS ---
HPI - Psych General Chief Complaint: Psychiatric Symptoms Stated Complaint: suicidal Time Seen by Provider: 10/13/22 03:06 Source: patient Mode of arrival: ambulatory Limitations: no limitations History of Present Illness HPI Narrative: Patient comes to the emergency room complaining of suicidal ideation. Patient admits to using heroin and cocaine. Patient states that his depression got much worse. Patient is homeless. Patient states that earlier today he tried to inject drug in his right arm, unclear if he missed but since then it has been swollen and puffy. Denies fever or chills Related Data Home Medications Medication Instructions Recorded Confirmed benztropine 1 mg tablet 1 tab PO BEDTIME 10/05/21 10/13/22 clonazepam 1 mg tablet 1 tab PO BID PRN Anxiety 10/05/21 10/13/22 prazosin 2 mg capsule 1 cap PO BEDTIME 10/05/21 10/13/22 risperidone 2 mg tablet (Risperdal) 1 tab PO BEDTIME 10/05/21 10/13/22 Previous Rx's Medication Instructions Recorded methadone 10 mg/mL oral 75 mg (7.5 mL) PO DAILY #0 mL 10/07/22 concentrate (Methadose) sertraline 100 mg tablet 100 mg PO DAILY 30 days #30 tabs 10/07/22 Allergies Allergy/AdvReac Type Severity Reaction Status Date / Time haloperidol [From Haldol] AdvReac Unknown Verified 10/13/22 02:28 Review of Systems Review of Systems: Constitutional : No Weight loss, No Fever, No Chills, No Night Sweats, No Fatigue, No Malaise ENT/Mouth : No Hearing loss, No Ear Pain, No Nasal Congestion, No Sinus Pain, No Hoarseness, No sore throat, No Rhinorrhea, No Swallowing Difficulty Eyes: No Eye Pain, No Swelling, No Redness, No Foreign Body, No Discharge, No Vision Changes Cardiovascular : No Chest Pain, No SOB, No Dyspnea on Exertion, No Orthopnea, No Edema, No Palpitations Respiratory : No Cough, No Sputum, No Wheezing, No Smoke Exposure, No Dyspnea Gastrointestinal : No Nausea, No Vomiting, No Diarrhea, No Constipation, No abdominal Pain, No Hematochezia, No Melena Genitourinary : no irregular bleeding, No Dysuria, No Urinary Frequency, No Hematuria, No Urinary Incontinence, No Urgency, No Flank Pain, No Urinary Flow Changes, No Hesitancy Musculoskeletal : No joint pain, No Myalgias, No Joint Swelling Skin : No Skin Lesions, No rash Neuro : No Weakness, No Numbness, No Paresthesias, No Loss of Consciousness, No Dizziness, No Headache Psych : Patient complaining of anxiety, depression, suicidal ideation, no homicidal ideation, homelessness Heme/Lymph: No Bruising, No Bleeding,No Lymphadenopathy Endocrine : No Polyuria, No Polydipsia, No Temperature Intolerance [facility] Past Medical History Medical History Alcohol use disorder Anemia Cocaine use disorder Hepatitis C Opioid use disorder PTSD (post-traumatic stress disorder) Schizoaffective disorder, depressive type Substance abuse Social History Social History Household Members: None Housing: Homeless Do you presently have visiting nurse or other home services: No Alcohol intake: current Alcohol intake frequency: 3 or more drinks per day Alc ohol type: hard liquor Patient Tobacco Use Status: Current everyday Tobacco user Tobacco use type: Cigarette Cigarette Packs Per Day: 1 Cigarettes Per Day: 20.0 Years Smoked: 4 e-Cigarette/Vaping Use: Currently Using Second Hand Smoke Exposure: No Substance Use Type: Crack/Cocaine, Heroin, Marijuana, Opiates and Caffiene Advance Directives: No service: No Sexual orientation: Straight/Heterosexual Physical Exam Vital Signs: Vital Signs: Last Vital Signs Temp 98.8 F 10/13/22 02:26 Pulse 70 10/13/22 02:26 Resp 16 10/13/22 02:26 BP 100/69 10/13/22 02:26 Pulse Ox 95 10/13/22 02:26 O2 Del Method 10/13/22 02:26 BMI result Body Mass Index 27.4 Const: Other: Appearance: Alert. Oriented X3. No acute distress. Eyes: Pupils equal, round and reactive to light. ENT: Pharynx normal. Neck: Normal inspection. Neck supple. No lymph nodes noted. No crepitus CVS: Normal heart rate and rhythm. Pulses normal. Normal S1 and S2 Respiratory: No respiratory distress. Breath sounds normal. No Wheezing. No rales Abdomen: Soft and nontender. No rigidity. No distention. Skin: In the right antecubital fossa, there is mild erythema and mild swelling, no palpable abscess Extremities: No lower extremity edema. No Lacerations. No Rash Neuro: Oriented X 3. No motor deficit. No sensory deficit. Moving all extremities. No slurred speech. CN 2 through 12 grossly intact Psych: calm, cooperative, normal affect Medical Decision Making Medical Decision Making MDM Narrative: -patient likely starting to develop cellulitis in the right antecubital fossa, given the 1st dose of Bactrim in the ED, patient will need to continue antibiotics when patient is discharged -U tox pending -care team consult pending -physician observation started at 03:15 -sign-out given to Dr. Matthew Discharge Plan Discharge Clinical Impression: Suicidal ideation, Cellulitis of arm Patient Disposition: Still a Patient Prescriptions: No Action risperidone [Risperdal] 2 mg tablet 1 tab PO BEDTIME prazosin 2 mg capsule 1 cap PO BEDTIME clonazepam 1 mg tablet 1 tab PO BID PRN (Reason: Anxiety) benztropine 1 mg tablet 1 tab PO BEDTIME sertraline 100 mg Tablet 100 mg PO DAILY 30 Days Qty: 30 0RF methadone [Methadose] 10 mg/mL Concentrate 75 mg PO DAILY Qty: 0 0RF Rx Instructions: Partial Fill upon patient request. Interventions: Nelson-Suicide Risk Severity Scale Last Done: 10/13/22 03:13
[2022-10-13] MEDS: Sulfamethox/Trimeth 800/160 TABLET 1 TAB PO ×2 (03:19→16:33)
[2022-10-13 03:29] LABS: MANUAL DIFF FLAG NO
[2022-10-13 03:30] LABS: Basophils Percent Auto 0.5 % (0-2); Eosinophils Percent Auto 0.4 % (0-4); Hematocrit 38.3 % (42.0-52.0); Hemoglobin 12.9 g/dl (14.0-18.0); Imm Gran Abs Auto 0.02 X10*3/uL (0.00-0.03); Imm Gran Pct Auto 0.2 % (0.0-0.4); Lymphocytes Absolute Auto 2.5 X10*3/uL (1.2-4.9); Lymphocytes Percent Auto 29.3 % (20-40); Mean Corpuscular HGB Conc 33.7 g/dl (31.0-36.0); Mean Corpuscular Hemoglobin 28.2 pg (27.0-33.0); Mean Corpuscular Volume 83.8 fL (80.0-98.0); Mean Platelet Volume 8.7 fL (9.4-12.4); Monocytes Absolute Auto 0.5 X10*3/uL (0.1-1.2); Neutrophils Absolute Auto 5.3 x10*3/uL (2.0-8.3); Neutrophils Percent Auto 63.6 % (45-73); Platelet Count 235 X10*3/uL (160-400); Red Blood Count 4.57 X10*6/uL (4.60-5.80); Red Cell Distribution Width 13.2 % (11.0-16.0); White Blood Count 8.4 X10*3/uL (4.8-10.8)
[2022-10-13 03:42] LABS: COVID-19 Test Negative (Negative); IDNOW Serial# BCCEAD1C
[2022-10-13 03:42] LABS: Ethanol < 10 mg/dL
[2022-10-13 03:43] LABS: Amphetamine Screen Urine Not Detected (Not Detect); Barbiturates, Urine Not Detected (Not Detect); Benzodiazepines Screen Urine Not Detected (Not Detect); Cannabinoid Screen Urine POSITIVE (Not Detect); Cocaine Screen Urine POSITIVE (Not Detect); Fentanyl, urine POSITIVE (Not Detect); Opiate Screen Urine POSITIVE (Not Detect); Phencyclidine Screen Urine Not Detected (Not Detect)
[2022-10-13 03:44] LABS: Alanine Aminotransferase 148 U/L (0-40); Albumin Level 3.9 g/dL (3.5-5.0); Alkaline Phosphatase 120 U/L (39-117); Anion Gap 16 (12-20); Aspartate Amino Transferase 97 U/L (5-37); Bilirubin Total 0.8 mg/dL (0.0-1.0); Blood Urea Nitrogen 17 mg/dL (9-16); Calcium 9.2 mg/dL (8.4-10.2); Carbon Dioxide 29 mmol/L (22-29); Chloride 101 mmol/L (96-108); Creatinine Clr Calc Pharmacy 115.9; Estimated Glomerular Filt Rate > 60; Glucose Random 118 mg/dL (60-115); Potassium 4.5 mmol/L (3.3-5.1); Sodium 141 mmol/L (135-145); Total Protein 7.2 g/dL (6.5-8.0)
--- NOTE | 2022-10-13 06:18 | PC.NURSE ---
Patient slept through the night, no distress observed/reported at this time, Med rec completed/pending provider's approval, Pending Methadone dose verification, patient is awaiting care team evaluation, behavior non concerning, VSS, will continue to monitor.
--- NOTE | 2022-10-13 06:20 | PC.NURSE ---
Bactrim one dose administered at 0319 for infection at right anticubital from IV use,
[2022-10-13 07:46] VITALS: BP 98/58; PULSE 64; RESP 16; TEMP 36.6; O2SAT 95
--- NOTE | 2022-10-13 10:06 | PC.NURSE ---
Call placed twice to [facility] in [place] to verify pt's methadone dose. No answer either time, second time left message to call back.
[2022-10-13] MEDS: clonazePAM 1 MG TABLET PO (13:55)
[2022-10-13] MEDS: Sertraline HCL 100 MG TABLET PO (13:55)
[2022-10-13] MEDS: methADONE HCl 20 MG/2 ML ORAL.CONC 40 MG PO (13:55)
--- NOTE | 2022-10-13 14:15 | MHC.RECOVRN ---
This copy writer met w/ patient. Patient alert, oriented, watching t.v. Patient requesting detox. Patient reports past 2 years daily use of HOLLY and Opiates. HOLLY 1 gram daily, Heroin 3 bundles daily IV. Patient reports has been on Methadone, however missed a few doses [employer]. Patient requesting detox, patient reports has been to detox in the past. Harm reduction reviewed. Patient cordial, agreeable at bedside to [facility] bedsearch.
--- NOTE | 2022-10-13 15:24 | PC.NURSE ---
attempted to verify methadone dosage, per Em facility typically closes at noon. verifications forms in pts chart, plan for detox bed search, pt medicated per provider order. resting quietly.
[2022-10-13] MEDS: risperiDONE 2 MG TABLET PO (20:04)
[2022-10-13] MEDS: Benztropine Mesylate 1 MG TABLET PO (20:04)
[2022-10-13 20:11] VITALS: BP 98/61; PULSE 95; RESP 18; TEMP 37; O2SAT 96
--- NOTE | 2022-10-13 21:31 | MHC.RECOVSUP ---
? Reason for consult:OPI o? Current location:[facility]? o? Identified substance use concern:? -? Seeking ATS (detox) -? Support ?? Intervention: o? ATS bed search started/completed/in process o? Community resources provided ? Plan: o? Bed search in progress to o? Follow up tomorrow? ? Additional information:ZOHRA tried to connect with [facility] but never got through. Please follow up tomorrow! 10/14/22
[2022-10-14 00:54] VITALS: BP 103/73; PULSE 58; RESP 16; TEMP 37; O2SAT 98
[2022-10-14] MEDS: clonazePAM 1 MG TABLET PO ×2 (01:55→08:04)
--- NOTE | 2022-10-14 05:46 | PC.NURSE ---
Patient slept through the night, no distress observed/reported, no behavior concerns, medication compliant, recovery team coordinating detox bed search, VSS, will continue to monitor.
[2022-10-14] MEDS: Sertraline HCL 100 MG TABLET PO (08:04)
--- NOTE | 2022-10-14 08:48 | HE.PHANOTE ---
RE: methadone Received verification form for 80mg last dose 10/08/22 while here; reached out to Dr. Quintana to see about contacting [facility] for possible re-titration
--- NOTE | 2022-10-14 09:33 | MHC.RECOVRN ---
Met with pt in [facility] to follow up regarding ATS search. Pt states I just want my dose and I can go home. I just got off the phone and I can go back. Pt aware [facility] has availability, states I can take the bus there. Discussed with RN. Plan for pt to receive methadone and discharge.
[2022-10-14] MEDS: methADONE HCl 20 MG/2 ML ORAL.CONC 40 MG PO (09:46)
== END 2022-10-14 10:08 | disposition home or self-care (01) ==
PROVIDERS: Emergency Provider Emergency Medicine
DX: R45.851 Suicidal ideations (principal); L03.113 Cellulitis of right upper limb; F19.10 Other psychoactive substance abuse, uncomplicated; F41.9 Anxiety disorder, unspecified; Z20.822 Contact with and (suspected) exposure to COVID-19; F25.0 Schizoaffective disorder, bipolar type; F11.20 Opioid dependence, uncomplicated; F17.210 Nicotine dependence, cigarettes, uncomplicated; Z79.899 Other long term (current) drug therapy
CPT/HCPCS: 36415; 80053; 80307; 82077; 85025; 87635; 99284; S9485

== ENCOUNTER 2022-10-18 15:17 | Emergency (ER) | payer MEDICAID, SELFPAY ==
[2022-10-18 15:28] VITALS: BP 127/77; PULSE 76; RESP 20; TEMP 36; O2SAT 99; BMI 27.4
--- NOTE | 2022-10-18 15:28 | ED_ITS ---
HPI - Psych General Chief Complaint: ETOH/Substance Use <Martine Tineo CNP - Last Filed: 10/18/22 15:30> Stated Complaint: detox <Martine Tineo CNP - Last Filed: 10/18/22 15:30> Time Seen by Provider: 10/18/22 15:42 <Martine Tineo CNP - Last Filed: 10/18/22 15:30> Source: patient <SHANON Shook - Last Filed: 10/18/22 17:44> Mode of arrival: ambulatory <SHANON Shook - Last Filed: 10/18/22 17:44> Limitations: no limitations <SHANON Shook Last Filed: 10/18/22 17:44> History of Present Illness HPI Narrative: Patient is a 42 year old assigned male at with a history of opiate abuse presenting to the emergency department today requesting to go to detox for heorin. Patient states that he would like help getting into a detox for heroin. Patient denies any dizziness, lightheadedness, abdominal pain, nausea, vomiting, fever, chills, blurry vision, double vision, loss of vision, chest pain, difficulty breathing, shortness of breath, back pain, night sweats, pain with urination, increased urinary frequency, increased urinary urgency, blood in his urine or stool, syncope or a near syncopal episode, recent trauma or falls, bowel incontinence, bladder incontinence, bowel retention, bladder retention, or any other complaints at this time. <SHANON Shook Last Filed: 10/18/22 17:44> Relieving factors: none <SHANON Shook Last Filed: 10/18/22 17:44> Exacerbating factors: none <SHANON Shook Last Filed: 10/18/22 17:44> Context: recent drug abuse <SHANON Shook Last Filed: 10/18/22 17:44> Associated psychiatric symptoms: none <SHANON Shook Last Filed: 10/18/22 17:44> Associated symptoms: denies other symptoms <SHANON Shook Last Filed: 10/18/22 17:44> Treatments prior to arrival: none <SHANON Shook Last Filed: 10/18/22 17:44> Related Data Home Medications: Home Medications Medication Instructions Recorded Confirmed benztropine 1 mg tablet 1 tab PO BEDTIME 10/05/21 10/13/22 clonazepam 1 mg tablet 1 tab PO BID PRN Anxiety 10/05/21 10/13/22 prazosin 2 mg capsule 1 cap PO BEDTIME 10/05/21 10/13/22 risperidone 2 mg tablet (Risperdal) 1 tab PO BEDTIME 10/05/21 10/13/22 Previous Rx's Medication Instructions Recorded methadone 10 mg/mL oral 75 mg (7.5 mL) PO DAILY #0 mL 10/07/22 concentrate (Methadose) sertraline 100 mg tablet 100 mg PO DAILY 30 days #30 tabs 10/07/22 sulfamethoxazole 800 1 tab PO BID #14 tabs 10/14/22 mg-trimethoprim 160 mg tablet (Bactrim DS) <Martine Tineo CNP - Last Filed: 10/18/22 15:30> Allergies/Adverse Reactions: Allergies Allergy/AdvReac Type Severity Reaction Status Date / Time haloperidol [From Haldol] AdvReac Unknown Verified 10/13/22 02:28 <Martine Tineo CNP - Last Filed: 10/18/22 15:30> Review of Systems Constitutional: Constitutional: Reports no additional constitutional complaints, Denies chills, Denies fever(s) and Denies night sweats <SHANON Shook Last Filed: 10/18/22 17:44> Eyes: Eyes: Reports no additional eye complaints, Denies blurry vision, Denies change in vision, Denies diplopia, Denies eye discharge, Denies loss of vision and Denies eye pain <SHANON Shook Last Filed: 10/18/22 17:44> ENT: Denies dizziness <SHANON Shook Last Filed: 10/18/22 17:44> Cardiovascular: Cardiovascular: Reports no additional cardiovascular complaints, Denies chest pain, Denies lightheadedness, Denies Loss of Consciousness and Denies dyspnea <SHANON Shook Last Filed: 10/18/22 17:44> Respiratory: Respiratory: Reports no additional respiratory complaints and Denies dyspnea <SHANON Shook Last Filed: 10/18/22 17:44> Gastrointestinal: Gastrointestinal: Reports no additional gastrointestinal complaints, Denies abdominal pain, Denies melena, Denies hematochezia, Denies change in bowel habits and Denies change in stool character <SHANON Shook - Last Filed: 10/18/22 17:44> Genitourinary: Genitourinary: Reports no additional male genitourinary complaints, Denies hematuria, Denies oliguria, Denies difficulty urinating, Denies dysuria, Denies urinary frequency, Denies urinary hesitancy, Denies urinary incontinence and Denies urinary urgency <SHANON Shook - Last Filed: 10/18/22 17:44> Musculoskeletal: Musculoskeletal: Reports no additional musculoskeletal complaints, Denies numbness and Denies tingling <SHANON Shook - Last Filed: 10/18/22 17:44> Neurologic: Denies dizziness, Denies loss of vision, Denies numbness and Denies tingling <SHANON Shook - Last Filed: 10/18/22 17:44> Psychiatric: Psychiatric: Reports no additional psychiatric complaints <SHANON Shook - Last Filed: 10/18/22 17:44> Endocrine: Endocrine: Reports no additional endocrine complaints <SHANON Shook - Last Filed: 10/18/22 17:44> Hematologic/Lymphatic: Hematologic/Lymphatic: Reports no additional hematologic/lymphatic complaints <SHANON Shook - Last Filed: 10/18/22 17:44> Allergic/Immunologic: Allergic/Immunologic: Reports no additional allergic/immunologic complaints <SHANON Shook - Last Filed: 10/18/22 17:44> [facility] Past Medical History Attestation statement: The following information was validated with the patient. <SHANON Shook - Last Filed: 10/18/22 17:44> Source: nursing notes reviewed <SHANON Shook - Last Filed: 10/18/22 17:44> Medical History: Medical History Alcohol use disorder Anemia Cocaine use disorder Hepatitis C Opioid use disorder PTSD (post-traumatic stress disorder) Schizoaffective disorder, depressive type Substance abuse <Martine Tineo CNP - Last Filed: 10/18/22 15:30> Social History Social History: Social History Household Members: None Housing: Homeless Do you presently have visiting nurse or other home services: No Alcohol intake: current Alcohol intake frequency: 3 or more drinks per day Alcohol type: hard liquor Patient Tobacco Use Status: Current everyday Tobacco user Tobacco use type: Cigarette Cigarette Packs Per Day: 1 Cigarettes Per Day: 20.0 Years Smoked: 4 e-Cigarette/Vaping Use: Currently Using Second Hand Smoke Exposure: No Substance Use Type: Crack/Cocaine, Heroin, Marijuana, Opiates and Caffiene Advance Directives: No Advance Directives Information Provided: No service: No Sexual orientation: Straight/Heterosexual <Martine Tineo CNP - Last Filed: 10/18/22 15:30> Physical Exam Vital Signs: Vital Signs: Last Vital Signs Temp 96.8 F 10/18/22 15:28 Pulse 76 10/18/22 15:28 Resp 20 10/18/22 15:28 BP 127/77 10/18/22 15:28 Pulse Ox 99 10/18/22 15:28 O2 Del Method 10/18/22 15:28 BMI result Body Mass Index 27.4 <Martinekemi Tineo CNP - Last Filed: 10/18/22 15:30> Vital Signs: Last Vital Signs Temp 96.8 F 10/18/22 15:28 Pulse 76 10/18/22 15:28 Resp 20 10/18/22 15:28 BP 127/77 10/18/22 15:28 Pulse Ox 99 10/18/22 15:28 O2 Del Method 10/18/22 15:28 BMI result Body Mass Index 27.4 <SHANON Shook - Last Filed: 10/18/22 17:44> Vital Signs: Last Vital Signs Temp 96.8 F 10/18/22 15:28 Pulse 76 10/18/22 15:28 Resp 20 10/18/22 15:28 BP 127/77 10/18/22 15:28 Pulse Ox 99 10/18/22 15:28 O2 Del Method 10/18/22 15:28 BMI result Body Mass Index 27.4 <SHANON Bang - Last Filed: 10/18/22 18:32> Const: General: cooperative, no acute distress, alert and awake <Danuta Javed PA - Last Filed: 10/18/22 17:44> Nutritional Appearance: well nourished <Danutadotty Gilbertanders PA - Last Filed: 10/18/22 17:44> Orientation/consciousness: patient oriented x3 <Danuta Javed PA - Last Filed: 10/18/22 17:44> Limitations: no limitations <Danuta Javed PA - Last Filed: 10/18/22 17:44> HEENT: Head: Yes normal to inspection and Yes atraumatic <Danuta Javed PA - Last Filed: 10/18/22 17:44> Ears: hearing grossly normal bilaterally and external ears normal <Danuta Javed PA - Last Filed: 10/18/22 17:44> General nose exam: Normal external nose present, no nasal discharge noted and no epistaxis <Danuta Javed PA - Last Filed: 10/18/22 17:44> Face and sinus: Yes normal facial exam, No abrasion and No laceration <Danuta Javed PA - Last Filed: 10/18/22 17:44> Mouth: Normal oral and palatal mucosa present, no drooling and no muffled voice <Danuta Javed PA - Last Filed: 10/18/22 17:44> Eyes: General: appearance normal, both eyes and all related structures <Danuta Javed PA - Last Filed: 10/18/22 17:44> Periorbital: periorbital findings normal <Danuta Javed PA - Last Filed: 10/18/22 17:44> Eyelids: Yes eyelids normal <Danuta Javed PA - Last Filed: 10/18/22 17:44> Conjunctivae: conjunctivae normal <Danuta Javed PA - Last Filed: 17:44> Pupils: Equal, round and reactive pupils present <Danuta Javed PA - Last Filed: 10/18/22 17:44> EOM: EOMs intact bilaterally <Danuta Javed PA - Last Filed: 10/18/22 17:44> Neck: Neck: Yes normal visual inspection, Yes full ROM and Yes no lymphadenopathy <Danuta Javed PA - Last Filed: 10/18/22 17:44> Chest: Chest palpation & inspection: normal inspection of the chest <Danuta Javed SHANON - Last Filed: 10/18/22 17:44> Resp: Effort & Inspection: normal respiratory effort and able to speak in complete sentences <Danuta Javed IN - Last Filed: 10/18/22 17:44> Auscultation: clear to auscultation bilaterally <Danuta Javed PA - Last Filed: 10/18/22 17:44> Cardio: Rate: regular rate <Danuta Javed IN - Last Filed: 10/18/22 17:44> Rhythm: regular rhythm <Danuta Javed IN - Last Filed: 10/18/22 17:44> GI: Inspection: Yes normal to inspection <Danuta JavedSHANON - Last Filed: 10/18/22 17:44> Palpation (GI): Soft to palpation, not firm, nontender, no guarding and not rigid <Danuta Javed IN - Last Filed: 10/18/22 17:44> Neuro: General: patient oriented x3 and moves all extremities <Danuta Javed IN - Last Filed: 10/18/22 17:44> Cranial nerves: Yes Equal, round and reactive pupils present <Danuta Javed IN - Last Filed: 10/18/22 17:44> Cognition (Neuro): normal cognition <Danuta Javed IN - Last Filed: 10/18/22 17:44> Motor exam (neuro): 5/5 motor strength present throughout <Danuta Javed IN - Last Filed: 10/18/22 17:44> Sensory Exam: Normal double simultaneous stimulation for sensation <Danuta Javed IN - Last Filed: 10/18/22 17:44> Coordination: [id number] test normal <Danuta Javed IN - Last Filed: 10/18/22 17:44> Extrem: General: Yes normal to inspection, Yes full ROM and Yes capillary refill normal <Danuta Javed IN - Last Filed: 10/18/22 17:44> Psych: Appearance: grossly normal <Danuta Javed IN - Last Filed: 10/18/22 17:44> Mental Status: mental status grossly normal <SHANON Shook - Last Filed: 10/18/22 17:44> Affect: normal affect <SHANON Shook - Last Filed: 10/18/22 17:44> Attitude: cooperative <SHANON Shook - Last Filed: 10/18/22 17:44> Thought process: Normal thought process present <SHANON Shook - Last Filed: 10/18/22 17:44> Thought content: Normal thought content present <SHANON Shook - Last Filed: 10/18/22 17:44> Insight: Good insight present (Psych) <SHANON Shook - Last Filed: 10/18/22 17:44> Course Course Course Narrative: This is an RME: Additional HPI, ROS, PE not included below will be deferred to primary provider. Patient is requesting assistance with detox from marijuana, heroin injecting approximately 3 bundles daily. States in detox 1 month ago at [facility]. Reports that he called [facility] detox in [place], and was advised there was bed availability, but wasn't sure if he could go. Denies SI/HI. Denies ETOH usage. Plan: CARE team referral. <Martine Tineo CNP - Last Filed: 10/18/22 15:30> Reevaluation(s) Reevaluation #1: Patient will be going to [facility] in [place] for detox. <SHANON Bang - Last Filed: 10/18/22 18:32> Time: 18:32 <SHANON Bang - Last Filed: 10/18/22 18:32> Medical Decision Making Medical Decision Making MDM Narrative: Patient is a 42 year old assigned male at with a history of opiate abuse presenting to the emergency department today requesting help to get into a detox for heroin. Patient's physical exam was unremarkable. I explained my physical exam findings to the patient. I answered all questions asked by the patient. gymnastics coach or instructor got the patient placed in a rehab facility and arranged transportation for him. I stressed the importance of the patient taking his medication as prescribed. I stressed the importance of the patient following up with his primary care provider. I stressed the importance of the patient returning to the emergency department immediately if he were to develop any dizziness, shortness of breath, difficulty breathing, chest pain, blurry vision, loss of vision, nausea, vomiting, abdominal pain, fever, chills, back pain, or any other complaints. Patient verbalized agreement and understanding with this treatment plan and discharge. <SHANON Shook - Last Filed: 10/18/22 17:44> Differential Diagnosis Differential Diagnoses: The differential diagnosis associated with the presentation includes <SHANON Shook - Last Filed: 10/18/22 17:44> opiate abuse, requeting detox <SHANON Shook - Last Filed: 10/18/22 17:44> Lab Data Labs: Lab Results 10/18/22 10/18/22 Range/Units 17:24 17:24 Urine Opiates Screen POSITIVE H (Not Detect) Urine Fentanyl Screen POSITIVE H (Not Detect) Ur Barbiturates Screen Not Detected (Not Detect) Ur Phencyclidine Scrn Not Detected (Not Detect) Ur Amphetamines Screen Not Detected (Not Detect) U Benzodiazepines Scrn Not Detected (Not Detect) Urine Cocaine Screen POSITIVE H (Not Detect) U Marijuana (THC) Screen POSITIVE H (Not Detect) COVID-19 (TRUNG) Negative (Negative) COVID-19 Clin Com See Note <Martine Tineo CNP - Last Filed: 10/18/22 15:30> Lab Results 10/18/22 10/18/22 Range/Units 17:24 17:24 Urine Opiates Screen POSITIVE H (Not Detect) Urine Fentanyl Screen POSITIVE H (Not Detect) Ur Barbiturates Screen Not Detected (Not Detect) Ur Phencyclidine Scrn Not Detected (Not Detect) Ur Amphetamines Screen Not Detected (Not Detect) U Benzodiazepines Scrn Not Detected (Not Detect) Urine Cocaine Screen POSITIVE H (Not Detect) U Marijuana (THC) Screen POSITIVE H (Not Detect) COVID-19 (TRUNG) Negative (Negative) COVID-19 Clin Com See Note <SHANON Shook - Last Filed: 10/18/22 17:44> Lab Results 10/18/22 10/18/22 Range/Units 17:24 17:24 Urine Opiates Screen POSITIVE H (Not Detect) Urine Fentanyl Screen POSITIVE H (Not Detect) Ur Barbiturates Screen Not Detected (Not Detect) Ur Phencyclidine Scrn Not Detected (Not Detect) Ur Amphetamines Screen Not Detected (Not Detect) U Benzodiazepines Scrn Not Detected (Not Detect) Urine Cocaine Screen POSITIVE H (Not Detect) U Marijuana (THC) Screen POSITIVE H (Not Detect) COVID-19 (TRUNG) Negative (Negative) COVID-19 Clin Com See Note <SHANON Bang - Last Filed: 10/18/22 18:32> Discharge Plan Discharge Clinical Impression: Opioid use disorder <Martine Tineo CNP - Last Filed: 10/18/22 15:30> Patient Disposition: Home, Self-Care <Martine Tineo CNP - Last Filed: 10/18/22 15:30> Instructions: Opioid Use Disorder (ED) <Martine Tineo CNP - Last Filed: 10/18/22 15:30> Additional Instructions: Follow up with your primary care provider. Return to the emergency department immediately if your symptoms worsen or if you develop any dizziness, shortness of breath, difficulty breathing, chest pain, blurry vision, loss of vision, nausea, vomiting, abdominal pain, fever, chills, back pain, or any other complaints. <Martine Tineo CNP - Last Filed: 10/18/22 15:30> Prescriptions: No Action risperidone [Risperdal] 2 mg tablet 1 tab PO BEDTIME prazosin 2 mg capsule 1 cap PO BEDTIME clonazepam 1 mg tablet 1 tab PO BID PRN (Reason: Anxiety) benztropine 1 mg tablet 1 tab PO BEDTIME sulfamethoxazole-trimethoprim [Bactrim DS] 800-160 mg tablet 1 tab PO BID Qty: 14 0RF sertraline 100 mg Tablet 100 mg PO DAILY 30 Days Qty: 30 0RF methadone [Methadose] 10 mg/mL Concentrate 75 mg PO DAILY Qty: 0 0RF Rx Instructions: Partial Fill upon patient request. <Martine Tineo CNP - Last Filed: 10/18/22 15:30> Referrals: Andrew Mathis PA-C [Primary Care Provider] - <Martine Tineo CNP - Last Filed: 10/18/22 15:30> Print Language: Welsh <Martine Tineo CNP - Last Filed: 10/18/22 15:30>
[2022-10-18 17:45] LABS: Amphetamine Screen Urine Not Detected (Not Detect); Barbiturates, Urine Not Detected (Not Detect); Benzodiazepines Screen Urine Not Detected (Not Detect); Cannabinoid Screen Urine POSITIVE (Not Detect); Cocaine Screen Urine POSITIVE (Not Detect); Fentanyl, urine POSITIVE (Not Detect); Opiate Screen Urine POSITIVE (Not Detect); Phencyclidine Screen Urine Not Detected (Not Detect)
[2022-10-18 17:56] LABS: COVID-19 Test Negative (Negative); IDNOW Serial# 16C4AD1C
--- NOTE | 2022-10-18 18:21 | MHC.RECOVSUP ---
? Reason for consult Recovery support o Current location: ER RP01 o Identified substance use concern: Heroin/Cocaine - Seeking ATS (detox) - Support ? Intervention: o ATS bed search started 530/completed 6pm/in process o Community resources provided o Harm reduction discussion ? Plan: o Patient to follow up with [facility] after discharge ? Additional information: Patient seeking help to get to detox.. Patient has a bed at [facility] But No ride at the Moment. Patient paper work was also sent to Beatrice [facility]re[facility] for a potential Bed.. [facility] ride [facility]
== END 2022-10-18 18:49 | disposition home or self-care (01) ==
PROVIDERS: Emergency Provider Emergency Medicine; PCP Physician Assistant
DX: F11.19 Opioid abuse with unspecified opioid-induced disorder (principal); Z20.822 Contact with and (suspected) exposure to COVID-19; Z20.828 Contact with and (suspected) exposure to other viral communicable diseases; F17.210 Nicotine dependence, cigarettes, uncomplicated; Z71.6 Tobacco abuse counseling; Z79.899 Other long term (current) drug therapy
CPT/HCPCS: 80307; 87635; 99283

== ENCOUNTER 2023-01-11 18:31 | Emergency (ER) | payer MEDICAID, SELFPAY ==
--- NOTE | 2023-01-11 18:48 | ED_ITS ---
HPI - Overdose General Chief Complaint: Overdose Stated Complaint: OD,NARCAN BY BYSTANDER,ADMITS TO ETOH USE PER EMS Time Seen by Provider: 01/11/23 18:38 Source: patient Mode of arrival: EMS Limitations: no limitations History of Present Illness HPI Narrative: Patient's history of substance abuse in the past states he is sober for few months today he just had was given Narcan by bystander patient denies any subs tance abuse other than marijuana and few drinks of alcohol week details not available at this time patient alert oriented x3 Related Data Home Medications Medication Instructions Recorded Confirmed benztropine 1 mg tablet 1 tab PO BEDTIME 10/05/21 10/13/22 clonazepam 1 mg tablet 1 tab PO BID PRN Anxiety 10/05/21 10/13/22 prazosin 2 mg capsule 1 cap PO BEDTIME 10/05/21 10/13/22 risperidone 2 mg tablet (Risperdal) 1 tab PO BEDTIME 10/05/21 10/13/22 Previous Rx's Medication Instructions Recorded methadone 10 mg/mL oral 75 mg (7.5 mL) PO DAILY #0 mL 10/07/22 concentrate (Methadose) sertraline 100 mg tablet 100 mg PO DAILY 30 days #30 tabs 10/07/22 sulfamethoxazole 800 1 tab PO BID #14 tabs 10/14/22 mg-trimethoprim 160 mg tablet (Bactrim DS) Allergies Allergy/AdvReac Type Severity Reaction Status Date / Time haloperidol [From Haldol] AdvReac Unknown Verified 10/13/22 02:28 Review of Systems Review of Systems: Yes all other systems are reviewed and are negative PMFSH Past Medical History Medical History Alcohol use disorder Anemia Cocaine use disorder Hepatitis C Opioid use disorder PTSD (post-traumatic stress disorder) Schizoaffective disorder, depressive type Substance abuse Social History Social History Household Members: None Housing: Homeless Do you presently have visiting nurse or other home services: No Alcohol intake: unknown Patient Tobacco Use Status: Current everyday Tobacco user Tobacco use type: Cigarette Cigarette Packs Per Day: 1 Cigarettes Per Day: 20.0 Years Smoked: 4 e-Cigarette/Vaping Use: Currently Using Second Hand Smoke Exposure: No Use of substances other than those prescribed or required for medical reasons: Yes Substance Use Type: Crack/Cocaine, Heroin and Marijuana Last Used Substance: Just Prior to Admission Advance Directives: No Advance Directives Information Provided: No service: No Sexual orientation: Straight/Heterosexual Physical Exam Vital Signs: Vital Signs: Last Vital Signs Pulse 82 01/11/23 19:08 Resp 16 01/11/23 19:08 BP 132/87 01/11/23 19:08 Pulse Ox 96 01/11/23 19:08 O2 Del Method Room Air 01/11/23 19:08 BMI result Body Mass Index 32.3 Appearance: Alert. Oriented X3. No acute distress. Eyes: PERRLA, No Nystagmus ENT: Pharynx normal. Oral Mucosa moist Neck: Normal inspection. Neck supple. CVS: Normal heart rate and rhythm. Pulses normal. Respiratory: No respiratory distress. Equal air entry bilateral, no wheezing/rales/rhonchi Abdomen: Soft and nontender. Bowel sounds are present, no mass palpable, no CVA tenderness Skin: Skin warm and dry. Normal skin color. Normal skin turgor. Extremities: No lower extremity edema. No calf tenderness Neuro: Oriented X 3. No motor deficit. No sensory deficit.No cerebellar signs , cranial nerves II-XII intact Medical Decision Making Lab Data MDM Lab Attestation statement: I reviewed the patient's lab results. Labs: Lab Results 01/11/23 Range/Units 20:18 Urine Opiates Screen POSITIVE H (Not Detect) Urine Fentanyl Screen POSITIVE H (Not Detect) Ur Barbiturates Screen Not Detected (Not Detect) Ur Phencyclidine Scrn Not Detected (Not Detect) Ur Amphetamines Screen Not Detected (Not Detect) U Benzodiazepines Scrn Not Detected (Not Detect) Urine Cocaine Screen POSITIVE H (Not Detect) U Marijuana (THC) Screen POSITIVE H (Not Detect) Discharge Plan Discharge Clinical Impression: Polysubstance abuse Patient Disposition: Home, Self-Care Instructions: Polysubstance Abuse (ED) Additional Instructions: Stop using drugs Follow with detox Prescriptions: No Action risperidone [Risperdal] 2 mg tablet 1 tab PO BEDTIME prazosin 2 mg capsule 1 cap PO BEDTIME clonazepam 1 mg tablet 1 tab PO BID PRN (Reason: Anxiety) benztropine 1 mg tablet 1 tab PO BEDTIME sulfamethoxazole-trimethoprim [Bactrim DS] 800-160 mg tablet 1 tab PO BID Qty: 14 0RF sertraline 100 mg Tablet 100 mg PO DAILY 30 Days Qty: 30 0RF methadone [Methadose] 10 mg/mL Concentrate 75 mg PO DAILY Qty: 0 0RF Rx Instructions: Partial Fill upon patient request.
[2023-01-11 19:08] VITALS: BP 132/87; BP 144/91; PULSE 82; PULSE 93; RESP 16; O2SAT 96; O2SAT 99; BMI 32.3
[2023-01-11 20:36] LABS: Amphetamine Screen Urine Not Detected (Not Detect); Barbiturates, Urine Not Detected (Not Detect); Benzodiazepines Screen Urine Not Detected (Not Detect); Cannabinoid Screen Urine POSITIVE (Not Detect); Cocaine Screen Urine POSITIVE (Not Detect); Fentanyl, urine POSITIVE (Not Detect); Opiate Screen Urine POSITIVE (Not Detect); Phencyclidine Screen Urine Not Detected (Not Detect)
[2023-01-11] MEDS: Naloxone HCl Nasal TAKE HOME 4 MG SPRAY NOSTRILALT (21:15)
== END 2023-01-11 21:38 | disposition home or self-care (01) ==
PROVIDERS: Emergency Provider Internal Medicine
DX: F19.10 Other psychoactive substance abuse, uncomplicated (principal); F17.210 Nicotine dependence, cigarettes, uncomplicated; F11.20 Opioid dependence, uncomplicated; Z79.899 Other long term (current) drug therapy
CPT/HCPCS: 80307; 99284; 99285

== ENCOUNTER 2023-01-14 14:27 | Emergency (ER) | payer MEDICAID, SELFPAY ==
[2023-01-14] VITALS (7 sets, daily range): BP systolic 103–162; BP diastolic 61–78; PULSE 76–114; RESP 12–16; TEMP 37.3; O2SAT 94–100; BMI 41.5
--- NOTE | 2023-01-14 15:05 | ED.OVERDOSE ---
HPI - Overdose General Chief Complaint: Overdose <SHANON Almendarez Last Filed: 01/14/23 16:38> Stated Complaint: ?NARCOTIC/ETOH USE,NODDING OFF PER EMS <SHANON Almendarez Last Filed: 01/14/23 16:38> Time Seen by Provider: 01/14/23 14:49 <SHANON Almendarez Last Filed: 01/14/23 16:38> Source: patient and EMS <SHANON Almendarez Last Filed: 01/14/23 16:38> Mode of arrival: EMS <SHANON Almendarez Last Filed: 01/14/23 16:38> Limitations: no limitations <SHANON Almendarez Last Filed: 01/14/23 16:38> History of Present Illness HPI Narrative: 42 yo male with history of polysubstance abuse, etoh use disorder, hepatitis C, schizoaffective disorder, PTSD who presents to the ER via EMS after he was found sleeping outside. On EMS arrival he was nodding off and was hypoxic to 88%. He was placed on 2L NC and brought to the ER for evaluation. He admits to drinking 1-2 pints of vodka today and taking klonopin.. He told EMS he used a bag of heroin but he denied it here. He is lethargic but arouses to voice. He is unkempt. He says he is feeling better. <SHANON Almendarez - Last Filed: 01/14/23 16:38> MD complaint: accidental overdose <SHANON Almendarez Last Filed: 01/14/23 16:38> Onset (ago): unknown <SHANON Almendarez Last Filed: 01/14/23 16:38> Intent: unwilling to say <SHANON Almendarez Last Filed: 01/14/23 16:38> Context: Accidental Overdose: wanted to get high <SHANON Almendarez Last Filed: 01/14/23 16:38> Treatments Prior to Arrival: oxygen <SHANON Almendarez Last Filed: 01/14/23 16:38> Related Data Home Medications: Home Medications Medication Instructions Recorded Confirmed benztropine 1 mg tablet 1 tab PO BEDTIME 10/05/21 10/13/22 clonazepam 1 mg tablet 1 tab PO BID PRN Anxiety 10/05/21 10/13/22 prazosin 2 mg capsule 1 cap PO BEDTIME 10/05/21 10/13/22 risperidone 2 mg tablet (Risperdal) 1 tab PO BEDTIME 10/05/21 10/13/22 Previous Rx's Medication Instructions Recorded methadone 10 mg/mL oral 75 mg (7.5 mL) PO DAILY #0 mL 10/07/22 concentrate (Methadose) sertraline 100 mg tablet 100 mg PO DAILY 30 days #30 tabs 10/07/22 sulfamethoxazole 800 1 tab PO BID #14 tabs 10/14/22 mg-trimethoprim 160 mg tablet (Bactrim DS) <SHANON Almendarez - Last Filed: 01/14/23 16:38> Allergies/Adverse Reactions: Allergies Allergy/AdvReac Type Severity Reaction Status Date / Time haloperidol [From Haldol] AdvReac Unknown Verified 10/13/22 02:28 <SHANNO Almendarez - Last Filed: 01/14/23 16:38> Review of Systems Review of Systems: Yes all other systems are reviewed and are negative <SHANON Almendarez - Last Filed: 01/14/23 16:38> PMFSH Past Medical History Medical History: Medical History Alcohol use disorder Anemia Cocaine use disorder Hepatitis C Opioid use disorder PTSD (post-traumatic stress disorder) Schizoaffective disorder, depressive type Substance abuse <SHANON Almendarez - Last Filed: 01/14/23 16:38> Social History Social History: Social History Household Members: None Housing: Homeless Do you presently have visiting nurse or other home services: No Alcohol intake: current Alcohol intake frequency: 3 or more drinks per day Alcohol type: hard liquor Patient Tobacco Use Status: Current everyday Tobacco user Tobacco use type: Cigarette Cigarette Packs Per Day: 1 Cigarettes Per Day: 20.0 Years Smoked: 4 Smoked in Last 30 Days: Yes e-Cigarette/Vaping Use: Currently Using Second Hand Smoke Exposure: No Use of substances other than those prescribed or required for medical reasons: Yes Substance Use Type: Heroin and Marijuana Advance Directives: No Advance Directives Information Provided: No service: No Sexual orientation: Straight/Heterosexual <SHANON Almendarez - Last Filed: 01/14/23 16:38> Physical Exam Vital Signs: Vital Signs: Last Vital Signs Temp 99.2 F 01/14/23 14:39 Pulse 82 01/14/23 23:28 Resp 16 01/14/23 23:28 BP 103/61 01/14/23 23:28 Pulse Ox 96 01/14/23 23:28 O2 Del Method Room Air 01/14/23 23:28 O2 Flow Rate 2 01/14/23 16:15 Oxygen Flow Rate 2 01/14/23 14:39 BMI result Body Mass Index 41.5 <SHANON Almendarez - Last Filed: 01/14/23 16:38> Vital Signs: Last Vital Signs Temp 99.2 F 01/14/23 14:39 Pulse 82 01/14/23 23:28 Resp 16 01/14/23 23:28 BP 103/61 01/14/23 23:28 Pulse Ox 96 01/14/23 23:28 O2 Del Method Room Air 01/14/23 23:28 O2 Flow Rate 2 01/14/23 16:15 Oxygen Flow Rate 2 01/14/23 14:39 BMI result Body Mass Index 41.5 <Erma Velez MD - Last Filed: 01/14/23 23:31> Appearance: Lethargic, poorly kempt male. Oriented X3. Slumped over in the stretcher Head: normocephalic, atraumatic. Eyes: Pupils equal, round and reactive to light, pinpoint ENT: Pharynx normal. No tonsillar swelling or exudate. Neck: Normal inspection. Neck supple. CVS: Normal heart rate and rhythm. Pulses normal. Respiratory: No respiratory distress. Breath sounds normal. Abdomen: Soft and nontender. +BS x4 Skin: Skin warm and dry. Normal skin color. Normal skin turgor. No rashes. Extremities: No lower extremity edema. No joint swelling. Track chowdary in right AC area Neuro/psych: Lethargic but arouses to voice. Oriented X 3. Moves all 4 extremities and follows simple commands. CN II-XII intact. Delayed responses to questions. No SI. <SHANON Almendarez - Last Filed: 01/14/23 16:38> Medical Decision Making Medical Decision Making MDM Narrative: 42-year-old male with history of PTSD, schizoaffective disorder, alcohol use disorder, cocaine and opioid use disorder, hepatitis-C who presents to the ER for evaluation after he was found sleeping outside, nodding off with EMS. He was hypoxic to 88% on room air. He is saturating mid 90s on 2 L nasal cannula here. He is protecting his airway. He has adequate respirations. He admits to excessive alcohol use today. He is agreeable to blood work. Will check an alcohol level as well as U tox and basic labs. Will monitor closely. . 16:37 - alcohol level less than 10. Patient continues to be lethargic however does arouse to voice and has adequate respirations. Will hold off on Narcan for now. EM from recovery is meeting with the patient now. Will place patient in physician observation, awaiting sober re-evaluation. Will continue to monitor. <SHANON Almendarez - Last Filed: 01/14/23 16:38> 42-year-old male with history of PTSD, schizoaffective disorder, alcohol use disorder, cocaine and opioid use disorder, hepatitis-C who presents to the ER for evaluation after he was found sleeping outside, nodding off with EMS. He was hypoxic to 88% on room air. He is saturating mid 90s on 2 L nasal cannula here. He is protecting his airway. He has adequate respirations. He admits to excessive alcohol use today. He is agreeable to blood work. Will check an alcohol level as well as U tox and basic labs. Will monitor closely. . 16:37 - alcohol level less than 10. Patient continues to be lethargic however does arouse to voice and has adequate respirations. Will hold off on Narcan for now. EM from recovery is meeting with the patient now. Will place patient in physician observation, awaiting sober re-evaluation. Will continue to monitor. 2331: Patient seen by care team, patient declines detox, patient wants to leave, patient was discharged with home Narcan. He was noted to ambulate with a steady gait. <Erma Velez MD - Last Filed: 01/14/23 23:31> Differential Diagnosis Differential Diagnoses: The differential diagnosis associated with the presentation includes <SHANON Almendarez - Last Filed: 01/14/23 16:38> intentional opiate OD, unintention opiate OD, polysubstance overdose, suicide attempts, substance induced mood disorder, acute psychosis, schizophrenia, schizoaffective disorder, PTSD, bipolar disorder, major depression with psychotic features <SHANON Almendarez - Last Filed: 01/14/23 16:38> Consult Healthcare Provider Management of the patient was discussed with: Occupational Therapist'S Assistant <SHANON Almendarez - Last Filed: 01/14/23 16:38> EM from Recovery <SHANON Almendarez - Last Filed: 01/14/23 16:38> Lab Data MDM Lab Attestation statement: I reviewed the patient's lab results. <SHANON Almendarez - Last Filed: 01/14/23 16:38> Elevated transaminases consistent with alcohol abuse. <SHANON Almendarez - Last Filed: 01/14/23 16:38> Result Diagrams: 01/14/23 15:35 01/14/23 15:35 <SHANON Almendarez - Last Filed: 01/14/23 16:38> Labs: Lab Results 01/14/23 01/14/23 01/14/23 Range/Units 15:35 15:35 18:30 WBC 9.2 (4.8-10.8) X10*3/uL RBC 4.33 L (4.60-5.80) X10*6/uL Hgb 12.9 L (14.0-18.0) g/dl Hct 36.8 L (42.0-52.0) % MCV 85.0 (80.0-98.0) fL MCH 29.8 (27.0-33.0) pg MCHC 35.1 (31.0-36.0) g/dl RDW 13.5 (11.0-16.0) % Plt Count 207 (160-400) X10*3/uL MPV 8.9 L (9.4-12.4) fL Immature Gran % (Auto) 0.4 (0.0-0.4) % Neut % (Auto) 70.1 (45-73) % Lymph % (Auto) 21.2 (20-40) % [place] % (Auto) 7.6 (2-11) % Eos % (Auto) 0.3 (0-4) % Baso % (Auto) 0.4 (0-2) % Lymph # (Auto) 2.0 (1.2-4.9) X10*3/uL [place] # (Auto) 0.7 (0.1-1.2) X10*3/uL Eos # (Auto) 0.0 (0.0-0.4) X10*3/uL Baso # (Auto) 0.0 (0.0-0.2) X10*3/uL Abs Immat Gran (auto) 0.04 H (0.00-0.03) X10*3/uL Absolute Neuts (auto) 6.5 (2.0-8.3) x10*3/uL Absolute Nucleated RBC 0.000 (0.0-0.012) X10*3/uL Nucleated RBC % (auto) 0.0 (0.0-0.2) /100WBC Sodium 133 L (135-145) mmol/L Potassium 3.4 D (3.3-5.1) mmol/L Chloride 96 (96-108) mmol/L Carbon Dioxide 28 (22-29) mmol/L Anion Gap 12 (12-20) BUN 7 L (9-16) mg/dL Creatinine 0.76 (0.5-1.4) mg/dL Estim Creat Clear Calc 123.9 Estimated GFR > 60 Random Glucose 124 H (60-115) mg/dL Calcium 8.9 (8.4-10.2) mg/dL Magnesium 1.8 (1.6-2.6) mg/dL Total Bilirubin 1.6 H (0.0-1.0) mg/dL Direct Bilirubin 0.5 (0.0-0.5) mg/dL AST 346 H (5-37) U/L ALT 147 H (0-40) U/L Alkaline Phosphatase 114 (39-117) U/L Total Protein 6.5 (6.5-8.0) g/dL Albumin 3.8 (3.5-5.0) g/dL Urine Color Yellow Urine Appearance Clear Urine pH 5.5 (5.0-9.0) Ur Specific [place] 1.010 (1.005-1.025) Urine Protein Trace (Neg-Trace) mg/dL Urine Glucose (UA) Negative (Negative) mg/dL Urine Ketones Negative (Negative) mg/dL Urine Blood Trace H (Negative) Urine Nitrite Negative (Negative) Ur Leukocyte Esterase Negative (Negative) Urine RBC 0-2 (0-2) /HPF Urine WBC 0-5 (0-5) /HPF Ur Squamous Epith Cells 0-2 (0-2) /HPF Urine Bacteria None Seen (None Seen) Hyaline Casts 0-2 (0-2) /LPF Urine Opiates Screen (Not Detect) Urine Fentanyl Screen (Not Detect) Ur Barbiturates Screen (Not Detect) Ur Phencyclidine Scrn (Not Detect) Ur Amphetamines Screen (Not Detect) U Benzodiazepines Scrn (Not Detect) Urine Cocaine Screen (Not Detect) U Marijuana (THC) Screen (Not Detect) Ethyl Alcohol < 10 mg/dL 01/14/23 Range/Units 18:30 WBC (4.8-10.8) X10*3/uL RBC (4.60-5.80) X10*6/uL Hgb (14.0-18.0) g/dl Hct (42.0-52.0) % MCV (80.0-98.0) fL MCH (27.0-33.0) pg MCHC (31.0-36.0) g/dl RDW (11.0-16.0) % Plt Count (160-400) X10*3/uL MPV (9.4-12.4) fL Immature Gran % (Auto) (0.0-0.4) % Neut % (Auto) (45-73) % Lymph % (Auto) (20-40) % Rout[place] % (Auto) (2-11) % Eos % (Auto) (0-4) % Baso % (Auto) (0-2) % Lymph # (Auto) (1.2-4.9) X10*3/uL Rout[place] # (Auto) (0.1-1.2) X10*3/uL Eos # (Auto) (0.0-0.4) X10*3/uL Baso # (Auto) (0.0-0.2) X10*3/uL Abs Immat Gran (auto) (0.00-0.03) X10*3/uL Absolute Neuts (auto) (2.0-8.3) x10*3/uL Absolute Nucleated RBC (0.0-0.012) X10*3/uL Nucleated RBC % (auto) (0.0-0.2) /100WBC Sodium (135-145) mmol/L Potassium (3.3-5.1) mmol/L Chloride (96-108) mmol/L Carbon Dioxide (22-29) mmol/L Anion Gap (12-20) BUN (9-16) mg/dL Creatinine (0.5-1.4) mg/dL Estim Creat Clear Calc Estimated GFR Random Glucose (60-115) mg/dL Calcium (8.4-10.2) mg/dL Magnesium (1.6-2.6) mg/dL Total Bilirubin (0.0-1.0) mg/dL Direct Bilirubin (0.0-0.5) mg/dL AST (5-37) U/L ALT (0-40) U/L Alkaline Phosphatase (39-117) U/L Total Protein (6.5-8.0) g/dL Albumin (3.5-5.0) g/dL Urine Color Urine Appearance Urine pH (5.0-9.0) Ur Specific [place] (1.005-1.025) Urine Protein (Neg-Trace) mg/dL Urine Glucose (UA) (Negative) mg/dL Urine Ketones (Negative) mg/dL Urine Blood (Negative) Urine Nitrite (Negative) Ur Leukocyte Esterase (Negative) Urine RBC (0-2) /HPF Urine WBC (0-5) /HPF Ur Squamous Epith Cells (0-2) /HPF Urine Bacteria (None Seen) Hyaline Casts (0-2) /LPF Urine Opiates Screen POSITIVE H (Not Detect) Urine Fentanyl Screen POSITIVE H (Not Detect) Ur Barbiturates Screen Not Detected (Not Detect) Ur Phencyclidine Scrn Not Detected (Not Detect) Ur Amphetamines Screen Not Detected (Not Detect) U Benzodiazepines Scrn Not Detected (Not Detect) Urine Cocaine Screen POSITIVE H (Not Detect) U Marijuana (THC) Screen POSITIVE H (Not Detect) Ethyl Alcohol mg/dL <SHANON Almendarez - Last Filed: 01/14/23 16:38> Lab Results 01/14/23 01/14/23 01/14/23 Range/Units 15:35 15:35 18:30 WBC 9.2 (4.8-10.8) X10*3/uL RBC 4.33 L (4.60-5.80) X10*6/uL Hgb 12.9 L (14.0-18.0) g/dl Hct 36.8 L (42.0-52.0) % MCV 85.0 (80.0-98.0) fL MCH 29.8 (27.0-33.0) pg MCHC 35.1 (31.0-36.0) g/dl RDW 13.5 (11.0-16.0) % Plt Count 207 (160-400) X10*3/uL MPV 8.9 L (9.4-12.4) fL Immature Gran % (Auto) 0.4 (0.0-0.4) % Neut % (Auto) 70.1 (45-73) % Lymph % (Auto) 21.2 (20-40) % [place] % (Auto) 7.6 (2-11) % Eos % (Auto) 0.3 (0-4) % Baso % (Auto) 0.4 (0-2) % Lymph # (Auto) 2.0 (1.2-4.9) X10*3/uL Routt # (Auto) 0.7 (0.1-1.2) X10*3/uL Eos # (Auto) 0.0 (0.0-0.4) X10*3/uL Baso # (Auto) 0.0 (0.0-0.2) X10*3/uL Abs Immat Gran (auto) 0.04 H (0.00-0.03) X10*3/uL Absolute Neuts (auto) 6.5 (2.0-8.3) x10*3/uL Absolute Nucleated RBC 0.000 (0.0-0.012) X10*3/uL Nucleated RBC % (auto) 0.0 (0.0-0.2) /100WBC Sodium 133 L (135-145) mmol/L Potassium 3.4 D (3.3-5.1) mmol/L Chloride 96 (96-108) mmol/L Carbon Dioxide 28 (22-29) mmol/L Anion Gap 12 (12-20) BUN 7 L (9-16) mg/dL Creatinine 0.76 (0.5-1.4) mg/dL Estim Creat Clear Calc 123.9 Estimated GFR > 60 Random Glucose 124 H (60-115) mg/dL Calcium 8.9 (8.4-10.2) mg/dL Magnesium 1.8 (1.6-2.6) mg/dL Total Bilirubin 1.6 H (0.0-1.0) mg/dL Direct Bilirubin 0.5 (0.0-0.5) mg/dL AST 346 H (5-37) U/L ALT 147 H (0-40) U/L Alkaline Phosphatase 114 (39-117) U/L Total Protein 6.5 (6.5-8.0) g/dL Albumin 3.8 (3.5-5.0) g/dL Urine Color Yellow Urine Appearance Clear Urine pH 5.5 (5.0-9.0) Ur Specific [place] 1.010 (1.005-1.025) Urine Protein Trace (Neg-Trace) mg/dL Urine Glucose (UA) Negative (Negative) mg/dL Urine Ketones Negative (Negative) mg/dL Urine Blood Trace H (Negative) Urine Nitrite Negative (Negative) Ur Leukocyte Esterase Negative (Negative) Urine RBC 0-2 (0-2) /HPF Urine WBC 0-5 (0-5) /HPF Ur Squamous Epith Cells 0-2 (0-2) /HPF Urine Bacteria None Seen (None Seen) Hyaline Casts 0-2 (0-2) /LPF Urine Opiates Screen (Not Detect) Urine Fentanyl Screen (Not Detect) Ur Barbiturates Screen (Not Detect) Ur Phencyclidine Scrn (Not Detect) Ur Amphetamines Screen (Not Detect) U Benzodiazepines Scrn (Not Detect) Urine Cocaine Screen (Not Detect) U Marijuana (THC) Screen (Not Detect) Ethyl Alcohol < 10 mg/dL 01/14/23 Range/Units 18:30 WBC (4.8-10.8) X10*3/uL RBC (4.60-5.80) X10*6/uL Hgb (14.0-18.0) g/dl Hct (42.0-52.0) % MCV (80.0-98.0) fL MCH (27.0-33.0) pg MCHC (31.0-36.0) g/dl RDW (11.0-16.0) % Plt Count (160-400) X10*3/uL MPV (9.4-12.4) fL Immature Gran % (Auto) (0.0-0.4) % Neut % (Auto) (45-73) % Lymph % (Auto) (20-40) % [place] % (Auto) (2-11) % Eos % (Auto) (0-4) % Baso % (Auto) (0-2) % Lymph # (Auto) (1.2-4.9) X10*3/uL [place] # (Auto) (0.1-1.2) X10*3/uL Eos # (Auto) (0.0-0.4) X10*3/uL Baso # (Auto) (0.0-0.2) X10*3/uL Abs Immat Gran (auto) (0.00-0.03) X10*3/uL Absolute Neuts (auto) (2.0-8.3) x10*3/uL Absolute Nucleated RBC (0.0-0.012) X10*3/uL Nucleated RBC % (auto) (0.0-0.2) /100WBC Sodium (135-145) mmol/L Potassium (3.3-5.1) mmol/L Chloride (96-108) mmol/L Carbon Dioxide (22-29) mmol/L Anion Gap (12-20) BUN (9-16) mg/dL Creatinine (0.5-1.4) mg/dL Estim Creat Clear Calc Estimated GFR Random Glucose (60-115) mg/dL Calcium (8.4-10.2) mg/dL Magnesium (1.6-2.6) mg/dL Total Bilirubin (0.0-1.0) mg/dL Direct Bilirubin (0.0-0.5) mg/dL AST (5-37) U/L ALT (0-40) U/L Alkaline Phosphatase (39-117) U/L Total Protein (6.5-8.0) g/dL Albumin (3.5-5.0) g/dL Urine Color Urine Appearance Urine pH (5.0-9.0) Ur Specific [place] (1.005-1.025) Urine Protein (Neg-Trace) mg/dL Urine Glucose (UA) (Negative) mg/dL Urine Ketones (Negative) mg/dL Urine Blood (Negative) Urine Nitrite (Negative) Ur Leukocyte Esterase (Negative) Urine RBC (0-2) /HPF Urine WBC (0-5) /HPF Ur Squamous Epith Cells (0-2) /HPF Urine Bacteria (None Seen) Hyaline Casts (0-2) /LPF Urine Opiates Screen POSITIVE H (Not Detect) Urine Fentanyl Screen POSITIVE H (Not Detect) Ur Barbiturates Screen Not Detected (Not Detect) Ur Phencyclidine Scrn Not Detected (Not Detect) Ur Amphetamines Screen Not Detected (Not Detect) U Benzodiazepines Scrn Not Detected (Not Detect) Urine Cocaine Screen POSITIVE H (Not Detect) U Marijuana (THC) Screen POSITIVE H (Not Detect) Ethyl Alcohol mg/dL <Erma Velez MD - Last Filed: 01/14/23 23:31> Independent Historian Clinical information obtained from an independent historian. History obtained from or confirmed by: EMS <SHANON Almendarez - Last Filed: 01/14/23 16:38> External Record Review External record reviewed: Outpatient record and Prior outpatient labs <SHANON Almendarez - Last Filed: 01/14/23 16:38> Prescription Management I considered prescription management with: Other (narcan) <SHANON Almendarez - Last Filed: 01/14/23 16:38> Discharge Plan Discharge Clinical Impression: Opioid use disorder, Overdose <SHANON Almendarez - Last Filed: 01/14/23 16:38> Patient Disposition: Home, Self-Care <SHANON Almendarez - Last Filed: 01/14/23 16:38> Instructions: Polysubstance Abuse (ED), Adult Overdose (ED) <SHANON Almendarez - Last Filed: 01/14/23 16:38> Additional Instructions: Follow-up with primary care provider Return to the ER for any worsening symptoms. <SHANON Almendarez - Last Filed: 01/14/23 16:38> Prescriptions: No Action risperidone [Risperdal] 2 mg tablet 1 tab PO BEDTIME prazosin 2 mg capsule 1 cap PO BEDTIME clonazepam 1 mg tablet 1 tab PO BID PRN (Reason: Anxiety) benztropine 1 mg tablet 1 tab PO BEDTIME sulfamethoxazole-trimethoprim [Bactrim DS] 800-160 mg tablet 1 tab PO BID Qty: 14 0RF sertraline 100 mg Tablet 100 mg PO DAILY 30 Days Qty: 30 0RF methadone [Methadose] 10 mg/mL Concentrate 75 mg PO DAILY Qty: 0 0RF Rx Instructions: Partial Fill upon patient request. <SHANON Almendarez - Last Filed: 01/14/23 16:38>
--- NOTE | 2023-01-14 15:11 | PC.NURSE ---
pt a&ox3, O2 in high 80s on RA, 90s on 2L, reports taking a bag of heroin with a pint of vodka this morning, pt awakens with verbal prompting but is nodding off in room, playground monitor applied, pt changed over and belongings secured in decon, denies SI/HI. no new orders at this time.
[2023-01-14 15:40] LABS: MANUAL DIFF FLAG NO
[2023-01-14 15:41] LABS: Basophils Percent Auto 0.4 % (0-2); Eosinophils Percent Auto 0.3 % (0-4); Hematocrit 36.8 % (42.0-52.0); Hemoglobin 12.9 g/dl (14.0-18.0); Imm Gran Abs Auto 0.04 X10*3/uL (0.00-0.03); Imm Gran Pct Auto 0.4 % (0.0-0.4); Lymphocytes Percent Auto 21.2 % (20-40); Mean Corpuscular HGB Conc 35.1 g/dl (31.0-36.0); Mean Corpuscular Hemoglobin 29.8 pg (27.0-33.0); Mean Platelet Volume 8.9 fL (9.4-12.4); Monocytes Absolute Auto 0.7 X10*3/uL (0.1-1.2); Monocytes Percent Auto 7.6 % (2-11); Neutrophils Absolute Auto 6.5 x10*3/uL (2.0-8.3); Neutrophils Percent Auto 70.1 % (45-73); Platelet Count 207 X10*3/uL (160-400); Red Blood Count 4.33 X10*6/uL (4.60-5.80); Red Cell Distribution Width 13.5 % (11.0-16.0); White Blood Count 9.2 X10*3/uL (4.8-10.8)
[2023-01-14 16:12] LABS: Alanine Aminotransferase 147 U/L (0-40); Albumin Level 3.8 g/dL (3.5-5.0); Alkaline Phosphatase 114 U/L (39-117); Anion Gap 12 (12-20); Aspartate Amino Transferase 346 U/L (5-37); Bilirubin Direct 0.5 mg/dL (0.0-0.5); Bilirubin Total 1.6 mg/dL (0.0-1.0); Blood Urea Nitrogen 7 mg/dL (9-16); Calcium 8.9 mg/dL (8.4-10.2); Carbon Dioxide 28 mmol/L (22-29); Chloride 96 mmol/L (96-108); Creatinine Clr Calc Pharmacy 123.9; Estimated Glomerular Filt Rate > 60; Ethanol < 10 mg/dL; Glucose Random 124 mg/dL (60-115); Magnesium 1.8 mg/dL (1.6-2.6); Potassium 3.4 mmol/L (3.3-5.1); Sodium 133 mmol/L (135-145); Total Protein 6.5 g/dL (6.5-8.0)
--- NOTE | 2023-01-14 16:33 | MHC.RECOVSUP ---
? Reason for consult Recovery support o Current location: ED19 o Identified substance use concern: Heroin - Support ? Intervention: o Community resources provided o Harm reduction discussion ? Plan: o Patient to follow up with [facility] after discharge ? Additional information: Met with patient and we talk recovery and harm reduction... Patient did not want any services at the Moment, but stated that he know where to go if he Changes his mind..
--- NOTE | 2023-01-14 16:34 | HO.SUDE ---
This editorial writer met with patient. Patient reports no illicit opiate use or ETOH use. Patient reports is on prescription medications. Patient falling asleep during this writers assessment. Per [employer] Lab Manager and sales account director, patient had reported using 1 bag heroin ETL ARCHITECT. Patient given snacks, encouraged to meet w/ [employer] Lab Manager if any questions/concerns about support/options.
[2023-01-14 18:39] LABS: Appearance Urine Clear; Color Urine Yellow; Glucose Urine UA Negative (Negative); Leukocyte Esterase Urine Negative (Negative); Nitrite Urine Negative (Negative); PH 5.5 (5.0-9.0); UMIC TRIGGER UACC YES; Urine Blood Trace (Negative); Urine Ketones Negative (Negative); Urine Protein Trace mg/dL (Neg-Trace)
[2023-01-14 18:44] LABS: Bacteria Urine None Seen (None Seen); Hyaline Casts Urine 0-2 /LPF (0-2); RBC Urine 0-2 /HPF (0-2); Squamous Epithelial Cell Urine 0-2 /HPF (0-2); WBC Urine 0-5 /HPF (0-5)
[2023-01-14 18:50] LABS: Amphetamine Screen Urine Not Detected (Not Detect); Barbiturates, Urine Not Detected (Not Detect); Benzodiazepines Screen Urine Not Detected (Not Detect); Cannabinoid Screen Urine POSITIVE (Not Detect); Cocaine Screen Urine POSITIVE (Not Detect); Fentanyl, urine POSITIVE (Not Detect); Opiate Screen Urine POSITIVE (Not Detect); Phencyclidine Screen Urine Not Detected (Not Detect)
--- NOTE | 2023-01-14 19:22 | PC.NURSE ---
pt remains sleeping, vss, rousable to name. no new orders at this time.
--- NOTE | 2023-01-14 22:13 | PC.NURSE ---
pt sleeping, vss - O2 stable on RA, per note pt declined recovery services. no new orders at this time, remains under physician obs until able to safely discharge.
[2023-01-14] MEDS: Naloxone HCl Nasal TAKE HOME 4 MG SPRAY NOSTRILALT (23:38)
--- NOTE | 2023-01-14 23:40 | PC.NURSE ---
This parts data writer assumed care of this Pt at 2300. Pt A&Ox3, denies any pain, calm and cooperative, denies SI/HI. Pt ambulating independently with steady gait, tolerating PO fluids and sandwich. Pt requesting to be D/C, Dr. Velez notified. Take home narcan given with D/C papers, Pt walked to [facility] room for belongings.
== END 2023-01-14 23:55 | disposition home or self-care (01) ==
PROVIDERS: Physician Assistant; Emergency Provider Emergency Medicine
DX: R53.83 Other fatigue (principal); R09.02 Hypoxemia; T40.1X1A Poisoning by heroin, accidental (unintentional), initial encounter; Y92.480 Sidewalk as the place of occurrence of the external cause; F11.20 Opioid dependence, uncomplicated; B19.20 Unspecified viral hepatitis C without hepatic coma; F25.1 Schizoaffective disorder, depressive type; F43.10 Post-traumatic stress disorder, unspecified; F19.10 Other psychoactive substance abuse, uncomplicated; F17.210 Nicotine dependence, cigarettes, uncomplicated; Z79.899 Other long term (current) drug therapy
CPT/HCPCS: 36415; 80048; 80076; 80307; 81001; 83735; 85025; 99285

== ENCOUNTER 2023-01-15 10:41 | Emergency (ER) | payer OTHER, MEDICAID, SELFPAY ==
[2023-01-15 10:49] VITALS: BP 103/62; PULSE 84; RESP 17; TEMP 36.6; O2SAT 99; BMI 32.3
--- NOTE | 2023-01-15 11:14 | ED_ITS ---
HPI - General Adult General Chief complaint: Psychiatric Symptoms <Rochelle Easley NP - Last Filed: 01/15/23 13:54> Stated complaint: SI/OD <Rochelle Easley NP - Last Filed: 01/15/23 13:54> Time Seen by Provider: 01/15/23 11:13 <Rochelle Easley NP - Last Filed: 01/15/23 13:54> Source: patient <Rochelle Easley NP - Last Filed: 01/15/23 13:54> Mode of arrival: ambulatory <Rochelle Easley NP - Last Filed: 01/15/23 13:54> Limitations: no limitations <Rochelle Easley NP - Last Filed: 01/15/23 13:54> History of Present Illness HPI narrative: Patient is a 42-year-old male with history of opioid use disorder, cocaine use disorder, alcohol use disorder, PTSD, hepatitis C, and schizoaffective disorder presenting to the emergency department with reported suicidal ideation. He states that he used 3 bundles of heroin, as well as cocaine, and alcohol earlier today in an attempt to overdose and end his life. He reports that a bystander administered Narcan to him. He denies any homicidal ideation. He was seen in this department yesterday for opioid use disorder after being found outside minimally responsive. Today he appears drowsy but is able to maintain a conversation. He states that he is interested in detox. He denies any other c omplaints. <Rochelle Easley NP - Last Filed: 01/15/23 13:54> Related Data Home medications: Home Medications Medication Instructions Recorded Confirmed benztropine 1 mg tablet 1 tab PO BEDTIME 10/05/21 01/15/23 clonazepam 1 mg tablet 1 tab PO BID PRN Anxiety 10/05/21 01/15/23 prazosin 2 mg capsule 1 cap PO BEDTIME 10/05/21 01/15/23 risperidone 2 mg tablet (Risperdal) 1 tab PO BEDTIME 10/05/21 01/15/23 Previous Rx's Medication Instructions Recorded methadone 10 mg/mL oral 75 mg (7.5 mL) PO DAILY #0 mL 10/07/22 concentrate (Methadose) sertraline 100 mg tablet 100 mg PO DAILY 30 days #30 tabs 10/07/22 sulfamethoxazole 800 1 tab PO BID #14 tabs 10/14/22 mg-trimethoprim 160 mg tablet (Bactrim DS) <Rochelle Easley NP - Last Filed: 01/15/23 13:54> Allergies/adverse reactions: Allergies Allergy/AdvReac Type Severity Reaction Status Date / Time haloperidol [From Haldol] AdvReac Unknown Verified 01/15/23 12:09 <Rochelle Easley NP - Last Filed: 01/15/23 13:54> Review of Systems Review of Systems: As per HPI. <Rochelle Easley NP - Last Filed: 01/15/23 13:54> Yes all other systems are reviewed and are negative <Rochelle Easley NP - Last Filed: 01/15/23 13:54> PMFSH Past Medical History Medical History: Medical History Alcohol use disorder Anemia Cocaine use disorder Hepatitis C Opioid use disorder PTSD (post-traumatic stress disorder) Schizoaffective disorder, depressive type Substance abuse <Rochelle Easley NP - Last Filed: 01/15/23 13:54> Social History Social History: Social History Household Members: None Housing: Homeless Do you presently have visiting nurse or other home services: No Alcohol intake: current Alcohol intake frequency: 3 or more drinks per day Alcohol type: hard liquor Patient Tobacco Use Status: Current everyday Tobacco user Tobacco use type: Cigarette Cigarette Packs Per Day: 1 Cigarettes Per Day: 20.0 Years Smoked: 4 e-Cigarette/Vaping Use: Currently Using Second Hand Smoke Exposure: No Use of substances other than those prescribed or required for medical reasons: Yes Substance Use Type: Heroin and Other Substance Use Frequency: Chronic Longstanding Last Used Substance: Just Prior to Admission Any prior treatment program specific to substance use: No ([facility]) Advance Directives: No Advance Directives Information Provided: Yes Healthcare Proxy: No Guardian: No service: No Sexual orientation: Straight/Heterosexual <Rochelle Easley NP - Last Filed: 01/15/23 13:54> Physical Exam ED Vital Signs: Vital Signs - 24 hr 01/15/23 19:56 01/16/23 05:31 Temperature 97.7 F 97.8 F Pulse Rate 76 59 Respiratory Rate 14 16 Blood Pressure 110/66 106/64 Pulse Oximetry 98 95 Oxygen Delivery Method Room Air Room Air BMI result Body Mass Index 32.3 Vital signs have been reviewed and appear to be correct. Blood pressure normal. Heart rate normal. Respiratory rate normal. Temperature normal. Oxygen saturation normal. <Rochelle Easley NP - Last Filed: 01/15/23 13:54> Vital Signs - 24 hr 01/15/23 19:56 01/16/23 05:31 Temperature 97.7 F 97.8 F Pulse Rate 76 59 Respiratory Rate 14 16 Blood Pressure 110/66 106/64 Pulse Oximetry 98 95 Oxygen Delivery Method Room Air Room Air BMI result Body Mass Index 32.3 <Gael Quintana MD - Last Filed: 01/16/23 15:35> Const General: cooperative, no acute distress, alert, awake and other (appears drowsy but is able to maintain a conversation) <Rochelle Easley NP - Last Filed: 01/15/23 13:54> Nutritional Appearance: average body habitus <JESSENIA Davis Last Filed: 01/15/23 13:54> Orientation/consciousness: patient oriented x3 <JESSENIA Davis Last Filed: 01/15/23 13:54> HENWA Head: Yes normocephalic and Yes atraumatic <JESSENIA Davis Last Filed: 01/15/23 13:54> Ears: external ears normal <Rochelle Easley NP - Last Filed: 01/15/23 13:54> General nose exam: Normal external nose present <JESSENIA Davis Last Filed: 01/15/23 13:54> Mouth: Normal oral and palatal mucosa present and oropharynx normal <JESSENIA Davis Last Filed: 01/15/23 13:54> Throat: Yes uvula midline <JESSENIA Davis Last Filed: 01/15/23 13:54> Eyes Pupils: Equal, round and reactive pupils present <JESSENIA Davis Last Filed: 01/15/23 13:54> EOM: EOMs intact bilaterally <Rochelle Easley NP - Last Filed: 01/15/23 13:54> Neck Neck: Yes normal visual inspection, Yes full ROM and Yes supple <Rochelle Easley NP - Last Filed: 01/15/23 13:54> Chest Chest palpation & inspection: normal inspection of the chest <Rochelle Easley NP - Last Filed: 01/15/23 13:54> Resp Effort & Inspection: normal respiratory effort <Rochelle Easley NP - Last Filed: 01/15/23 13 :54> Auscultation: clear to auscultation bilaterally <Rochelle Easley NP - Last Filed: 01/15/23 13:54> Cardio Rate: regular rate <Rochelle Easley NP - Last Filed: 01/15/23 13:54> Rhythm: regular rhythm <Rochelle Easley NP - Last Filed: 01/15/23 13:54> Heart sounds: S1 normal heart sound present and S2 normal heart sound present <Rochelle Easley NP - Last Filed: 01/15/23 13:54> GI Inspection: Yes normal to inspection <Rochelle Easley NP - Last Filed: 01/15/23 13:54> Palpation (GI): Soft to palpation and nontender <Rochelle Easley NP - Last Filed: 01/15/23 13:54> General: Yes no CVA tenderness <Rochelle Easley NP - Last Filed: 01/15/23 13:54> Back/Spine/Pelvis Back: no CVA tenderness <Rochelle Easley NP - Last Filed: 01/15/23 13:54> Skin General skin exam: no rashes or lesions noted, elasticity normal and turgor normal <JESSENIA Davis Last Filed: 01/15/23 13:54> Neuro General: patient oriented x3, gait normal, moves all extremities and CN's II-XI intact bilaterally <JESSENIA Davis Last Filed: 01/15/23 13:54> Cranial nerves: Yes Equal, round and reactive pupils present <JESSENIA Davis Last Filed: 01/15/23 13:54> Extrem General: Yes normal to inspection and Yes full ROM <JESSENIA Davis Last Filed: 01/15/23 13:54> Psych Appearance: disheveled <JESSENIA Davis Last Filed: 01/15/23 13:54> Mental Status: mental status grossly normal <JESSENIA Davis Last Filed: 01/15/23 13:54> Speech and movement: Normal speech and movement present <JESSENIA Davis Last Filed: 01/15/23 13:54> Affect: normal affect <JESSENIA Davis Last Filed: 01/15/23 13:54> Attitude: cooperative <JESSENIA Davis Last Filed: 01/15/23 13:54> Thought process: Normal thought process present <JESSENIA Davis Last Filed: 01/15/23 13:54> Thought content: Suicidality present, no homicidality, no delusions, no hallucinations and Depressive thoughts present <JESSENIA Davis Last Filed: 01/15/23 13:54> Insight: Fair insight present (Psych) <JESSENIA Davis Last Filed: 01/15/23 13:54> Judgement: Fair judgement present (Psych) <JESSENIA Davis Last Filed: 01/15/23 13:54> Course Course Course Narrative: 13:49 Alcohol level <10, patient awake, alert, ambulating independently with steady gait around BH unit, maintainting his airway independently. Medically cleared, will place in physician obs, refer to care team. <JESSENIA Davis Last Filed: 01/15/23 13:54> Reevaluation(s) Reevaluation #1: physician observation: patient needs time to see if he is still suicidal and alcohol abuse. He is a reevaluation this morning and hopefully discharged today. patient had an uneventful evening. <Gael Quintana MD - Last Filed: 01/16/23 15:35> Time: 07:28 <Gael Quintana MD - Last Filed: 01/16/23 15:35> Reevaluation #2: cleared by recovery will dc home <Gael Quintana MD - Last Filed: 01/16/23 15:35> Time: 15:32 <Gael Quintana MD - Last Filed: 01/16/23 15:35> Medical Decision Making Medical Decision Making [facility] Narrative: Patient is a 42-year-old male with history of opioid use disorder, cocaine use disorder, alcohol use disorder, PTSD, hepatitis C, and schizoaffective disorder presenting to the emergency department with reported use of heroin, cocaine, and alcohol as well as suicidal ideation. On exam patient is awake, drowsy but able to maintain conversation, VS WNL, protecting his airway, afebrile, reporting SI and requesting detox. Physical exam findings and reported history are consistent with intoxication, and anticipate patient will require evaluation by the Care team. Differential includes SI, anxiety, depression. Plan: labs, Utox, reassessment, referral to Care team <Rochelle Easley NP - Last Filed: 01/15/23 13:54> Differential Diagnosis Differential Diagnoses: The differential diagnosis associated with the presentation includes <Rochelle Easley NP - Last Filed: 01/15/23 13:54> As above <Rochelle Easley NP - Last Filed: 01/15/23 13:54> Admission/Observation Consideration of admission/observation: Escalation of care including admission/observation considered (patinet with active substance use and psych issues and was considered for admission) <Gael Quintana MD - Last Filed: 01/16/23 15:35> Consult Healthcare Provider Management of the patient was discussed with: Behavioral Health Provider <Gael Quintana MD - Last Filed: 01/16/23 15:35> Lab Data [facility] Lab Attestation statement: I reviewed the patient's lab results. <Rochelle Easley NP - Last Filed: 01/15/23 13:54> I reviewed the patient's lab results. <Gael Quintana MD - Last Filed: 01/16/23 15:35> Result Diagrams: 01/15/23 11:31 01/15/23 11:31 <Rochelle Easley NP - Last Filed: 01/15/23 13:54> Labs: Lab Results 01/15/23 01/15/23 01/15/23 Range/Units 11:31 11:31 18:52 WBC 7.4 (4.8-10.8) X10*3/uL RBC 4.44 L (4.60-5.80) X10*6/uL Hgb 13.0 L (14.0-18.0) g/dl Hct 37.8 L (42.0-52.0) % MCV 85.1 (80.0-98.0) fL MCH 29.3 (27.0-33.0) pg MCHC 34.4 (31.0-36.0) g/dl RDW 13.5 (11.0-16.0) % Plt Count 189 (160-400) X10*3/uL MPV 8.7 L (9.4-12.4) fL Immature Gran % (Auto) 0.3 (0.0-0.4) % Neut % (Auto) 56.8 (45-73) % Lymph % (Auto) 30.5 (20-40) % [place] % (Auto) 9.1 (2-11) % Eos % (Auto) 2.8 (0-4) % Baso % (Auto) 0.5 (0-2) % Lymph # (Auto) 2.3 (1.2-4.9) X10*3/uL [place] # (Auto) 0.7 (0.1-1.2) X10*3/uL Eos # (Auto) 0.2 (0.0-0.4) X10*3/uL Baso # (Auto) 0.0 (0.0-0.2) X10*3/uL Abs Immat Gran (auto) 0.02 (0.00-0.03) X10*3/uL Absolute Neuts (auto) 4.2 (2.0-8.3) x10*3/uL Absolute Nucleated RBC 0.000 (0.0-0.012) X10*3/uL Nucleated RBC % (auto) 0.0 (0.0-0.2) /100WBC Sodium 137 (135-145) mmol/L Potassium 3.5 (3.3-5.1) mmol/L Chloride 98 (96-108) mmol/L Carbon Dioxide 27 (22-29) mmol/L Anion Gap 16 (12-20) BUN 7 L (9-16) mg/dL Creatinine 0.73 (0.5-1.4) mg/dL Estim Creat Clear Calc 140.4 Estimated GFR > 60 Random Glucose 121 H (60-115) mg/dL Calcium 8.8 (8.4-10.2) mg/dL Total Bilirubin 1.1 H (0.0-1.0) mg/dL AST 417 H (5-37) U/L ALT 175 H (0-40) U/L Alkaline Phosphatase 104 (39-117) U/L Total Protein 6.4 L (6.5-8.0) g/dL Albumin 3.6 (3.5-5.0) g/dL Salicylates < 5.0 L (15-30) mg/dL Urine Opiates Screen Not Detected (Not Detect) Urine Fentanyl Screen POSITIVE H (Not Detect) Acetaminophen < 17 (<30) mcg/mL Ur Barbiturates Screen Not Detected (Not Detect) Ur Phencyclidine Scrn Not Detected (Not Detect) Ur Amphetamines Screen Not Detected (Not Detect) U Benzodiazepines Scrn Not Detected (Not Detect) Urine Cocaine Screen POSITIVE H (Not Detect) U Marijuana (THC) Screen POSITIVE H (Not Detect) Ethyl Alcohol < 10 mg/dL COVID-19 (TRUNG) (Negative) COVID-19 Clin Com 01/15/23 Range/Units 21:44 WBC (4.8-10.8) X10*3/uL RBC (4.60-5.80) X10*6/uL Hgb (14.0-18.0) g/dl Hct (42.0-52.0) % MCV (80.0-98.0) fL MCH (27.0-33.0) pg MCHC (31.0-36.0) g/dl RDW (11.0-16.0) % Plt Count (160-400) X10*3/uL MPV (9.4-12.4) fL Immature Gran % (Auto) (0.0-0.4) % Neut % (Auto) (45-73) % Lymph % (Auto) (20-40) % [place] % (Auto) (2-11) % Eos % (Auto) (0-4) % Baso % (Auto) (0-2) % Lymph # (Auto) (1.2-4.9) X10*3/uL [place] # (Auto) (0.1-1.2) X10*3/uL Eos # (Auto) (0.0-0.4) X10*3/uL Baso # (Auto) (0.0-0.2) X10*3/uL Abs Immat Gran (auto) (0.00-0.03) X10*3/uL Absolute Neuts (auto) (2.0-8.3) x10*3/uL Absolute Nucleated RBC (0.0-0.012) X10*3/uL Nucleated RBC % (auto) (0.0-0.2) /100WBC Sodium (135-145) mmol/L Potassium (3.3-5.1) mmol/L Chloride (96-108) mmol/L Carbon Dioxide (22-29) mmol/L Anion Gap (12-20) BUN (9-16) mg/dL Creatinine (0.5-1.4) mg/dL Estim Creat Clear Calc Estimated GFR Random Glucose (60-115) mg/dL Calcium (8.4-10.2) mg/dL Total Bilirubin (0.0-1.0) mg/dL AST (5-37) U/L ALT (0-40) U/L Alkaline Phosphatase (39-117) U/L Total Protein (6.5-8.0) g/dL Albumin (3.5-5.0) g/dL Salicylates (15-30) mg/dL Urine Opiates Screen (Not Detect) Urine Fentanyl Screen (Not Detect) Acetaminophen (<30) mcg/mL Ur Barbiturates Screen (Not Detect) Ur Phencyclidine Scrn (Not Detect) Ur Amphetamines Screen (Not Detect) U Benzodiazepines Scrn (Not Detect) Urine Cocaine Screen (Not Detect) U Marijuana (THC) Screen (Not Detect) Ethyl Alcohol mg/dL COVID-19 (TRUNG) Negative (Negative) COVID-19 Clin Com See Note <Rochelle Tovaranski, [employer]ER - Last Filed: 01/15/23 13:54> Lab Results 01/15/23 01/15/23 01/15/23 Range/Units 11:31 11:31 18:52 WBC 7.4 (4.8-10.8) X10*3/uL RBC 4.44 L (4.60-5.80) X10*6/uL Hgb 13.0 L (14.0-18.0) g/dl Hct 37.8 L (42.0-52.0) % MCV 85.1 (80.0-98.0) fL MCH 29.3 (27.0-33.0) pg MCHC 34.4 (31.0-36.0) g/dl RDW 13.5 (11.0-16.0) % Plt Count 189 (160-400) X10*3/uL MPV 8.7 L (9.4-12.4) fL Immature Gran % (Auto) 0.3 (0.0-0.4) % Neut % (Auto) 56.8 (45-73) % Lymph % (Auto) 30.5 (20-40) % [place] % (Auto) 9.1 (2-11) % Eos % (Auto) 2.8 (0-4) % Baso % (Auto) 0.5 (0-2) % Lymph # (Auto) 2.3 (1.2-4.9) X10*3/uL [place] # (Auto) 0.7 (0.1-1.2) X10*3/uL Eos # (Auto) 0.2 (0.0-0.4) X10*3/uL Baso # (Auto) 0.0 (0.0-0.2) X10*3/uL Abs Immat Gran (auto) 0.02 (0.00-0.03) X10*3/uL Absolute Neuts (auto) 4.2 (2.0-8.3) x10*3/uL Absolute Nucleated RBC 0.000 (0.0-0.012) X10*3/uL Nucleated RBC % (auto) 0.0 (0.0-0.2) /100WBC Sodium 137 (135-145) mmol/L Potassium 3.5 (3.3-5.1) mmol/L Chloride 98 (96-108) mmol/L Carbon Dioxide 27 (22-29) mmol/L Anion Gap 16 (12-20) BUN 7 L (9-16) mg/dL Creatinine 0.73 (0.5-1.4) mg/dL Estim Creat Clear Calc 140.4 Estimated GFR > 60 Random Glucose 121 H (60-115) mg/dL Calcium 8.8 (8.4-10.2) mg/dL Total Bilirubin 1.1 H (0.0-1.0) mg/dL AST 417 H (5-37) U/L ALT 175 H (0-40) U/L Alkaline Phosphatase 104 (39-117) U/L Total Protein 6.4 L (6.5-8.0) g/dL Albumin 3.6 (3.5-5.0) g/dL Salicylates < 5.0 L (15-30) mg/dL Urine Opiates Screen Not Detected (Not Detect) Urine Fentanyl Screen POSITIVE H (Not Detect) Acetaminophen < 17 (<30) mcg/mL Ur Barbiturates Screen Not Detected (Not Detect) Ur Phencyclidine Scrn Not Detected (Not Detect) Ur Amphetamines Screen Not Detected (Not Detect) U Benzodiazepines Scrn Not Detected (Not Detect) Urine Cocaine Screen POSITIVE H (Not Detect) U Marijuana (THC) Screen POSITIVE H (Not Detect) Ethyl Alcohol < 10 mg/dL COVID-19 (TRUNG) (Negative) COVID-19 Clin Com 01/15/23 Range/Units 21:44 WBC (4.8-10.8) X10*3/uL RBC (4.60-5.80) X10*6/uL Hgb (14.0-18.0) g/dl Hct (42.0-52.0) % MCV (80.0-98.0) fL MCH (27.0-33.0) pg MCHC (31.0-36.0) g/dl RDW (11.0-16.0) % Plt Count (160-400) X10*3/uL MPV (9.4-12.4) fL Immature Gran % (Auto) (0.0-0.4) % Neut % (Auto) (45-73) % Lymph % (Auto) (20-40) % [place] % (Auto) (2-11) % Eos % (Auto) (0-4) % Baso % (Auto) (0-2) % Lymph # (Auto) (1.2-4.9) X10*3/uL [place] # (Auto) (0.1-1.2) X10*3/uL Eos # (Auto) (0.0-0.4) X10*3/uL Baso # (Auto) (0.0-0.2) X10*3/uL Abs Immat Gran (auto) (0.00-0.03) X10*3/uL Absolute Neuts (auto) (2.0-8.3) x10*3/uL Absolute Nucleated RBC (0.0-0.012) X10*3/uL Nucleated RBC % (auto) (0.0-0.2) /100WBC Sodium (135-145) mmol/L Potassium (3.3-5.1) mmol/L Chloride (96-108) mmol/L Carbon Dioxide (22-29) mmol/L Anion Gap (12-20) BUN (9-16) mg/dL Creatinine (0.5-1.4) mg/dL Estim Creat Clear Calc Estimated GFR Random Glucose (60-115) mg/dL Calcium (8.4-10.2) mg/dL Total Bilirubin (0.0-1.0) mg/dL AST (5-37) U/L ALT (0-40) U/L Alkaline Phosphatase (39-117) U/L Total Protein (6.5-8.0) g/dL Albumin (3.5-5.0) g/dL Salicylates (15-30) mg/dL Urine Opiates Screen (Not Detect) Urine Fentanyl Screen (Not Detect) Acetaminophen (<30) mcg/mL Ur Barbiturates Screen (Not Detect) Ur Phencyclidine Scrn (Not Detect) Ur Amphetamines Screen (Not Detect) U Benzodiazepines Scrn (Not Detect) Urine Cocaine Screen (Not Detect) U Marijuana (THC) Screen (Not Detect) Ethyl Alcohol mg/dL COVID-19 (TRUNG) Negative (Negative) COVID-19 Clin Com See Note <Gael Quintana MD - Last Filed: 01/16/23 15:35> External Record Review External record reviewed: Inpatient record, Office record and Outpatient record <Rochelle Easley NP - Last Filed: 01/15/23 13:54> Chronic Conditions Patient?s care impacted by: Other (PATTIE) <Rochelle Easley NP - Last Filed: 01/15/23 13:54> Discharge Plan Discharge Clinical Impression: Cocaine use disorder, Opioid use disorder, Alcohol use disorder, Schizoaffective disorder, depressive type Depression Qualifiers: Depression Type: major depressive disorder Major depression recurrence: recurrent Active/Remission status: remission status unspecified Qualified Code(s): F33.9 - Major depressive disorder, recurrent, unspecified <Rochelle Easley NP - Last Filed: 01/15/23 13:54> Patient Disposition: Home, Self-Care <Rochelle Easley NP - Last Filed: 01/15/23 13:54> Instructions: Polysubstance Abuse (ED) <Rochelle Easley NP - Last Filed: 01/15/23 13:54> Prescriptions: No Action risperidone [Risperdal] 2 mg tablet 1 tab PO BEDTIME prazosin 2 mg capsule 1 cap PO BEDTIME clonazepam 1 mg tablet 1 tab PO BID PRN (Reason: Anxiety) benztropine 1 mg tablet 1 tab PO BEDTIME sulfamethoxazole-trimethoprim [Bactrim DS] 800-160 mg tablet 1 tab PO BID Qty: 14 0RF sertraline 100 mg Tablet 100 mg PO DAILY 30 Days Qty: 30 0RF methadone [Methadose] 10 mg/mL Concentrate 75 mg PO DAILY Qty: 0 0RF Rx Instructions: Pt reports not taking <Rochelle Easley NP - Last Filed: 01/15/23 13:54> Referrals: Gautam Macdonald MD [Primary Care Provider] - 5 days <Rochelle Easley NP - Last Filed: 01/15/23 13:54> Interventions: [place]-Suicide Risk Severity Scale Last Done: 01/16/23 09:36 <Rochelle Easley NP - Last Filed: 01/15/23 13:54>
[2023-01-15 11:39] LABS: MANUAL DIFF FLAG NO
[2023-01-15 11:40] LABS: Basophils Percent Auto 0.5 % (0-2); Eosinophils Absolute Auto 0.2 X10*3/uL (0.0-0.4); Eosinophils Percent Auto 2.8 % (0-4); Hematocrit 37.8 % (42.0-52.0); Imm Gran Abs Auto 0.02 X10*3/uL (0.00-0.03); Imm Gran Pct Auto 0.3 % (0.0-0.4); Lymphocytes Absolute Auto 2.3 X10*3/uL (1.2-4.9); Lymphocytes Percent Auto 30.5 % (20-40); Mean Corpuscular HGB Conc 34.4 g/dl (31.0-36.0); Mean Corpuscular Hemoglobin 29.3 pg (27.0-33.0); Mean Corpuscular Volume 85.1 fL (80.0-98.0); Mean Platelet Volume 8.7 fL (9.4-12.4); Monocytes Absolute Auto 0.7 X10*3/uL (0.1-1.2); Monocytes Percent Auto 9.1 % (2-11); Neutrophils Absolute Auto 4.2 x10*3/uL (2.0-8.3); Neutrophils Percent Auto 56.8 % (45-73); Platelet Count 189 X10*3/uL (160-400); Red Blood Count 4.44 X10*6/uL (4.60-5.80); Red Cell Distribution Width 13.5 % (11.0-16.0); White Blood Count 7.4 X10*3/uL (4.8-10.8)
--- NOTE | 2023-01-15 12:09 | PC.NURSE ---
Pt came in high on Heroin. Pt reports SI with intention to OD. He has not been taking Methadone and would like to Detox. Denies VH, AH. Pt ate a sandwich and has been hydrated.
[2023-01-15 12:22] LABS: Alanine Aminotransferase 175 U/L (0-40); Albumin Level 3.6 g/dL (3.5-5.0); Alkaline Phosphatase 104 U/L (39-117); Anion Gap 16 (12-20); Aspartate Amino Transferase 417 U/L (5-37); Bilirubin Total 1.1 mg/dL (0.0-1.0); Blood Urea Nitrogen 7 mg/dL (9-16); Calcium 8.8 mg/dL (8.4-10.2); Carbon Dioxide 27 mmol/L (22-29); Chloride 98 mmol/L (96-108); Creatinine Clr Calc Pharmacy 140.4; Estimated Glomerular Filt Rate > 60; Ethanol < 10 mg/dL; Glucose Random 121 mg/dL (60-115); Potassium 3.5 mmol/L (3.3-5.1); Sodium 137 mmol/L (135-145); Total Protein 6.4 g/dL (6.5-8.0)
[2023-01-15 12:24] LABS: Acetaminophen LAB < 17 mcg/mL (<30); Salicylate < 5.0 mg/dL (15-30)
[2023-01-15 19:14] LABS: Amphetamine Screen Urine Not Detected (Not Detect); Barbiturates, Urine Not Detected (Not Detect); Benzodiazepines Screen Urine Not Detected (Not Detect); Cannabinoid Screen Urine POSITIVE (Not Detect); Cocaine Screen Urine POSITIVE (Not Detect); Fentanyl, urine POSITIVE (Not Detect); Opiate Screen Urine Not Detected (Not Detect); Phencyclidine Screen Urine Not Detected (Not Detect)
[2023-01-15 19:56] VITALS: BP 110/66; PULSE 76; RESP 14; TEMP 36.5; O2SAT 98
[2023-01-15 22:05] LABS: COVID-19 Test Negative (Negative); IDNOW Serial# 08D9AD1C
[2023-01-16 05:31] VITALS: BP 106/64; PULSE 59; RESP 16; TEMP 36.6; O2SAT 95
--- NOTE | 2023-01-16 13:17 | MHC.RECOVSUP ---
Met with pt in [facility] for potential ATS bed search. PT reports drinking about 3-6 beers and injecting about 3 bags of heroin a day. Pt states he has been using since he got out of [facility] about 3 weeks ago. Pt had been on Methadone in the past but is not interested in it going forward. Pt is interested in ATS and has no other questions or concerns at this time. ATS bed search in process.
--- NOTE | 2023-01-16 16:01 | MHC.RECOVSUP ---
Pt no longer interested in ATS. T/W provided pt with recovery resources.
== END 2023-01-16 15:52 | disposition home or self-care (01) ==
PROVIDERS: Registered Nurse Emergency; Emergency Provider Emergency Medicine; PCP Psychiatry & Neurology Psychiatry
DX: F25.1 Schizoaffective disorder, depressive type (principal); F14.10 Cocaine abuse, uncomplicated; F10.10 Alcohol abuse, uncomplicated; Y90.0 Blood alcohol level of less than 20 mg/100 ml; F11.10 Opioid abuse, uncomplicated; Z20.822 Contact with and (suspected) exposure to COVID-19; Z20.828 Contact with and (suspected) exposure to other viral communicable diseases; Z79.899 Other long term (current) drug therapy
CPT/HCPCS: 36415; 80053; 80143; 80179; 80307; 85025; 87635; 99284; S9485

== ENCOUNTER 2023-06-15 02:06 | Emergency (ER) | payer OTHER, SELFPAY ==
[2023-06-15 02:09] VITALS: BP 164/100; PULSE 96; O2SAT 98
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
[2023-06-15 02:14] VITALS: BP 126/82; PULSE 92; RESP 16; TEMP 36.8; O2SAT 95; BMI 33.3
[2023-06-15 04:10] VITALS: BP 114/72; PULSE 78; RESP 14; TEMP 36.6; O2SAT 96
== END 2023-06-15 04:21 | disposition home or self-care (01) ==
PROVIDERS: Emergency Provider Internal Medicine
DX: F14.10 Cocaine abuse, uncomplicated (principal); F11.20 Opioid dependence, uncomplicated; F19.10 Other psychoactive substance abuse, uncomplicated; F43.10 Post-traumatic stress disorder, unspecified; F25.1 Schizoaffective disorder, depressive type; B19.20 Unspecified viral hepatitis C without hepatic coma; D64.9 Anemia, unspecified; F17.210 Nicotine dependence, cigarettes, uncomplicated; Z79.899 Other long term (current) drug therapy
CPT/HCPCS: 99282; 99284

== ENCOUNTER 2023-06-23 12:07 | Emergency (ER) | payer OTHER, SELFPAY ==
--- NOTE | 2023-06-23 12:27 | PC.NURSE ---
Patient arrived via [facility] after being given 8mg of narcan. Patient denied drug use to EMS. Patient brought to bathroom by tech to pattern changer and repairer into hospital attire. Patient left bathroom and exited facility via main entrance at 12:16pm. Gait steady.
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
== END 2023-06-23 13:04 | disposition left against medical advice (07) ==
LOC: HO.ED 12:42
PROVIDERS: Emergency Provider Student in an Organized Health Care Education/Training Program
DX: T50.901A Poisoning by unspecified drugs, medicaments and biological substances, accidental (unintentional), initial encounter (principal); X58.XXXA Exposure to other specified factors, initial encounter

== ENCOUNTER 2023-06-25 15:37 | Inpatient (IN) | payer OTHER, SELFPAY ==
--- NOTE | ~2023-06-25 | CT_ITS ---
EXAMINATION: CT FACIAL BONES WITHOUT CONTRAST CLINICAL INFORMATION: Facial trauma. Fall. COMPARISON: None available. TECHNIQUE: CT of the facial bones was performed without intravenous contrast. Multiplanar reformats were rendered and reviewed. This CT examination was performed using dose optimization techniques as appropriate, variously including the following: *Automated exposure control *Adjustment of mA and/or kV according to patient size (this includes techniques or standardized protocols for targeted exams where dose is matched to indication/reason for exam; i.e. extremities or head) *Use of iterative reconstruction technique DLP: 304 mGy-cm FINDINGS: The history reads simply facial trauma. It does not indicate exactly where injury is suspected, limiting the study. No significant preseptal soft tissue swelling is appreciated. The orbital benavides and orbital rims appear intact. There is no infiltration of the intraorbital fat or evidence of retrobulbar hematoma. The extraocular muscles and optic nerve sheath complexes are symmetric and normal in appearance. The globes appear normal and symmetric. The zygomas and zygomaticomaxillary buttresses appear intact. Deviation of the nasal septum toward the right. The nasal bones and tbfd-fawcyw-vsplwka complex appear intact. The maxillary alveolus and hard palate appear intact. The mandible appears intact, with mandibular condyles normally positioned within the glenoid fossa. The osseous structures of the central skull base appear intact. Mild bilateral maxillary sinus mucosal thickening, left worse than right. Mild left sphenoid sinus mucosal thickening. Small retention cyst versus mucosal polyps involving the right frontal sinus and a right anterior ethmoid air cell. The mastoid air cells and middle ear cavities appear clear. CT/CT facial bones wo IV con IMPRESSION: The history reads simply facial trauma. It does not indicate exactly where injury is suspected, limiting the study. No acute finding.
--- NOTE | ~2023-06-25 | CT_ITS ---
EXAMINATION: CT HEAD WITHOUT CONTRAST CT CERVICAL SPINE WITHOUT CONTRAST CLINICAL INFORMATION: Fall. Neck trauma. COMPARISON: 10/18/2018. TECHNIQUE: CT of the head and cervical spine were performed without intravenous contrast. Multiplanar reformats were rendered and reviewed. This CT examination was performed using dose optimization techniques as appropriate, variously including the following: *Automated exposure control *Adjustment of mA and/or kV according to patient size (this includes techniques or standardized protocols for targeted exams where dose is matched to indication/reason for exam; i.e. extremities or head) *Use of iterative reconstruction technique DLP: 1157 mGy-cm. FINDINGS: CT head: No intracranial hemorrhage, large infarction, or mass lesion is seen. No extra-axial collection is appreciated. The ventricles are normal in size and configuration without evidence of hydrocephalus. Subcentimeter right frontal sinus retention cyst versus mucosal polyp. The mastoid air cells are clear. CT cervical spine: The vertebral body heights appear maintained. No cervical spine fracture is seen. The cervical alignment appears normal. The paraspinal soft tissues appear within normal limits. The partially imaged lung apices appear clear. CT/CT head/brain wo IV con IMPRESSION: CT head: No acute intracranial finding. CT cervical spine: No cervical spine fracture or traumatic malalignment identified.
--- NOTE | ~2023-06-25 | XR_ITS ---
EXAMINATION: XR LUMBOSACRAL SPINE CLINICAL INFORMATION: Back pain. COMPARISON: None available. TECHNIQUE: Three views of the lumbosacral spine. FINDINGS: The vertebral bodies and posterior elements appear unremarkable. The disc spaces appear preserved, and the vertebral alignment is normal. The paraspinal soft tissues appear unremarkable. XR/XR lumbar spine 2-3V IMPRESSION: Unremarkable examination.
--- NOTE | ~2023-06-25 | CT_ITS ---
EXAMINATION: CT HEAD WITHOUT CONTRAST CT CERVICAL SPINE WITHOUT CONTRAST CLINICAL INFORMATION: Fall. Neck trauma. COMPARISON: 10/18/2018. TECHNIQUE: CT of the head and cervical spine were performed without intravenous contrast. Multiplanar reformats were rendered and reviewed. This CT examination was performed using dose optimization techniques as appropriate, variously including the following: *Automated exposure control *Adjustment of mA and/or kV according to patient size (this includes techniques or standardized protocols for targeted exams where dose is matched to indication/reason for exam; i.e. extremities or head) *Use of iterative reconstruction technique DLP: 1157 mGy-cm. FINDINGS: CT head: No intracranial hemorrhage, large infarction, or mass lesion is seen. No extra-axial collection is appreciated. The ventricles are normal in size and configuration without evidence of hydrocephalus. Subcentimeter right frontal sinus retention cyst versus mucosal polyp. The mastoid air cells are clear. CT cervical spine: The vertebral body heights appear maintained. No cervical spine fracture is seen. The cervical alignment appears normal. The paraspinal soft tissues appear within normal limits. The partially imaged lung apices appear clear. CT/CT cervical spine wo IV con IMPRESSION: CT head: No acute intracranial finding. CT cervical spine: No cervical spine fracture or traumatic malalignment identified.
--- NOTE | ~2023-06-25 | CT_ITS ---
EXAMINATION: CT CHEST, ABDOMEN, AND PELVIS WITH CONTRAST CLINICAL INFORMATION: Fall. Rib pain. Left flank pain. COMPARISON: None TECHNIQUE: Multidetector volumetric CT imaging of the chest, abdomen, and pelvis was obtained after the administration of 100 mL of Omnipaque 300 intravenous contrast without immediate adverse reactions. Axial MIP volume rendering provided. Sagittal and coronal reformatted images were obtained. This CT examination was performed using dose optimization techniques as appropriate, variously including the following: *Automated exposure control *Adjustment of mA and/or kV according to patient size (this includes techniques or standardized protocols for targeted exams where dose is matched to indication/reason for exam; i.e. extremities or head) *Use of iterative reconstruction technique DLP: 1089 mGy-cm FINDINGS: LUNGS: The lungs are clear with no evidence of inflammation or nodules. MEDIASTINUM: The mediastinum appears unremarkable. CORONARY ARTERY CALCIFICATION: Mild. PLEURA: There is no pleural effusion. No pleural mass or thickening. CHEST WALL/AXILLA: Mild bilateral gynecomastia. No lymphadenopathy by size criteria. LIVER, GALLBLADDER, AND BILIARY TREE: The liver appears unremarkable in size, shape, and attenuation. No focal hepatic lesion or biliary ductal dilatation is appreciated. Unremarkable appearance of the gallbladder. PANCREAS: Unremarkable SPLEEN: Unremarkable ADRENAL GLANDS: Unremarkable KIDNEYS AND URETERS: The kidneys appear unremarkable in size, shape, and attenuation. No hydronephrosis, hydroureter, or calculi seen. BLADDER: Unremarkable GASTROINTESTINAL TRACT: The small and large bowel appear unremarkable. No diverticulosis. Normal-appearing distal ileum and vermiform appendix. ABDOMINAL WALL: No significant hernia is appreciated. LYMPH NODES: No evidence of adenopathy by size criteria. VASCULAR: Unremarkable. PELVIC VISCERA: Unremarkable OSSEOUS STRUCTURES: Unremarkable. CT/CT abdomen pelvis w IV con IMPRESSION: No acute finding.
[2023-06-25 15:55] VITALS: BP 138/90; BP 158/79; PULSE 106; PULSE 95; RESP 16; TEMP 35.5; O2SAT 97; O2SAT 99; BMI 29.0
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
[2023-06-25 17:29] LABS: MANUAL DIFF FLAG NO
[2023-06-25 17:33] LABS: Basophils Percent Auto 0.3 % (0-2); Eosinophils Percent Auto 0.3 % (0-4); Hematocrit 41.3 % (42.0-52.0); Hemoglobin 14.3 g/dl (14.0-18.0); Imm Gran Abs Auto 0.05 X10*3/uL (0.00-0.03); Imm Gran Pct Auto 0.4 % (0.0-0.4); Lymphocytes Absolute Auto 0.9 X10*3/uL (1.2-4.9); Lymphocytes Percent Auto 7.8 % (20-40); Mean Corpuscular HGB Conc 34.6 g/dl (31.0-36.0); Mean Corpuscular Hemoglobin 29.4 pg (27.0-33.0); Mean Corpuscular Volume 84.8 fL (80.0-98.0); Mean Platelet Volume 9.6 fL (9.4-12.4); Monocytes Absolute Auto 0.8 X10*3/uL (0.1-1.2); Monocytes Percent Auto 6.7 % (2-11); Neutrophils Absolute Auto 9.5 x10*3/uL (2.0-8.3); Neutrophils Percent Auto 84.5 % (45-73); Platelet Count 178 X10*3/uL (160-400); Red Blood Count 4.87 X10*6/uL (4.60-5.80); Red Cell Distribution Width 12.6 % (11.0-16.0); White Blood Count 11.3 X10*3/uL (4.8-10.8)
[2023-06-25 17:50] LABS: Alanine Aminotransferase 293 U/L (0-40); Alkaline Phosphatase 128 U/L (39-117); Anion Gap 14 (12-20); Aspartate Amino Transferase 488 U/L (5-37); Bilirubin Direct 0.4 mg/dL (0.0-0.5); Bilirubin Total 0.8 mg/dL (0.0-1.0); Blood Urea Nitrogen 12 mg/dL (9-16); Calcium 9.1 mg/dL (8.4-10.2); Carbon Dioxide 26 mmol/L (22-29); Chloride 101 mmol/L (96-108); Creatinine Clr Calc Pharmacy 120.4; Estimated Glomerular Filt Rate > 60; Glucose Random 136 mg/dL (60-115); Magnesium 2.1 mg/dL (1.6-2.6); Potassium 4.1 mmol/L (3.3-5.1); Sodium 137 mmol/L (135-145); Total Protein 7.2 g/dL (6.5-8.0)
--- NOTE | 2023-06-25 18:09 | ECG_ITS ---
Test Reason : DRUG ABUSE Blood Pressure : / mmHG Vent. Rate : 087 BPM Atrial Rate : 087 BPM P-R Int : 132 ms QRS Dur : 102 ms QT Int : 378 ms P-R-T Axes : 052 080 064 degrees QTc Int : 454 ms Normal sinus rhythm Normal ECG When compared with ECG of 03-OCT-2022 12:56, No significant change was found Heart rate has increased Referred By: Deysi Boothe Electronically Signed By:MAYELA BUCKNER MD
[2023-06-25] MEDS: iohexoL 350 MG/ML 100 ML INFUS..BTL IV (18:17)
[2023-06-25] MEDS: 0.9 % Sodium Chloride 1,000 ML 999 ML IV ×2 (18:20)
[2023-06-25 18:35] LABS: Ethanol < 10 mg/dL
--- NOTE | 2023-06-25 21:20 | PM.IMHP ---
History of Present Illness Date of Service: 06/25/23 <SHANON Méndez - Last Filed: 06/25/23 21:36> Attending physician on admission: Edilberto Trevino <SHANON Méndez - Last Filed: 06/25/23 21:36> Chief Complaint: overdose <SHANON Méndez - Last Filed: 06/25/23 21:36> 42-year-old male with history of alcohol abuse, polysubstance abuse, PTSD, schizoaffective disorder, and hepatitis-C not currently on treatment presented to the ED via [place] and requiring [place] Narcan 8 mg prior to arrival. The patient reports that he uses inhaled heroin and cocaine and that he had been sober for about 1 year but relapsed recently. He is reporting low back pain and diffuse pain of the muscles of the extremities. He is unsure how long he was down for. He also reports daily alcohol use. States he drinks a 12 pack of beer and a pt of Angie on a daily basis, last drink was last night. On arrival, vital stable. There is a mild leukocytosis of 11.3. Renal function and electrolyte levels normal. AST 488, ALT 293, alkaline phosphatase 128. Total CK 19,091. Ethyl alcohol level undetectable. Urinalysis and urine tox screen pending. CT abdomen/pelvis negative for any acute intra-abdominal abnormality. Chest CT unremarkable. Head CT negative for any acute intracranial abnormality. Cervical spine CT negative for fracture, subluxation, or dislocation. Facial CT negative for any acute finding, though study is limited. In the ED, has received 2 L IV NS. <SHANON Méndez - Last Filed: 06/25/23 21:36> Review of Systems Review of Systems: General: No fevers, malaise, unintentional weight loss HEENT: No blurred vision, diplopia. No sore throat, nasal congestion, rhinorrhea, sinus pain, ear pain Cardiovascular: No chest pain, palpitations, or leg edema Respiratory: No shortness of breath, wheezing, cough GI: No abdominal pain, nausea, vomiting, diarrhea, constipation, melena, hematochezia : No dysuria, hematuria, increased urinary frequency, decreased urinary output MSK: +myalgia, +back pain Neuro: No headaches, weakness, paresthesias Skin: No rashes or lesions <SHANON Méndez - Last Filed: 06/25/23 21:36> [facility] Medical History: Medical History Hepatitis C Alcohol use disorder Cocaine use disorder Opioid use disorder PTSD (post-traumatic stress disorder) Schizoaffective disorder, depressive type Substance abuse Anemia <SHANON Méndez - Last Filed: 06/25/23 21:36> Social History: Social History Household Members: None Housing: Homeless Do you presently have visiting nurse or other home services: No Alcohol intake: current Alcohol intake frequency: does not drink Alcohol type: beer Patient Tobacco Use Status: Current everyday Tobacco user Tobacco use type: Cigarette Cigarette Packs Per Day: 1 Cigarettes Per Day: 20.0 Years Smoked: 4 Smoked in Last 30 Days: Yes e-Cigarette/Vaping Use: Currently Using Second Hand Smoke Exposure: No Use of substances other than those prescribed or required for medical reasons: Yes Substance Use Type: Heroin Substance Use Frequency: Chronic Longstanding Substance Use Frequency Other:: RECENT RELAPSE OVER PAST FEW DAYS Advance Directives: No Advance Directives Information Provided: No service: No Sexual orientation: Straight/Heterosexual <SHANON Méndez - Last Filed: 06/25/23 21:36> Meds Allergies/Adverse reactions: Allergies Allergy/AdvReac Type Severity Reaction Status Date / Time haloperidol [From Haldol] AdvReac Unknown Verified 06/15/23 02:17 <SHANON Méndez - Last Filed: 06/25/23 21:36> Active Medications: Current Medications Acetaminophen (Acetaminophen 325 Mg Tablet) 650 mg PO Q6H PRN PRN Reason: Pain, Mild (Pain Scale 1-3) Enoxaparin Sodium (Enoxaparin Sodium 40 Mg/0.4 Ml Syringe) 40 mg SUBCUT Q24H ROSALBA Lactated Ringer's (Lr) 1,000 mls @ 150 mls/hr IVCONT .Q6H40M ROSALBA Melatonin (Melatonin 3 Mg Tablet) 6 mg PO BEDTIME PRN PRN Reason: Insomnia Ondansetron HCl (Ondansetron Hcl 4 Mg/2 Ml Vial) 4 mg IVPUSH Q8H PRN PRN Reason: Nausea and Vomiting Sodium Chloride (0.9 % Sodium Chloride Flush 3 Ml Syringe) 3 ml IVFLUSH QSHIFT ROSALBA <SHANON Méndez - Last Filed: 06/25/23 21:36> Home medications: Home Medications Medication Instructions Recorded Confirmed Last Taken Type benztropine 1 mg tablet 1 tab PO BEDTIME 10/05/21 01/15/23 01/15/23 09:00 History clonazepam 1 mg tablet 1 tab PO BID PRN Anxiety 10/05/21 01/15/23 01/15/23 History prazosin 2 mg capsule 1 cap PO BEDTIME 10/05/21 01/15/23 01/15/23 History risperidone 2 mg tablet (Risperdal) 1 tab PO BEDTIME 10/05/21 01/15/23 01/14/23 22:00 History <SHANON Méndez - Last Filed: 06/25/23 21:36> Physical Exam Vital Signs and Narrative: Vital Signs: Last Vital Signs Temp 96 F L 06/25/23 15:55 Pulse 95 06/25/23 15:55 Resp 16 06/25/23 15:55 BP 158/79 H 06/25/23 15:55 Pulse Ox 99 06/25/23 15:55 O2 Del Method Room Air 06/25/23 15:55 BMI result Body Mass Index 29.0 <SHANON Méndez - Last Filed: 06/25/23 21:36> Constitutional - Awake and Alert, No apparent distress Eyes - PERRLA, EOMI Cardiovascular - S1S2, RRR, No edema Respiratory - Normal lung expansion, Normal respiratory effort, No respiratory distress, CTA bilaterally Gastrointestinal - NT / ND; +BS; No rebound or guarding Extremities - no calf tenderness bilaterally, no swelling Musculoskeletal - Normal inspection, normal ROM Skin - Warm/Dry. Laceration of the left forehead. contusion to the left low back Neurological - Alert & oriented x3 Psychological - Appropriate affect <SHANON Méndez - Last Filed: 06/25/23 21:36> Results Labs CBC and Chem 7: 06/25/23 17:20 06/25/23 17:20 <SHANON Méndez - Last Filed: 06/25/23 21:36> Labs: Laboratory Results - last 24 hr 06/25/23 17:20 MCV 84.8 MCH 29.4 MCHC 34.6 RDW 12.6 Plt Count 178 MPV 9.6 Immature Gran % (Auto) 0.4 Neut % (Auto) 84.5 H Lymph % (Auto) 7.8 L [place] % (Auto) 6.7 Eos % (Auto) 0.3 Baso % (Auto) 0.3 Lymph # (Auto) 0.9 L [place] # (Auto) 0.8 Eos # (Auto) 0.0 Baso # (Auto) 0.0 Abs Immat Gran (auto) 0.05 H Absolute Neuts (auto) 9.5 H Absolute Nucleated RBC 0.000 Nucleated RBC % (auto) 0.0 Anion Gap 14 Estim Creat Clear Calc 120.4 Estimated GFR > 60 Random Glucose 136 H Calcium 9.1 Magnesium 2.1 Total Bilirubin 0.8 Direct Bilirubin 0.4 AST 488 H ALT 293 H Alkaline Phosphatase 128 H Total Creatine Kinase 22135 H Total Protein 7.2 Albumin 4.0 Ethyl Alcohol < 10 <SHANON Méndez - Last Filed: 06/25/23 21:36> Imaging Radiologist's Impressions: Impressions Abdomen/Pelvis CT 06/25/23 18:20 IMPRESSION: No acute finding. Cervical Spine CT 06/25/23 18:20 IMPRESSION: CT head: No acute intracranial finding. CT cervical spine: No cervical spine fracture or traumatic malalignment identified. Chest CT 06/25/23 18:20 IMPRESSION: No acute finding. Face CT 06/25/23 18:20 IMPRESSION: The history reads simply facial trauma. It does not indicate exactly where injury is suspected, limiting the study. No acute finding. Head CT 06/25/23 18:20 IMPRESSION: CT head: No acute intracranial finding. CT cervical spine: No cervical spine fracture or traumatic malalignment identified. <SHANON Méndez - Last Filed: 06/25/23 21:36> Assessment and Plan (1) Drug overdose: Qualifiers: Encounter type: initial encounter Injury intent: accidental or unintentional Qualified Code(s): T50.901A - Poisoning by unspecified drugs, medicaments and biological substances, accidental (unintentional), initial encounter <SHANON Méndez - Last Filed: 06/25/23 21:36> Status: Acute <SHANON Méndez - Last Filed: 06/25/23 21:36> (2) Rhabdomyolysis: Qualifiers: Rhabdomyolysis type: non-traumatic Qualified Code(s): M62.82 - Rhabdomyolysis <SHANON Méndez - Last Filed: 06/25/23 21:36> Status: Acute <SHANON Méndez - Last Filed: 06/25/23 21:36> 42-year-old male with history of alcohol abuse, polysubstance abuse, PTSD, schizoaffective disorder, and hepatitis-C not currently on treatment admitted for acute rhabdomyolysis # acute rhabdomyolysis -CPK 19,091, renal function normal -given 2 L IV NS in the ED. Continue aggressive IV LR -follow the CPK, BMP #Acute toxic metabolic encephalopathy -due to substance use -pt required 8 mg Narcan prior to arrival following opiate overdose -monitor mentation # alcohol use disorder -no evidence of acute withdrawal at this time, ethyl alcohol level undetectable -monitor on CIWA -addiction medicine consult # polysubstance abuse with acute opiate overdose -reports inhaled heroin and cocaine use -required 8 mg IN Narcan prior to arrival -urine tox screen pending -addiction medicine consult # hepatitis-C with significant transaminitis -will need outpatient follow-up with Gastroenterology -avoid hepatic toxins # schizoaffective disorder/PTSD -continue home meds DVT prophylaxis-Lovenox Full code Patient requires inpatient stay at least 2 midnights for management of acute rhabdomyolysis requiring aggressive IV fluid resuscitation as well as close monitoring for and treatment of alcohol withdrawal <SHANON Méndez - Last Filed: 06/25/23 21:36> 42-year-old male with history of alcohol abuse, polysubstance abuse, PTSD, schizoaffective disorder, and hepatitis-C not currently on treatment admitted for acute rhabdomyolysis # acute rhabdomyolysis -CPK 19,091, renal function normal -given 2 L IV NS in the ED. Continue aggressive IV LR -follow the CPK, BMP #Acute toxic encephalopathy -due to substance use -pt required 8 mg Narcan prior to arrival following opiate overdose -monitor mentation # alcohol use disorder -no evidence of acute withdrawal at this time, ethyl alcohol level undetectable -monitor on CIWA -addiction medicine consult # polysubstance abuse with acute opiate overdose -reports inhaled heroin and cocaine use -required 8 mg IN Narcan prior to arrival -urine tox screen pending -addiction medicine consult # hepatitis-C with significant transaminitis -will need outpatient follow-up with Gastroenterology -avoid hepatic toxins # schizoaffective disorder/PTSD -continue home meds DVT prophylaxis-Lovenox Full code Patient requires inpatient stay at least 2 midnights for management of acute rhabdomyolysis requiring aggressive IV fluid resuscitation as well as close monitoring for and treatment of alcohol withdrawal <Edilberto Trevino MD - Last Filed: 06/25/23 21:44> Time Spent With Patient Time: Total time managing care of this patient today ____ minutes. <SHANON Méndez - Last Filed: 06/25/23 21:36> Quality Stroke Does the patient have a stroke diagnosis?: No <SHANON Méndez - Last Filed: 06/25/23 21:36> VTE Prior VTE?: No <SHANON Méndez - Last Filed: 06/25/23 21:36> VTE Risk Level:: Medical - moderate - high <SHANON Méndez - Last Filed: 06/25/23 21:36> VTE Device Contraindication: Treatment Not Indicated <SHANON Méndez - Last Filed: 06/25/23 21:36> VTE Drug Contraindication: N/A - Med Ordered <SHANON Méndez - Last Filed: 06/25/23 21:36>
[2023-06-25] MEDS: 0.9 % Sodium Chloride 250 ML 999 ML IV (22:41)
[2023-06-25] MEDS: Enoxaparin Sodium 40 MG/0.4 ML SYRINGE SUBCUT (22:50)
[2023-06-25] MEDS: oxyCODONE HCl Immed Release 5 MG TABLET 10 MG PO (22:50)
[2023-06-25] MEDS: Melatonin 3 MG TABLET 6 MG PO (22:50)
[2023-06-25 23:13] VITALS: BP 120/72; PULSE 79; RESP 16; TEMP 36.7; O2SAT 95
[2023-06-26] MEDS: Lactated Ringers 1,000 ML 150 ML IVCONT ×4 (01:22→21:26)
[2023-06-26] MEDS: 0.9 % Sodium Chloride Flush 3 ML SYRINGE IVFLUSH (01:23)
--- NOTE | 2023-06-26 01:55 | MHC.EDTECH ---
patient oil change technician into hospital attire all belonging are in decon
[2023-06-26 03:00] LABS: Appearance Urine Clear; Color Urine Yellow; Glucose Urine UA Negative (Negative); Leukocyte Esterase Urine Negative (Negative); Nitrite Urine Negative (Negative); Specific Gravity - Urine <= 1.005 (1.005-1.025); Urine Blood Negative (Negative); Urine Ketones Negative (Negative); Urine Protein Negative (Neg-Trace)
[2023-06-26 03:06] LABS: Amphetamine Screen Urine Not Detected (Not Detect); Barbiturates, Urine Not Detected (Not Detect); Benzodiazepines Screen Urine Not Detected (Not Detect); Cannabinoid Screen Urine POSITIVE (Not Detect); Cocaine Screen Urine POSITIVE (Not Detect); Fentanyl, urine POSITIVE (Not Detect); Opiate Screen Urine Not Detected (Not Detect); Phencyclidine Screen Urine Not Detected (Not Detect)
--- NOTE | 2023-06-26 04:18 | PC.NURSE ---
this RN assumed care of patient at 1900; pt resting in stretcher in hallway, no apparent distress. a/o x4. calm and cooperative w/ care. behavior appropriate w/ staff. ambulatory w/ a steady gait in the hallway. at approx 2250 pt complaints of 10 out of 10 generalized pain. medicated w/ PRN Oxycodone per NOV, med was effective. will continue to monitor.
[2023-06-26] MEDS: oxyCODONE HCl Immed Release 5 MG TABLET 10 MG PO ×3 (09:31→21:22)
[2023-06-26] MEDS: Nicotine 21 MG PATCH.TD24 TRANSDERMA (09:31)
--- NOTE | 2023-06-26 10:31 | PHA.MEDREC ---
Pharmacy Consult ? Medication Reconciliation Pharmacy has completed the medication reconciliation. Pt states he does not have a PCP anymore. He is currently not on any medications or OTC and said it has been months. Pt also states he is no longer on methadone [place]
[2023-06-26 10:40] LABS: MANUAL DIFF FLAG NO
[2023-06-26 10:57] LABS: Basophils Percent Auto 0.5 % (0-2); Eosinophils Absolute Auto 0.2 X10*3/uL (0.0-0.4); Eosinophils Percent Auto 2.5 % (0-4); Hematocrit 34.6 % (42.0-52.0); Hemoglobin 11.9 g/dl (14.0-18.0); Imm Gran Abs Auto 0.01 X10*3/uL (0.00-0.03); Imm Gran Pct Auto 0.2 % (0.0-0.4); Lymphocytes Absolute Auto 3.2 X10*3/uL (1.2-4.9); Lymphocytes Percent Auto 50.2 % (20-40); Mean Corpuscular HGB Conc 34.4 g/dl (31.0-36.0); Mean Corpuscular Hemoglobin 29.8 pg (27.0-33.0); Mean Corpuscular Volume 86.7 fL (80.0-98.0); Mean Platelet Volume 10.2 fL (9.4-12.4); Monocytes Absolute Auto 0.6 X10*3/uL (0.1-1.2); Monocytes Percent Auto 9.2 % (2-11); Neutrophils Absolute Auto 2.4 x10*3/uL (2.0-8.3); Neutrophils Percent Auto 37.4 % (45-73); Platelet Count 125 X10*3/uL (160-400); Red Blood Count 3.99 X10*6/uL (4.60-5.80); Red Cell Distribution Width 12.7 % (11.0-16.0); White Blood Count 6.4 X10*3/uL (4.8-10.8)
[2023-06-26 11:12] LABS: Anion Gap 13 (12-20); Blood Urea Nitrogen 10 mg/dL (9-16); Calcium 8.8 mg/dL (8.4-10.2); Carbon Dioxide 29 mmol/L (22-29); Chloride 99 mmol/L (96-108); Creatinine Clr Calc Pharmacy 135.4; Estimated Glomerular Filt Rate > 60; Glucose Random 113 mg/dL (60-115); Potassium 4.1 mmol/L (3.3-5.1); Sodium 137 mmol/L (135-145)
--- NOTE | 2023-06-26 12:31 | HO.ADDICTCON ---
History of Present Illness Date of Service: 06/26/2023 Chief Complaint: Encephalopathy Reason for Consult: opioid overdose Discussed with referring provider: Yes Sources of Information: patient interviewed and chart reviewed HPI Narrative: Patient is a 42 year old male currently medically admitted with rhabdo following an opioid overdose requiring narcan Seen in room 347, awake, alert, pleasant and engaged in interview. He reports he had been in recovery for almost one year, and used one bag leading to overdose. He denies any withdrawal sx Reports at least 5 overdoses in his lifetime Several admissions to various levels of addiction treatment Previously on methadone for several years. Patient reports that he does not wish to access any recovery supports or resources. Not interested in MOUD. Past Psychiatric History: 1 Past psychiatric hospitalization several years ago Five years ago, suicide attempt by overdose Patient has prescriber and therapist in the community Review of Systems Constitutional: Reports as per HPI and Reports no additional constitutional complaints Diagnostics Vital Signs (24Hr): Vital Signs - 24 hr 06/25/23 15:55 06/25/23 23:13 Temperature 96 F L 98.1 F Pulse Rate 95 79 Respiratory Rate 16 16 Blood Pressure 158/79 H 120/72 Pulse Oximetry 99 95 Oxygen Delivery Method Room Air Room Air BMI result Body Mass Index 29.0 Labs 06/26/23 10:01 06/26/23 10:01 Labs: Laboratory Results - last 48 hr 06/25/23 06/26/23 06/26/23 17:20 02:53 10:01 WBC 11.3 H 6.4 RBC 4.87 3.99 L Hgb 14.3 11.9 L Hct 41.3 L 34.6 L MCV 84.8 86.7 MCH 29.4 29.8 MCHC 34.6 34.4 RDW 12.6 12.7 Plt Count 178 125 L D MPV 9.6 10.2 Immature Gran % (Auto) 0.4 0.2 Neut % (Auto) 84.5 H 37.4 L Lymph % (Auto) 7.8 L 50.2 H [place] % (Auto) 6.7 9.2 Eos % (Auto) 0.3 2.5 Baso % (Auto) 0.3 0.5 Lymph # (Auto) 0.9 L 3.2 [place] # (Auto) 0.8 0.6 Eos # (Auto) 0.0 0.2 Baso # (Auto) 0.0 0.0 Abs Immat Gran (auto) 0.05 H 0.01 Absolute Neuts (auto) 9.5 H 2.4 Absolute Nucleated RBC 0.000 0.000 Nucleated RBC % (auto) 0.0 0.0 Sodium 137 137 Potassium 4.1 4.1 Chloride 101 99 Carbon Dioxide 26 29 Anion Gap 14 13 BUN 12 10 Creatinine 0.81 0.72 Estim Creat Clear Calc 120.4 135.4 Estimated GFR > 60 > 60 Random Glucose 136 H 113 Calcium 9.1 8.8 Magnesium 2.1 Total Bilirubin 0.8 Direct Bilirubin 0.4 AST 488 H ALT 293 H Alkaline Phosphatase 128 H Total Creatine Kinase 19511 H 13081 H Total Protein 7.2 Albumin 4.0 Urine Color Yellow Urine Appearance Clear Urine pH 6.0 Ur Specific [place] <= 1.005 Urine Protein Negative Urine Glucose (UA) Negative Urine Ketones Negative Urine Blood Negative Urine Nitrite Negative Ur Leukocyte Esterase Negative Urine Opiates Screen Not Detected Urine Fentanyl Screen POSITIVE H Ur Barbiturates Screen Not Detected Ur Phencyclidine Scrn Not Detected Ur Amphetamines Screen Not Detected U Benzodiazepines Scrn Not Detected Urine Cocaine Screen POSITIVE H U Marijuana (THC) Screen POSITIVE H Ethyl Alcohol < 10 Imaging Radiology Impressions: ITS Impressions Abdomen/Pelvis CT 06/25/23 18:20 IMPRESSION: No acute finding. Cervical Spine CT 06/25/23 18:20 IMPRESSION: CT head: No acute intracranial finding. CT cervical spine: No cervical spine fracture or traumatic malalignment identified. Chest CT 06/25/23 18:20 IMPRESSION: No acute finding. Face CT 06/25/23 18:20 IMPRESSION: The history reads simply facial trauma. It does not indicate exactly where injury is suspected, limiting the study. No acute finding. Head CT 06/25/23 18:20 IMPRESSION: CT head: No acute intracranial finding. CT cervical spine: No cervical spine fracture or traumatic malalignment identified. Mental Status Exam Mental Status Exam Narrative: Awake, alert, affect appropriate, clear thought process, insight fair Abrasions noted to forehead and cheeks, as well as large abrasion on sternum Medications Medications Current Medications Acetaminophen (Acetaminophen 325 Mg Tablet) 650 mg PO Q6H PRN PRN Reason: Pain, Mild (Pain Scale 1-3) Enoxaparin Sodium (Enoxaparin Sodium 40 Mg/0.4 Ml Syringe) 40 mg SUBCUT Q24H [facility] Last Admin: 06/25/23 22:50 Dose: 40 mg Lactated Ringer's (Lr) 1,000 mls @ 150 mls/hr IVCONT .Q6H40M [facility] Last Admin: 06/26/23 09:11 Dose: 150 mls/hr Melatonin (Melatonin 3 Mg Tablet) 6 mg PO BEDTIME PRN PRN Reason: Insomnia Last Admin: 06/25/23 22:50 Dose: 6 mg Nicotine (Nicotine 21 Mg Patch.Td24) 21 mg TRANSDERMA DAILY [facility] Last Admin: 06/26/23 09:31 Dose: 21 mg Ondansetron HCl (Ondansetron Hcl 4 Mg/2 Ml Vial) 4 mg IVPUSH Q8H PRN PRN Reason: Nausea and Vomiting Oxycodone HCl (Oxycodone Hcl Immed Release 5 Mg Tablet) 10 mg PO Q4H PRN PRN Reason: Pain, Moderate(Pain Scale 4-6) Last Admin: 06/26/23 09:31 Dose: 10 mg Sodium Chloride (0.9 % Sodium Chloride Flush 3 Ml Syringe) 3 ml IVFLUSH QSHIFT [facility] Last Admin: 06/26/23 08:11 Dose: Not Given Allergies Allergies Allergy/AdvReac Type Severity Reaction Status Date / Time haloperidol [From Haldol] AdvReac Unknown Verified 06/15/23 02:17 Assessment & Plan Assessment & Plan (1) Opioid use disorder: Status: Acute Code(s): F11.90 - Opioid use, unspecified, uncomplicated Assessment and Plan: harm reduction and overdose prevention discussion--discussed using much smaller amounts due to decreased tolerance, increased presence of fentanyl and overall increased risk of overdose no follow up indicated take home narcan ordered Total time managing care of this patient today __35__ minutes. PMFSH Past Medical History Medical History Hepatitis C Alcohol use disorder Cocaine use disorder Opioid use disorder PTSD (post-traumatic stress disorder) Schizoaffective disorder, depressive type Substance abuse Anemia Social History Social History Household Members: None Housing: Other Housing Other:: assisted Do you presently have visiting nurse or other home services: No Alcohol intake: current Alcohol intake frequency: does not drink Alcohol type: beer Patient Tobacco Use Status: Tobacco use Unknown Tobacco use type: Cigarette Cigarette Packs Per Day: 1 Cigarettes Per Day: 20.0 Years Smoked: 4 e-Cigarette/Vaping Use: Currently Using Second Hand Smoke Exposure: No Substance Use Type: Crack/Cocaine, Heroin and Marijuana service: No Sexual orientation: Straight/Heterosexual
--- NOTE | 2023-06-26 13:52 | HO.PM.IMPN ---
Subjective Subjective Date of Service: 06/26/23 Interval History: No acute issues since admit. No signs of respiratory distress Review of Systems Denies chest pain Denies shortness of breath Denies nausea vomiting diarrhea Denies fever chills Physical Exam Vital Signs: Vital Signs: Last Vital Signs Temp 98.1 F 06/25/23 23:13 Pulse 79 06/25/23 23:13 Resp 16 06/25/23 23:13 BP 120/72 06/25/23 23:13 Pulse Ox 95 06/25/23 23:13 O2 Del Method Room Air 06/25/23 23:13 BMI result Body Mass Index 29.0 Const: Other: Awake alert no acute distress Resp: Other: Clear to auscultation bilaterally no rales rhonchi or wheezes Cardio: Other: No S4; positive S1-S2; no S3 murmurs rubs or gallops GI: Other: Soft nontender nondistended normoactive bowel sounds Neuro: Other: Cranial nerves 2-12 grossly intact as tested. Motor is 5/5 all extremities. Sensations intact. Cognition appropriate Extrem: Other: No edema bilaterally Objective Data Active Medications Acetaminophen (Acetaminophen 325 Mg Tablet) 650 mg PO Q6H PRN PRN Reason: Pain, Mild (Pain Scale 1-3) Enoxaparin Sodium (Enoxaparin Sodium 40 Mg/0.4 Ml Syringe) 40 mg SUBCUT Q24H [facility] Last Admin: 06/25/23 22:50 Dose: 40 mg Documented By: CHANTELLE Lactated Ringer's (Lr) 1,000 mls @ 150 mls/hr IVCONT .Q6H40M [facility] Last Admin: 06/26/23 09:11 Dose: 150 mls/hr Documented By: LEAH Melatonin (Melatonin 3 Mg Tablet) 6 mg PO BEDTIME PRN PRN Reason: Insomnia Last Admin: 06/25/23 22:50 Dose: 6 mg Documented By: CHANTELLE Nicotine (Nicotine 21 Mg Patch.Td24) 21 mg TRANSDERMA DAILY [facility] Last Admin: 06/26/23 09:31 Dose: 21 mg Documented By: LEAH Ondansetron HCl (Ondansetron Hcl 4 Mg/2 Ml Vial) 4 mg IVPUSH Q8H PRN PRN Reason: Nausea and Vomiting Oxycodone HCl (Oxycodone Hcl Immed Release 5 Mg Tablet) 10 mg PO Q4H PRN PRN Reason: Pain, Moderate(Pain Scale 4-6) Last Admin: 06/26/23 09:31 Dose: 10 mg Documented By: LEAH Sodium Chloride (0.9 % Sodium Chloride Flush 3 Ml Syringe) 3 ml IVFLUSH QSHIFT [facility] Last Admin: 06/26/23 08:11 Dose: Not Given Documented By: KIMBERLY Non-Admin Reason: IV Running Labs 06/26/23 10:01 06/26/23 10:01 Labs: Laboratory Results - last 24 hr 06/25/23 06/26/23 06/26/23 17:20 02:53 10:01 MCV 84.8 86.7 MCH 29.4 29.8 MCHC 34.6 34.4 RDW 12.6 12.7 Plt Count 178 125 L D MPV 9.6 10.2 Immature Gran % (Auto) 0.4 0.2 Neut % (Auto) 84.5 H 37.4 L Lymph % (Auto) 7.8 L 50.2 H [place] % (Auto) 6.7 9.2 Eos % (Auto) 0.3 2.5 Baso % (Auto) 0.3 0.5 Lymph # (Auto) 0.9 L 3.2 [place] # (Auto) 0.8 0.6 Eos # (Auto) 0.0 0.2 Baso # (Auto) 0.0 0.0 Abs Immat Gran (auto) 0.05 H 0.01 Absolute Neuts (auto) 9.5 H 2.4 Absolute Nucleated RBC 0.000 0.000 Nucleated RBC % (auto) 0.0 0.0 Anion Gap 14 13 Estim Creat Clear Calc 120.4 135.4 Estimated GFR > 60 > 60 Random Glucose 136 H 113 Calcium 9.1 8.8 Magnesium 2.1 Total Bilirubin 0.8 Direct Bilirubin 0.4 AST 488 H ALT 293 H Alkaline Phosphatase 128 H Total Creatine Kinase 26244 H 06978 H Total Protein 7.2 Albumin 4.0 Urine Color Yellow Urine Appearance Clear Urine pH 6.0 Ur Specific [place] <= 1.005 Urine Protein Negative Urine Glucose (UA) Negative Urine Ketones Negative Urine Blood Negative Urine Nitrite Negative Ur Leukocyte Esterase Negative Urine Opiates Screen Not Detected Urine Fentanyl Screen POSITIVE H Ur Barbiturates Screen Not Detected Ur Phencyclidine Scrn Not Detected Ur Amphetamines Screen Not Detected U Benzodiazepines Scrn Not Detected Urine Cocaine Screen POSITIVE H U Marijuana (THC) Screen POSITIVE H Ethyl Alcohol < 10 Assessment and Plan (1) Rhabdomyolysis: Status: Acute (2) Drug overdose: Status: Acute (3) Schizoaffective disorder, depressive type: Status: Acute Plan 42-year-old male with history of alcohol abuse, polysubstance abuse, PTSD, schizoaffective disorder, and hepatitis-C not currently on treatment admitted for acute rhabdomyolysis;' CK somewhat improved 1.Acute rhabdomyolysis -CPK trending downward. Creatinine remains stable -continue volume repletion with lactated Ringer's -follow the CPK, BMP 2.Acute toxic encephalopathy -resolved 3.Alcohol use disorder -no evidence of acute withdrawal at this time, ethyl alcohol level undetectable -monitor on CIWA -addiction medicine consult appreciated 4.Hepatitis-C with significant transaminitis -will need outpatient follow-up with Gastroenterology -avoid hepatic toxins 5.Schizoaffective disorder/PTSD -continue home meds Lovenox Full code Patient requires ongoing hospitalization for IV volume repletion to treat rhabdomyolysis Time Spent With Patient Time: Total time managing care of this patient today ____ minutes. Quality Stroke Does the patient have a stroke diagnosis?: No VTE Prior VTE?: No VTE Risk Level:: Medical - moderate - high VTE Device Contraindication: Treatment Not Indicated VTE Drug Contraindication: N/A - Med Ordered
[2023-06-26 15:11] VITALS: BP 122/76; PULSE 59; RESP 18; TEMP 36.4; O2SAT 96
[2023-06-26 19:16] VITALS: BP 126/76; PULSE 66; RESP 14; TEMP 36.3; O2SAT 97
[2023-06-26] MEDS: Enoxaparin Sodium 40 MG/0.4 ML SYRINGE SUBCUT (21:19)
[2023-06-26] MEDS: Melatonin 3 MG TABLET 6 MG PO (21:24)
[2023-06-27] MEDS: oxyCODONE HCl Immed Release 5 MG TABLET 10 MG PO ×4 (01:22→19:54)
[2023-06-27] MEDS: Acetaminophen 325 MG TABLET 650 MG PO ×2 (01:22→07:31)
[2023-06-27] MEDS: Lactated Ringers 1,000 ML 150 ML IVCONT ×3 (03:29→18:46)
[2023-06-27 04:00] VITALS: BP 124/83; PULSE 56; RESP 16; TEMP 36.2; O2SAT 97
[2023-06-27 06:08] LABS: PLT CLUMP 1; SCAN SMEAR FLAG 1
[2023-06-27 06:11] LABS: Basophils Percent Auto 0.6 % (0-2); Eosinophils Absolute Auto 0.2 X10*3/uL (0.0-0.4); Eosinophils Percent Auto 3.2 % (0-4); Hematocrit 35.7 % (42.0-52.0); Imm Gran Abs Auto 0.02 X10*3/uL (0.00-0.03); Imm Gran Pct Auto 0.4 % (0.0-0.4); Lymphocytes Absolute Auto 2.3 X10*3/uL (1.2-4.9); Lymphocytes Percent Auto 50.4 % (20-40); Mean Corpuscular HGB Conc 33.6 g/dl (31.0-36.0); Mean Corpuscular Hemoglobin 29.6 pg (27.0-33.0); Mean Corpuscular Volume 87.9 fL (80.0-98.0); Mean Platelet Volume 10.2 fL (9.4-12.4); Monocytes Absolute Auto 0.4 X10*3/uL (0.1-1.2); Monocytes Percent Auto 8.6 % (2-11); Neutrophils Absolute Auto 1.7 x10*3/uL (2.0-8.3); Neutrophils Percent Auto 36.8 % (45-73); Red Blood Count 4.06 X10*6/uL (4.60-5.80); Red Cell Distribution Width 12.7 % (11.0-16.0)
[2023-06-27 06:15] LABS: MANUAL DIFF FLAG NO; Platelet Count 131 X10*3/uL (160-400); White Blood Count 4.5 X10*3/uL (4.8-10.8)
[2023-06-27 06:30] LABS: Alanine Aminotransferase 220 U/L (0-40); Albumin Level 3.4 g/dL (3.5-5.0); Alkaline Phosphatase 91 U/L (39-117); Anion Gap 12 (12-20); Aspartate Amino Transferase 253 U/L (5-37); Bilirubin Total 0.4 mg/dL (0.0-1.0); Blood Urea Nitrogen 10 mg/dL (9-16); Calcium 8.8 mg/dL (8.4-10.2); Carbon Dioxide 28 mmol/L (22-29); Chloride 103 mmol/L (96-108); Creatinine Clr Calc Pharmacy 126.6; Estimated Glomerular Filt Rate > 60; Glucose Fasting 94 mg/dL (60-99); Sodium 139 mmol/L (135-145); Total Protein 6.2 g/dL (6.5-8.0)
[2023-06-27 06:44] VITALS: BP 134/78; PULSE 57; RESP 17; TEMP 36.6; O2SAT 96
[2023-06-27] MEDS: Nicotine 21 MG PATCH.TD24 TRANSDERMA (09:56)
--- NOTE | 2023-06-27 10:32 | MHC.CM.PN ---
pt lives with friends will need asstance w/transport when dcd hes ok with bus pass dc p [facility] home
[2023-06-27] MEDS: HYDROmorphone HCl 1 MG/ML SYRINGE IVPUSH (11:43)
--- NOTE | 2023-06-27 13:57 | P.PNIM_ITS ---
Subjective Subjective Date of Service: 06/27/23 Interval History: Complains of low back pain without radiation. States this began approximately 2 weeks ago and does not recount injury Review of Systems Denies chest pain Denies shortness of breath Denies nausea vomiting diarrhea Denies fever chills Physical Exam 2 Vital Signs: Vital Signs: Last Vital Signs Temp 98 F 06/27/23 06:44 Pulse 57 06/27/23 06:44 Resp 17 06/27/23 06:44 BP 134/78 06/27/23 06:44 Pulse Ox 96 06/27/23 06:44 O2 Del Method Room Air 06/27/23 06:44 BMI result Body Mass Index 29.0 Const: Other: Awake alert no acute distress Resp: Other: Clear to auscultation bilaterally no rales rhonchi or wheezes Cardio: Other: No S4; positive S1-S2; no S3 murmurs rubs or gallops GI: Other: Soft nontender nondistended normoactive bowel sounds Neuro: Other: Cranial nerves 2-12 grossly intact as tested. Motor is 5/5 all extremities. Sensations intact. Cognition appropriate Extrem: Other: No edema bilaterally Objective Data Active Medications Acetaminophen (Acetaminophen 325 Mg Tablet) 650 mg PO Q6H PRN PRN Reason: Pain, Mild (Pain Scale 1-3) Last Admin: 06/27/23 07:31 Dose: 650 mg Documented By: LEAH Enoxaparin Sodium (Enoxaparin Sodium 40 Mg/0.4 Ml Syringe) 40 mg SUBCUT Q24H REPLACED BY [facility] Last Admin: 06/26/23 21:19 Dose: 40 mg Documented By: KAREN Lactated Ringer's (Lr) 1,000 mls @ 150 mls/hr IVCONT .Q6H40M [facility]PLACED BY [facility] Last Admin: 06/27/23 09:56 Dose: 150 mls/hr Documented By: LEAH Melatonin (Melatonin 3 Mg Tablet) 6 mg PO BEDTIME PRN PRN Reason: Insomnia Last Admin: 06/26/23 21:24 Dose: 6 mg Documented By: KAREN Nicotine (Nicotine 21 Mg Patch.Td24) 21 mg TRANSDERMA DAILY [facility] Last Admin: 06/27/23 09:56 Dose: 21 mg Documented By: LEAH Ondansetron HCl (Ondansetron Hcl 4 Mg/2 Ml Vial) 4 mg IVPUSH Q8H PRN PRN Reason: Nausea and Vomiting Oxycodone HCl (Oxycodone Hcl Immed Release 5 Mg Tablet) 10 mg PO Q4H PRN PRN Reason: Pain, Moderate(Pain Scale 4-6) Last Admin: 06/27/23 07:32 Dose: 10 mg Documented By: LEAH Sodium Chloride (0.9 % Sodium Chloride Flush 3 Ml Syringe) 3 ml IVFLUSH QSHIFT [facility] Last Admin: 06/27/23 07:03 Dose: Not Given Documented By: LEAH Non-Admin Reason: IV Running Labs 06/27/23 05:27 06/27/23 05:27 Labs: Laboratory Results - last 24 hr 06/27/23 05:27 MCV 87.9 MCH 29.6 MCHC 33.6 RDW 12.7 Plt Count 131 L MPV 10.2 Immature Gran % (Auto) 0.4 Neut % (Auto) 36.8 L Lymph % (Auto) 50.4 H [place] % (Auto) 8.6 Eos % (Auto) 3.2 Baso % (Auto) 0.6 Lymph # (Auto) 2.3 [place] # (Auto) 0.4 Eos # (Auto) 0.2 Baso # (Auto) 0.0 Abs Immat Gran (auto) 0.02 Absolute Neuts (auto) 1.7 L Absolute Nucleated RBC 0.000 Nucleated RBC % (auto) 0.0 Anion Gap 12 Estim Creat Clear Calc 126.6 Estimated GFR > 60 Fasting Glucose 94 Calcium 8.8 Total Bilirubin 0.4 AST 253 H ALT 220 H Alkaline Phosphatase 91 Total Creatine Kinase 7572 H Total Protein 6.2 L Albumin 3.4 L Assessment and Plan (1) Rhabdomyolysis: Status: Acute Plan 42-year-old male with history of alcohol abuse, polysubstance abuse, PTSD, schizoaffective disorder, and hepatitis-C not currently on treatment admitted for acute rhabdomyolysis;' CK somewhat improved 1.Acute rhabdomyolysis -CPK trending downward. Creatinine remains stable -continue volume repletion with lactated Ringer's -follow the CPK, BMP... Hopeful DC in a.m. 2. Low back pain -plain films of lumbar spine negative -trial of Toradol 3.Alcohol use disorder -no evidence of acute withdrawal at this time, ethyl alcohol level undetectable -monitor on CIWA -addiction medicine consult appreciated 4.Hepatitis-C with significant transaminitis -will need outpatient follow-up with Gastroenterology -avoid hepatic toxins 5.Schizoaffective disorder/PTSD -continue home meds Lovenox Full code Patient requires ongoing hospitalization for IV volume repletion to treat rhabdomyolysis Time Spent With Patient Time: Total time managing care of this patient today ____ minutes. Quality Stroke Does the patient have a stroke diagnosis?: No VTE Prior VTE?: No VTE Risk Level:: Medical - moderate - high VTE Device Contraindication: Treatment Not Indicated VTE Drug Contraindication: N/A - Med Ordered
[2023-06-27 15:28] VITALS: BP 138/82; PULSE 58; RESP 18; TEMP 36.1
[2023-06-27 20:00] VITALS: BP 165/72; PULSE 56; RESP 18; TEMP 36.3; O2SAT 98
[2023-06-27] MEDS: Melatonin 3 MG TABLET 6 MG PO (22:23)
[2023-06-27] MEDS: Enoxaparin Sodium 40 MG/0.4 ML SYRINGE SUBCUT (22:24)
[2023-06-28] MEDS: oxyCODONE HCl Immed Release 5 MG TABLET 10 MG PO ×4 (00:07→14:30)
[2023-06-28 03:27] VITALS: BP 138/68; PULSE 57; RESP 16; TEMP 36.3; O2SAT 96
[2023-06-28 05:31] LABS: MANUAL DIFF FLAG NO
[2023-06-28 05:36] LABS: Basophils Percent Auto 0.6 % (0-2); Eosinophils Absolute Auto 0.3 X10*3/uL (0.0-0.4); Eosinophils Percent Auto 3.9 % (0-4); Hematocrit 37.7 % (42.0-52.0); Hemoglobin 13.2 g/dl (14.0-18.0); Imm Gran Abs Auto 0.03 X10*3/uL (0.00-0.03); Imm Gran Pct Auto 0.5 % (0.0-0.4); Lymphocytes Absolute Auto 2.5 X10*3/uL (1.2-4.9); Lymphocytes Percent Auto 39.9 % (20-40); Mean Corpuscular Hemoglobin 30.1 pg (27.0-33.0); Mean Corpuscular Volume 86.1 fL (80.0-98.0); Monocytes Absolute Auto 0.5 X10*3/uL (0.1-1.2); Monocytes Percent Auto 7.5 % (2-11); Neutrophils Percent Auto 47.6 % (45-73); Platelet Count 190 X10*3/uL (160-400); Red Blood Count 4.38 X10*6/uL (4.60-5.80); Red Cell Distribution Width 12.3 % (11.0-16.0); White Blood Count 6.4 X10*3/uL (4.8-10.8)
[2023-06-28 05:51] LABS: Alanine Aminotransferase 206 U/L (0-40); Albumin Level 3.6 g/dL (3.5-5.0); Alkaline Phosphatase 102 U/L (39-117); Anion Gap 14 (12-20); Aspartate Amino Transferase 177 U/L (5-37); Bilirubin Total 0.4 mg/dL (0.0-1.0); Blood Urea Nitrogen 13 mg/dL (9-16); Calcium 9.1 mg/dL (8.4-10.2); Carbon Dioxide 25 mmol/L (22-29); Chloride 103 mmol/L (96-108); Creatinine Clr Calc Pharmacy 117.5; Estimated Glomerular Filt Rate > 60; Glucose Fasting 114 mg/dL (60-99); Potassium 3.9 mmol/L (3.3-5.1); Sodium 138 mmol/L (135-145); Total Protein 6.8 g/dL (6.5-8.0)
[2023-06-28 07:28] VITALS: BP 154/81; PULSE 56; RESP 18; TEMP 36.3; O2SAT 95
[2023-06-28] MEDS: Nicotine 21 MG PATCH.TD24 TRANSDERMA (08:26)
[2023-06-28] MEDS: 0.9 % Sodium Chloride Flush 3 ML SYRINGE IVFLUSH (08:27)
--- NOTE | 2023-06-28 12:19 | P.DS_ITS ---
DS: Providers Provider Date of Service: 06/28/23 Date of admission: 06/25/23 21:04 Date of discharge: 06/28/23 Primary care physician: Unknown Physician Consults: 06/25/23 21:26 Addiction Medicine Routine Consulting Provider: Addiction Covering Reason for consultation: etoh, heroin, cocaine use- no MAT, wants detox DS: Diagnosis Discharge Diagnosis (1) Rhabdomyolysis: Status: Acute DS: Summary Hospital Course Hospital Course: 42-year-old male with history of alcohol abuse, polysubstance abuse, PTSD, schizoaffective disorder, and hepatitis-C not currently on treatment presented to the ED via [place] Narcan 8 mg prior to arrival. The patient reports that he uses inhaled heroin and cocaine and that he had been sober for about 1 year but relapsed recently. He is reporting low back pain and diffuse pain of the muscles of the extremities. He is unsure how long he was down for. He also reports daily alcohol use. States he drinks a 12 pack of beer and a pt of Angie on a daily basis, last drink was last night. On arrival, vital stable. There is a mild leukocytosis of 11.3. Renal function and electrolyte levels normal. AST 488, ALT 293, alkaline phosphatase 128. Total CK 19,091. Ethyl alcohol level undetectable. Urinalysis and urine tox screen pending. CT abdomen/pelvis negative for any acute intra-abdominal abnormality. Chest CT unremarkable. Head CT negative for any acute intracranial abnormality. Cervical spine CT negative for fracture, subluxation, or dislocation. Facial CT negative for any acute finding, though study is limited. In the ED, has received 2 L IV [facility] Admitted to general medical floor. Volume repleted with lactated Ringer's; CPKs trended downward and appropriate response. Complaint of low back pain; plain films of LS spine felt to demonstrate any acute bony issues. On the day of discharge his CKs are acceptable and he will be discharged home with a course of oral prednisone for musculoskeletal back pain. He can follow-up with his PCP as scheduled. He is strongly advised to avoid nasal street drugs Time Spent with Patient Time attestation: Total time managing care of this patient today ____ minutes. Discharge coordination time: Greater than 30 minutes Quality: Safe Use of Opioids Does Pt have an Active Cancer Diagnosis on the Problem List?: No Quality: Stroke Does the patient have a stroke diagnosis?: No Physical Exam Vital Signs: Vital Signs: Last Vital Signs Temp 97.3 F 06/28/23 07:28 Pulse 56 06/28/23 07:28 Resp 18 06/28/23 07:28 BP 154/81 H 06/28/23 07:28 Pulse Ox 95 06/28/23 07:28 O2 Del Method Room Air 06/28/23 07:28 BMI result Body Mass Index 29.0 Const: Other: Awake alert no acute distress Resp: Other: Clear to auscultation bilaterally no rales rhonchi or wheezes Cardio: Other: No S4; positive S1-S2; no S3 murmurs rubs or gallops GI: Other: Soft nontender nondistended normoactive bowel sounds Neuro: Other: Cranial nerves 2-12 grossly intact as tested. Motor is 5/5 all extremities. Sensations intact. Cognition appropriate Extrem: Other: No edema bilaterally DS: Data Data Completed and Pending Labs on day of discharge: Laboratory Results - last 24 hr 06/28/23 05:12 WBC 6.4 RBC 4.38 L Hgb 13.2 L Hct 37.7 L MCV 86.1 MCH 30.1 MCHC 35.0 RDW 12.3 Plt Count 190 D MPV 10.0 Immature Gran % (Auto) 0.5 H Neut % (Auto) 47.6 Lymph % (Auto) 39.9 [place] % (Auto) 7.5 Eos % (Auto) 3.9 Baso % (Auto) 0.6 Lymph # (Auto) 2.5 [place] # (Auto) 0.5 Eos # (Auto) 0.3 Baso # (Auto) 0.0 Abs Immat Gran (auto) 0.03 Absolute Neuts (auto) 3.0 Absolute Nucleated RBC 0.000 Nucleated RBC % (auto) 0.0 Sodium 138 Potassium 3.9 Chloride 103 Carbon Dioxide 25 Anion Gap 14 BUN 13 Creatinine 0.83 Estim Creat Clear Calc 117.5 Estimated GFR > 60 Fasting Glucose 114 H Calcium 9.1 Total Bilirubin 0.4 AST 177 H ALT 206 H Alkaline Phosphatase 102 Total Creatine Kinase 3751 H Total Protein 6.8 Albumin 3.6 Discharge Plan Discharge Anticipated Discharge Date/Time: 06/28/23 12:07 Patient Disposition: Home, Self-Care Discharge Diagnosis: Rhabdomyolysis Referrals: Physician,Unknown J [Primary Care Provider] - 1 Week Discharge Medications: New oxycodone 10 mg tablet 10 mg PO TID PRN (Reason: pain) Qty: 15 0RF Rx Instructions: Partial Fill upon patient request. prednisone 20 mg tablet See Rx Instructions .Route .COMPLEX Qty: 18 0RF Rx Instructions: 20 mg orally; 3 tabs daily for 3 days, 2 tabs daily for 3 days, 1 tab daily for 3 days Discharge Orders: Discharge Order (Routine); Ordered 06/28/23 Ordered By: Danilo Streeter Diet: Advance to usual diet Activity on Discharge: As tolerated Stand Alone Forms: Patient Portal Discharge page Care Plan Goals: Continue to drink plenty of fluids. Avoid all street drugs Health Concerns: Complete course of prednisone as ordered. Plan of Treatment: Oxycodone nsparingly for pain Assessment: See discharge summary
--- NOTE | 2023-06-28 12:38 | MHC.CM.PN ---
pt is dcd home no servies is needed
== END 2023-06-28 14:45 | disposition home or self-care (01) | DRG 812 ==
LOC: HO.ED 20:11 → HO.EDOVER 21:13 → HO.S3 06-26 07:42
PROVIDERS: Admitting Provider Student in an Organized Health Care Education/Training Program; Emergency Provider Emergency Medicine; Visit Provider Hospitalist
DX: T40.2X1A Poisoning by other opioids, accidental (unintentional), initial encounter (principal); M62.82 Rhabdomyolysis; F25.9 Schizoaffective disorder, unspecified; F43.10 Post-traumatic stress disorder, unspecified; M54.59 Other low back pain; F17.210 Nicotine dependence, cigarettes, uncomplicated; F10.10 Alcohol abuse, uncomplicated; F19.10 Other psychoactive substance abuse, uncomplicated; B19.20 Unspecified viral hepatitis C without hepatic coma; Z71.6 Tobacco abuse counseling
CPT/HCPCS: 36415; 70450; 70486; 71260; 72100; 72125; 74177; 80048; 80053; 80076; 80307; 81003; 82550; 83735; 85025; 93005; 99285; J1170; J1650; Q9967

== ENCOUNTER → 2023-06-25 21:04 | Outpatient (BNV) | payer OTHER, SELFPAY | PROVIDERS: Admitting Provider Student in an Organized Health Care Education/Training Program; Emergency Provider Emergency Medicine; Visit Provider Nurse Practitioner Psychiatric/Mental Health | DX: F11.90 Opioid use, unspecified, uncomplicated (principal) | CPT/HCPCS: 99231 ==

== ENCOUNTER → 2023-06-25 21:04 | Outpatient (BNV) | payer OTHER, SELFPAY | PROVIDERS: Admitting Provider Student in an Organized Health Care Education/Training Program; Emergency Provider Emergency Medicine; Visit Provider Physician Assistant | DX: M62.82 Rhabdomyolysis (principal) | CPT/HCPCS: 99223; 99233; 99239 ==

== ENCOUNTER 2023-06-29 20:17 | Emergency (ER) | payer OTHER, SELFPAY ==
[2023-06-29 20:24] VITALS: BP 150/80; PULSE 111; O2SAT 99; BMI 27.4
[2023-06-29 20:31] VITALS: BP 127/82; PULSE 90; RESP 18; TEMP 36.7; O2SAT 95
--- NOTE | 2023-06-29 20:39 | PC.NURSE ---
security to bedside for jacquard loom card changer; belongings secured in decon. vss. respirations even and unlabored. pt axox4 calm cooperative. Cuco CLAUDIO to bedside for primary eval. pt denies si/hi.
--- NOTE | 2023-06-29 20:44 | ED_ITS ---
HPI - General Adult General Chief complaint: Overdose Stated complaint: OD. 4mg narcan given Time Seen by Provider: 06/29/23 20:21 Source: patient, RN notes reviewed and old records reviewed Mode of arrival: EMS Limitations: no limitations History of Present Illness HPI narrative: 42-year-old male presents for evaluation after reported overdose. Patient was apparently found in a [employer] [place] unresponsive he responded to 4 mg of nasal Narcan. patient admits that he used 2 bags of heroin IV today he admits to an accidental overdose but was not trying to harm self he has no complaints or concerns at this time Related Data Previous Rx's Medication Instructions Recorded oxycodone 10 mg tablet 10 mg PO TID PRN pain #15 tabs 06/28/23 prednisone 20 mg tablet See Rx Instructions .Route 06/28/23 .COMPLEX #18 tabs Allergies Allergy/AdvReac Type Severity Reaction Status Date / Time haloperidol [From Haldol] AdvReac Unknown Verified 06/15/23 02:17 Review of Systems Constitutional: Constitutional: Denies chills, Denies fever(s) and Denies headache(s) ENT: Denies headache(s) Cardiovascular: Cardiovascular: Denies chest pain and Denies dyspnea Respiratory: Respiratory: Denies cough and Denies dyspnea Gastrointestinal: Gastrointestinal: Denies abdominal pain, Reports nausea and Denies vomiting Neurologic: Denies headache(s) [facility] Past Medical History Medical History Hepatitis C Alcohol use disorder Cocaine use disorder Opioid use disorder PTSD (post-traumatic stress disorder) Schizoaffective disorder, depressive type Substance abuse Anemia Social History Social History Household Members: None Housing: Other Housing Other:: skilled nursing Do you presently have visiting nurse or other home services: No Alcohol intake: current Alcohol intake frequency: a few times a week Alcohol type: beer Patient Tobacco Use Status: Tobacco use Unknown Tobacco use type: Cigarette Cigarette Packs Per Day: 1 Cigarettes Per Day: 20.0 Years Smoked: 4 Smoked in Last 30 Days: No e-Cigarette/Vaping Use: Currently Using Second Hand Smoke Exposure: No Use of substances other than those prescribed or required for medical reasons: Yes Substance Use Type: Heroin Advance Directives: No Advance Directives Information Provided: No service: No Sexual orientation: Straight/Heterosexual Physical Exam ED Vital Signs: Vital Signs - 24 hr 06/29/23 20:31 Temperature 98.1 F Pulse Rate 90 Respiratory Rate 18 Blood Pressure 127/82 Pulse Oximetry 95 Oxygen Delivery Method Room Air BMI result Body Mass Index 27.4 Const General: healthy appearing, comfortable, no acute distress, alert and awake Nutritional Appearance: well nourished Orientation/consciousness: patient oriented x3 HENMT Head: Yes normocephalic and Yes atraumatic Eyes Eyelids: Yes eyelids normal Conjunctivae: conjunctivae normal Sclerae: sclerae normal Corneas: corneas normal Pupils: Equal, round and reactive pupils present EOM: EOMs intact bilaterally Neck Neck: Yes full ROM Resp Effort & Inspection: normal respiratory effort, able to speak in complete sentences and not labored GI Inspection: No distended Palpation (GI): Soft to palpation, not firm, nontender, no guarding and not rigid Skin General skin exam: no rashes or lesions noted and elasticity normal Neuro General: patient oriented x3 Cranial nerves: Yes Equal, round and reactive pupils present and Yes Bilaterally intact EOM present Cognition (Neuro): normal cognition Extrem Other: Moving all extremities well without any obvious deformities Course Reevaluation(s) Reevaluation #1: patient remains awake, and oriented, he is stable for discharge at this time. Time: 22:02 Medical Decision Making Medical Decision Making MDM Narrative: 42-year-old male presents for evaluation of an accidental overdose. Patient denies any depression or suicidal ideation. He was not trying to harm himself in any way. He is currently awake, alert and oriented. Will observe the patient until he is safe for discharge. no signs of cellulitis or skin infections. No signs of trauma Differential Diagnosis Differential Diagnoses: The differential diagnosis associated with the presentation includes substance abuse Accidental overdose Opiate abuse overdose Discharge Plan Discharge Clinical Impression: Accidental drug overdose Patient Disposition: Home, Self-Care Instructions: Adult Overdose (ED) Prescriptions: No Action oxycodone 10 mg tablet 10 mg PO TID PRN (Reason: pain) Qty: 15 0RF Rx Instructions: Partial Fill upon patient request. prednisone 20 mg tablet See Rx Instructions .Route .COMPLEX Qty: 18 0RF Rx Instructions: 20 mg orally; 3 tabs daily for 3 days, 2 tabs daily for 3 days, 1 tab daily for 3 days
[2023-06-29] MEDS: Naloxone HCl Nasal TAKE HOME 4 MG SPRAY 8 MG NOSTRILALT (22:31)
--- NOTE | 2023-06-29 22:46 | PC.NURSE ---
pt states does not have means to get home; pharmacist in charge notified for lyft to home but she refused to book for pt. pt escorted to security to product picker belongings from [employer]; waiting in waiting room.
== END 2023-06-29 22:49 | disposition home or self-care (01) ==
PROVIDERS: Emergency Provider Emergency Medicine
DX: T40.1X1A Poisoning by heroin, accidental (unintentional), initial encounter (principal); R40.4 Transient alteration of awareness; Y92.511 Restaurant or cafe as the place of occurrence of the external cause; F19.10 Other psychoactive substance abuse, uncomplicated; F14.10 Cocaine abuse, uncomplicated; F17.210 Nicotine dependence, cigarettes, uncomplicated; B19.20 Unspecified viral hepatitis C without hepatic coma; F43.10 Post-traumatic stress disorder, unspecified
CPT/HCPCS: 99283; 99285

== ENCOUNTER 2023-07-17 14:59 | Emergency (ER) | payer OTHER, SELFPAY ==
--- NOTE | 2023-07-17 15:18 | ED_ITS ---
HPI - Overdose General Chief Complaint: Overdose Stated Complaint: OPIATE OD,NARCAN GIVEN W/GOOD RESULT,VOMITING Time Seen by Provider: 07/17/23 15:16 Source: EMS Mode of arrival: EMS History of Present Illness HPI Narrative: This is 43 years old patient presented to the emergency department after an overdose of opioids [place] was given Narcan,awake and alert now. C/o nausea requesting detox MD complaint: accidental overdose Onset (ago): hour(s) (1) Intent: other (accidental) Context: Accidental Overdose: wanted to get high Treatments Prior to Arrival: narcan Related Data Previous Rx's Medication Instructions Recorded oxycodone 10 mg tablet 10 mg PO TID PRN pain #15 tabs 06/28/23 prednisone 20 mg tablet See Rx Instructions .Route 06/28/23 .COMPLEX #18 tabs Allergies Allergy/AdvReac Type Severity Reaction Status Date / Time haloperidol [From Haldol] AdvReac Unknown Verified 06/15/23 02:17 Review of Systems Constitutional: Constitutional: Reports no additional constitutional complaints Cardiovascular: Cardiovascular: Reports no additional cardiovascular complaints Musculoskeletal: Musculoskeletal: Reports no additional musculoskeletal complaints PMFSH Past Medical History Medical History Hepatitis C Alcohol use disorder Cocaine use disorder Opioid use disorder PTSD (post-traumatic stress disorder) Schizoaffective disorder, depressive type Substance abuse Anemia Social History Social History Household Members: None Housing: Other Housing Other:: long term Do you presently have visiting nurse or other home services: No Alcohol intake: current Alcohol intake frequency: a few times a week Alcohol type: beer Patient Tobacco Use Status: Tobacco use Unknown Tobacco use type: Cigarette Cigarette Packs Per Day: 1 Cigarettes Per Day: 20.0 Years Smoked: 4 e-Cigarette/Vaping Use: Currently Using Second Hand Smoke Exposure: No Substance Use Type: Heroin Advance Directives: No Advance Directives Information Provided: No service: No Sexual orientation: Straight/Heterosexual Physical Exam Vital Signs: Vital Signs: Last Vital Signs Temp 98.4 F 07/17/23 15:19 Pulse 94 07/17/23 15:19 Resp 20 07/17/23 15:19 BP 153/96 H 07/17/23 15:19 Pulse Ox 95 07/17/23 15:19 O2 Del Method Room Air 07/17/23 15:19 BMI result Body Mass Index 32.3 Const: General: cooperative, well developed, alert and awake Nutritional Appearance: average body habitus Orientation/consciousness: oriented to person and patient oriented x3 HEENT: Head: Yes normal to inspection General nose exam: Normal external nose present Face and sinus: Yes normal facial exam Mouth: Normal oral and palatal mucosa present Throat: Yes posterior oropharynx normal Chest: Chest palpation & inspection: normal inspection of the chest Resp: Effort & Inspection: normal respiratory effort Cardio: Jugular venous distension: no JVD Rhythm: regular rhythm GI: Inspection: Yes normal to inspection Palpation (GI): Soft to palpation, not firm, nontender and no guarding Skin: General skin exam: no rashes or lesions noted, elasticity normal and turgor normal Rashes: no rashes Neuro: General: oriented to person and patient oriented x3 Cranial nerves: Yes CN's II-XII intact bilaterally Cognition (Neuro): normal cognition Course Reevaluation(s) Reevaluation #1: Signed out to Dr Alegre Time: 16:20 Medications Administered Discontinued Medications Generic Name Dose Route Start Last Admin Trade Name Freq PRN Reason Stop Dose Admin Ondansetron HCl 4 mg 07/17/23 15:17 07/17/23 15:41 Ondansetron Odt 4 Mg Tab.Rapdis TRANSLINGU 07/17/23 15:18 4 mg ONCE ONE Administration Medical Decision Making Medical Decision Making [facility] Narrative: Patient presents with overdose on Narcan he is awake and alert now will have care team/customer care team coach to see the pt Differential Diagnosis Differential Diagnoses: The differential diagnosis associated with the presentation includes Overdose of heroin/depression/anxiety Admission/Observation Consideration of admission/observation: Escalation of care including admission/observation considered Discharge Plan Discharge Clinical Impression: Drug overdose, Opioid overdose Patient Disposition: Still a Patient Prescriptions: No Action oxycodone 10 mg tablet 10 mg PO TID PRN (Reason: pain) Qty: 15 0RF Rx Instructions: Partial Fill upon patient request. prednisone 20 mg tablet See Rx Instructions .Route .COMPLEX Qty: 18 0RF Rx Instructions: 20 mg orally; 3 tabs daily for 3 days, 2 tabs daily for 3 days, 1 tab daily for 3 days
[2023-07-17 15:19] VITALS: BP 132/87; BP 153/96; PULSE 112; PULSE 94; RESP 20; TEMP 36.9; O2SAT 95; O2SAT 98; BMI 32.3
[2023-07-17] MEDS: Ondansetron ODT 4 MG TAB.RAPDIS TRANSLINGU (15:41)
--- NOTE | 2023-07-17 17:15 | HO.SUDE ---
Met with pt in [facility] who is here for OD to complete SUDE. Pt reports usually using about 1 bag of heroin daily but today used 2 bags intravenously. Pt has a history of 3 overdoses with most recent being earlier this year and was in ATS in [place] a few months ago. T/W reviewed harm reduction and overdose prevention with pt who verbalized understanding. Pt is currently interested in ATS at this time, however the bed search has been exhausted and there are no beds available. Pt to follow up from the community.
[2023-07-17 17:58] VITALS: BP 127/82; PULSE 93; RESP 16; O2SAT 96
[2023-07-17 19:09] VITALS: BP 148/88; PULSE 89; RESP 19; TEMP 36.7; O2SAT 97
[2023-07-17 19:40] VITALS: BP 111/67; PULSE 102; RESP 16; O2SAT 95
== END 2023-07-17 19:40 | disposition home or self-care (01) ==
PROVIDERS: Emergency Provider Emergency Medicine
DX: T40.1X1A Poisoning by heroin, accidental (unintentional), initial encounter (principal); Y92.9 Unspecified place or not applicable; F11.10 Opioid abuse, uncomplicated; F11.19 Opioid abuse with unspecified opioid-induced disorder; F17.200 Nicotine dependence, unspecified, uncomplicated; Z71.6 Tobacco abuse counseling; Z71.51 Drug abuse counseling and surveillance of drug abuser
CPT/HCPCS: 99283; 99284

== ENCOUNTER 2023-11-09 07:03 | Inpatient (IN) | payer OTHER, SELFPAY ==
[2023-11-09 07:09] VITALS: BP 148/93; PULSE 92; RESP 16; TEMP 36.6; O2SAT 97; BMI 29.4
--- NOTE | 2023-11-09 07:13 | ED.GENADULT ---
HPI - General Adult General Chief complaint: Psychiatric Symptoms Stated complaint: SI Time Seen by Provider: 11/09/23 07:13 Source: patient Mode of arrival: ambulatory Limitations: no limitations History of Present Illness HPI narrative: Patient is a 43 year old assigned male at with a history of hep C, alcohol use disorder, cocaine use disorder, and PTSD presenting to the emergency department today with suicidal ideation. Patient states that he is feeling more down and wants to kill himself. Patient denies any dizziness, lightheadedness, abdominal pain, nausea, vomiting, fever, chills, blurry vision, double vision, loss of vision, chest pain, difficulty breathing, shortness of breath, back pain, night sweats, pain with urination, increased urinary frequency, increased urinary urgency, blood in his urine or stool, syncope or a near syncopal episode, recent trauma or falls, bowel incontinence, bladder incontinence, bowel retention, bladder retention, or any other complaints at this time. Onset (ago): day(s) Relieving factors: none Exacerbating factors: none Associated symptoms: denies other symptoms Treatments prior to arrival: none Related Data Previous Rx's Medication Instructions Recorded oxycodone 10 mg tablet 10 mg PO TID PRN pain #15 tabs 06/28/23 prednisone 20 mg tablet See Rx Instructions .Route 06/28/23 .COMPLEX #18 tabs Allergies Allergy/AdvReac Type Severity Reaction Status Date / Time haloperidol [From Haldol] AdvReac Unknown Verified 11/09/23 07:08 Review of Systems Constitutional: Constitutional: Reports no additional constitutional complaints, Denies chills, Denies fever(s) and Denies night sweats Eyes: Eyes: Reports no additional eye complaints, Denies blurry vision, Denies change in vision, Denies diplopia, Denies eye discharge, Denies loss of vision and Denies eye pain ENT: Denies dizziness Cardiovascular: Cardiovascular: Reports no additional cardiovascular complaints, Denies chest pain, Denies lightheadedness, Denies Loss of Consciousness and Denies dyspnea Respiratory: Respiratory: Reports no additional respiratory complaints and Denies dyspnea Gastrointestinal: Gastrointestinal: Reports no additional gastrointestinal complaints, Denies abdominal pain, Denies melena, Denies hematochezia, Denies change in bowel habits and Denies change in stool character Genitourinary: Genitourinary: Reports no additional male genitourinary complaints, Denies hematuria, Denies oliguria, Denies difficulty urinating, Denies dysuria, Denies urinary frequency, Denies urinary hesitancy, Denies urinary incontinence and Denies urinary urgency Musculoskeletal: Musculoskeletal: Reports no additional musculoskeletal complaints, Denies numbness and Denies tingling Neurologic: Denies dizziness, Denies loss of vision, Denies numbness and Denies tingling Psychiatric: Psychiatric: Denies homicidal ideation and Reports suicidal ideation Endocrine: Endocrine: Reports no additional endocrine complaints Hematologic/Lymphatic: Hematologic/Lymphatic: Reports no additional hematologic/lymphatic complaints Allergic/Immunologic: Allergic/Immunologic: Reports no additional allergic/immunologic complaints PMFSH Past Medical History Attestation statement: The following information was validated with the patient. Source: old records reviewed and nursing notes reviewed Medical History Hepatitis C Alcohol use disorder Cocaine use disorder Opioid use disorder PTSD (post-traumatic stress disorder) Schizoaffective disorder, depressive type Substance abuse Anemia Social History Social History Household Members: None Housing: Other Housing Other:: [facility] Do you presently have visiting nurse or other home services: No Alcohol intake: current Alcohol intake frequency: 3 or more drinks per day Alcohol type: beer and hard liquor Patient Tobacco Use Status: Tobacco use Unknown Tobacco use type: Cigarette Cigarette Packs Per Day: 1 Cigarettes Per Day: 20.0 Years Smoked: 4 e-Cigarette/Vaping Use: Currently Using Second Hand Smoke Exposure: No Substance Use Type: Crack/Cocaine and Heroin Advance Directives: Yes Advance Directives on File: Yes Advance Directives Date on File: 06/29/23 service: No Sexual orientation: Straight/Heterosexual Physical Exam ED Vital Signs: Vital Signs - 24 hr 11/09/23 07:09 Temperature 98 F Pulse Rate 92 Respiratory Rate 16 Blood Pressure 148/93 H Pulse Oximetry 97 Oxygen Delivery Method Room Air BMI result Body Mass Index 29.4 Const General: cooperative, no acute distress, alert and awake Nutritional Appearance: well nourished Orientation/consciousness: patient oriented x3 Limitations: no limitations HENMT Head: Yes normal to inspection and Yes atraumatic Ears: hearing grossly normal bilaterally and external ears normal General nose exam: Normal external nose present, no nasal discharge noted and no epistaxis Face and sinus: Yes normal facial exam, No abrasion and No laceration Mouth: Normal oral and palatal mucosa present, no drooling and no muffled voice Eyes General: appearance normal, both eyes and all related structures Periorbital: periorbital findings normal Eyelids: Yes eyelids normal Conjunctivae: conjunctivae normal Pupils: Equal, round and reactive pupils present EOM: EOMs intact bilaterally Neck Neck: Yes normal visual inspection, Yes full ROM and Yes no lymphadenopathy Chest Chest palpation & inspection: normal inspection of the chest Resp Effort & Inspection: normal respiratory effort and able to speak in complete sentences GI Inspection: Yes normal to inspection Neuro General: patient oriented x3 and moves all extremities Cranial nerves: Yes Equal, round and reactive pupils present Cognition (Neuro): normal cognition Motor exam (neuro): 5/5 motor strength present throughout Sensory Exam: Normal double simultaneous stimulation for sensation Coordination: [id number] test normal Extrem General: Yes normal to inspection, Yes full ROM and Yes capillary refill normal Psych Appearance: grossly normal Mental Status: mental status grossly normal Affect: normal affect Attitude: cooperative Thought process: Normal thought process present Thought content: Suicidality present Medical Decision Making Medical Decision Making MDM Narrative: Patient is a 43 year old assigned male at with a history of hep C, alcohol use disorder, cocaine use disorder, and PTSD presenting to the emergency department today with suicidal ideation. Patient's physical exam was unremarkable. Patient's blood work was unremarkable. I explained my physical exam findings as well as all test results to the patient. I answered all questions asked by the patient. Patient is awaiting CARE team evaluation. Patient is cleared medically. Patient's disposition will be determined after CARE evaluation. Differential Diagnosis Differential Diagnoses: The differential diagnosis associated with the presentation includes Suicidal ideation Depression Admission/Observation Consideration of admission/observation: Escalation of care including admission/observation considered Disposition will be determined after CARE team evaluation. Lab Data [facility] Lab Attestation statement: I reviewed the patient's lab results. My interpretation of these studies and their corresponding values is that they are grossly normal. 11/09/23 08:00 11/09/23 08:00 Labs: Lab Results 11/09/23 11/09/23 Range/Units 08:00 09:19 WBC 6.2 (4.8-10.8) X10*3/uL RBC 4.90 (4.60-5.80) X10*6/uL Hgb 14.0 (14.0-18.0) g/dl Hct 39.6 L (42.0-52.0) % MCV 80.8 (80.0-98.0) fL MCH 28.6 (27.0-33.0) pg MCHC 35.4 (31.0-36.0) g/dl RDW 12.8 (11.0-16.0) % Plt Count 155 L (160-400) X10*3/uL MPV 8.8 L (9.4-12.4) fL Immature Gran % (Auto) 0.3 (0.0-0.4) % Neut % (Auto) 79.3 H (45-73) % Lymph % (Auto) 11.0 L (20-40) % [place] % (Auto) 8.5 (2-11) % Eos % (Auto) 0.6 (0-4) % Baso % (Auto) 0.3 (0-2) % Lymph # (Auto) 0.7 L (1.2-4.9) X10*3/uL [place] # (Auto) 0.5 (0.1-1.2) X10*3/uL Eos # (Auto) 0.0 (0.0-0.4) X10*3/uL Baso # (Auto) 0.0 (0.0-0.2) X10*3/uL Abs Immat Gran (auto) 0.02 (0.00-0.03) X10*3/uL Absolute Neuts (auto) 4.9 (2.0-8.3) x10*3/uL Absolute Nucleated RBC 0.000 (0.0-0.012) X10*3/uL Nucleated RBC % (auto) 0.0 (0.0-0.2) /100WBC Sodium 136 (135-145) mmol/L Potassium 3.6 (3.3-5.1) mmol/L Chloride 100 (96-108) mmol/L Carbon Dioxide 25 (22-29) mmol/L Anion Gap 15 (12-20) BUN 10 (9-16) mg/dL Creatinine 0.82 (0.5-1.4) mg/dL Estim Creat Clear Calc 118.4 Estimated GFR > 60 Random Glucose 164 H (60-115) mg/dL Calcium 9.5 (8.4-10.2) mg/dL Total Bilirubin 1.2 H (0.0-1.0) mg/dL AST 43 H (5-37) U/L ALT 59 H (0-40) U/L Alkaline Phosphatase 112 (39-117) U/L Total Protein 8.0 (6.5-8.0) g/dL Albumin 4.3 (3.5-5.0) g/dL Urine Color Dark Yellow Urine Appearance Clear Urine pH 5.5 (5.0-9.0) Ur Specific [place] 1.025 (1.005-1.025) Urine Protein Negative (Neg-Trace) mg/dL Urine Glucose (UA) Negative (Negative) mg/dL Urine Ketones 40 (Negative) mg/dL Urine Blood Negative (Negative) Urine Nitrite Negative (Negative) Ur Leukocyte Esterase Negative (Negative) Salicylates < 5.0 L (15-30) mg/dL Urine Opiates Screen POSITIVE H (Not Detect) Urine Fentanyl Screen POSITIVE H (Not Detect) Acetaminophen < 3 (<30) mcg/mL Ur Barbiturates Screen Not Detected (Not Detect) Ur Phencyclidine Scrn POSITIVE H (Not Detect) Ur Amphetamines Screen Not Detected (Not Detect) U Benzodiazepines Scrn Not Detected (Not Detect) Urine Cocaine Screen POSITIVE H (Not Detect) U Marijuana (THC) Screen POSITIVE H (Not Detect) Ethyl Alcohol < 10 mg/dL COVID-19 (TRUNG) Negative (Negative) COVID-19 Clin Com See Note Critical Care Time Critical Care Time Critical Care Time: Yes Total Critical Care Time: 35 Attestation: I spent 35 minutes of Critical Care Time with this patient. This does not include time spent on separately reported billable procedures. Discharge Plan Discharge Clinical Impression: Suicidal ideation Patient Disposition: Still a Patient Prescriptions: No Action oxycodone 10 mg tablet 10 mg PO TID PRN (Reason: pain) Qty: 15 0RF Rx Instructions: Partial Fill upon patient request. prednisone 20 mg tablet See Rx Instructions .Route .COMPLEX Qty: 18 0RF Rx Instructions: 20 mg orally; 3 tabs daily for 3 days, 2 tabs daily for 3 days, 1 tab daily for 3 days
--- NOTE | 2023-11-09 07:14 | ECG_ITS ---
Test Reason : HX OF COCAINE USE MED CLEARANCE Blood Pressure : / mmHG Vent. Rate : 089 BPM Atrial Rate : 089 BPM P-R Int : 136 ms QRS Dur : 100 ms QT Int : 390 ms P-R-T Axes : 060 078 076 degrees QTc Int : 474 ms Normal sinus rhythm Minimal voltage criteria for LVH, may be normal variant ( Sokolow-Osullivan ) Borderline ECG When compared with ECG of 25-JUN-2023 18:34, No significant change was found Referred By: Danuta Javed Electronically Signed By:LALO CRAMER
[2023-11-09 08:04] LABS: MANUAL DIFF FLAG NO
--- NOTE | 2023-11-09 08:05 | PC.NURSE ---
a&ox4. vss and up to date. pt presents to the ED w/ SI and increased depression. pt denies HI. does not have a specific plan in regards to SI. pt states, I don't have a specific way to kill myself, if the opportunity arose, I would just do it. labs/urine obtained/sent to lab. pt waiting to be medically cleared prior to being transported to the pod. no sob/wob noted. pt resting comfortably in no apparent distress/sitting in the stretcher at this time. 1:1 sitter present.
[2023-11-09 08:10] LABS: Basophils Percent Auto 0.3 % (0-2); Eosinophils Percent Auto 0.6 % (0-4); Hematocrit 39.6 % (42.0-52.0); Imm Gran Abs Auto 0.02 X10*3/uL (0.00-0.03); Imm Gran Pct Auto 0.3 % (0.0-0.4); Lymphocytes Absolute Auto 0.7 X10*3/uL (1.2-4.9); Mean Corpuscular HGB Conc 35.4 g/dl (31.0-36.0); Mean Corpuscular Hemoglobin 28.6 pg (27.0-33.0); Mean Corpuscular Volume 80.8 fL (80.0-98.0); Mean Platelet Volume 8.8 fL (9.4-12.4); Monocytes Absolute Auto 0.5 X10*3/uL (0.1-1.2); Monocytes Percent Auto 8.5 % (2-11); Neutrophils Absolute Auto 4.9 x10*3/uL (2.0-8.3); Neutrophils Percent Auto 79.3 % (45-73); Platelet Count 155 X10*3/uL (160-400); Red Cell Distribution Width 12.8 % (11.0-16.0); White Blood Count 6.2 X10*3/uL (4.8-10.8)
[2023-11-09 08:20] LABS: Acetaminophen LAB < 3 mcg/mL (<30); Alanine Aminotransferase 59 U/L (0-40); Albumin Level 4.3 g/dL (3.5-5.0); Alkaline Phosphatase 112 U/L (39-117); Anion Gap 15 (12-20); Aspartate Amino Transferase 43 U/L (5-37); Bilirubin Total 1.2 mg/dL (0.0-1.0); Blood Urea Nitrogen 10 mg/dL (9-16); Calcium 9.5 mg/dL (8.4-10.2); Carbon Dioxide 25 mmol/L (22-29); Chloride 100 mmol/L (96-108); Creatinine Clr Calc Pharmacy 118.4; Estimated Glomerular Filt Rate > 60; Ethanol < 10 mg/dL; Glucose Random 164 mg/dL (60-115); Potassium 3.6 mmol/L (3.3-5.1); Salicylate < 5.0 mg/dL (15-30); Sodium 136 mmol/L (135-145)
[2023-11-09 08:34] LABS: COVID-19 Test Negative (Negative); IDNOW Serial# 6674DD1D
--- NOTE | 2023-11-09 09:03 | PC.NURSE ---
methadone dose verified/sent to pharmacy at this time.
[2023-11-09 09:33] LABS: Appearance Urine Clear; Color Urine Dark Yellow; Glucose Urine UA Negative (Negative); Leukocyte Esterase Urine Negative (Negative); Nitrite Urine Negative (Negative); PH 5.5 (5.0-9.0); Specific Gravity - Urine 1.025 (1.005-1.025); Urine Blood Negative (Negative); Urine Ketones 40 mg/dL (Negative); Urine Protein Negative (Neg-Trace)
[2023-11-09 09:42] LABS: Amphetamine Screen Urine Not Detected (Not Detect); Barbiturates, Urine Not Detected (Not Detect); Benzodiazepines Screen Urine Not Detected (Not Detect); Cannabinoid Screen Urine POSITIVE (Not Detect); Cocaine Screen Urine POSITIVE (Not Detect); Fentanyl, urine POSITIVE (Not Detect); Opiate Screen Urine POSITIVE (Not Detect); Phencyclidine Screen Urine POSITIVE (Not Detect)
--- NOTE | 2023-11-09 10:20 | HE.PHANOTE ---
Methadone Verification Last dose of 60mg on 11/07/23 at 11:30am from [facility] ([phone]) per BRUNO Conteh at [facility].
[2023-11-09] MEDS: Ibuprofen 600 MG TABLET PO (10:51)
--- NOTE | 2023-11-09 10:55 | PC.NURSE ---
pt c/o 06/20 headache. pt medicated per provider order. effectiveness pending. report given to BRUNO lundberg in the pod at this time.
--- NOTE | 2023-11-09 11:19 | MHC.CARE ---
CARE team called [facility] requesting a good standing letter for his methadone to be faxed. [phone]
[2023-11-09 12:06] VITALS: RESP 14
--- NOTE | 2023-11-09 12:08 | PC.NURSE ---
Pt brought over from main ER, patient appears to be in no apparent distress, respirations even and unlabored. Pt verbalizes SI thoughts without specific plan at this time. Continue plan of care for dual diagnosis bedsearch
[2023-11-09] MEDS: methADONE HCl 20 MG/2 ML ORAL.CONC 60 MG PO (12:26)
[2023-11-09] MEDS: LORazepam 1 MG TABLET 2 MG PO (17:22)
--- NOTE | 2023-11-09 18:39 | PC.NURSE ---
Pt has been calm and cooperative all day in no apparent distress. Aware of plan of care for dual dx bedsearch
--- NOTE | 2023-11-09 19:11 | PC.NURSE ---
patient appears to remain at rest at present respirations are even and unlabored patient appears in no distress.
[2023-11-09] MEDS: Throat Lozenge, Medicated LOZENGE 1 LOZENGE MUCOUS MEM (21:10)
[2023-11-09 21:17] VITALS: BP 142/100; PULSE 96; RESP 16; TEMP 37.3; O2SAT 97
[2023-11-09] MEDS: cloNIDine HCL 0.1 MG TABLET PO (21:58)
[2023-11-09] MEDS: hydrOXYzine HCL 50 MG TABLET PO (21:59)
--- NOTE | 2023-11-10 03:04 | PC.NURSE ---
patient suddenly had a few episodes of vomiting, requested order for zofran SL
--- NOTE | 2023-11-10 03:40 | PC.NURSE ---
patient laid down slept then with no vomiting patient came and requested ibuprofen, laid back down
[2023-11-10] MEDS: Ibuprofen 400 MG TABLET PO (03:42)
[2023-11-10 06:00] VITALS: BP 113/73; PULSE 74; RESP 16; TEMP 36.7; O2SAT 95
--- NOTE | 2023-11-10 08:00 | PC.NURSE ---
assumed care of patient at 0700, patient appears to be resting on bed with eyes closed, no apparent distress at this time. Continue plan of care for dual diagnosis bedsearch
[2023-11-10] MEDS: methADONE HCl 20 MG/2 ML ORAL.CONC 60 MG PO (08:09)
[2023-11-10 12:40] VITALS: BMI 28.9
--- NOTE | 2023-11-10 13:53 | PC.ADMIT ---
Addendum entered and electronically signed by Evette David RN 11/10/23 18:20: Positive for Influenza A, room changed to anteroom and placed on 5 min safety checks. CIWA 4 at 1646, reported positive symptoms at 1729. Reassessed, CIWA 15, Dr Mar notified. Ativan 2mg po given at 1744. Pt requested Clonidine to be ordered prn due to Fentanyl usage prior to admission. Prn Clonidine order obtained for symptoms of opiate withdrawal. Original Note: This is the 1st admission for this 43 y.o. male to [facility] at [facility]. Referred by [facility] Care Team with Dx: Unspecified Mood D/o, Unspecified Opioid D/o, Cocaine Abuse, Uncomplicated. Arrived on unit at 1223 and placed on 15 min safety checks. Self presented to [facility] ED reporting SI with a plan to overdose. Stated krystin prior to ED visit he overdosed with intent to end his life, requiring 4 narcan by a bystander. Reports prior overdose a few months ago. Tox screen positive for opiates, fentanyl, pcp, cocaine and thc; pt acknowledges all. States opiates are heroin, thc-marijuana. Prior admission to M5 unit 10/05/22 for SI/HI, AH/VH, substance use. Pt reports etoh use at 3-4 drinks 1-3x week. Reports last use of etoh as a pint of rum and 2 beers on 11/08/23. Reports hx etoh related seizures, last seizure about a week ago. VS 100.6-91-16 135/97 O2 sat 99% rm air. Infrequent, unproductive cough noted, pt reports started 2 days ago. Pt reports vomiting 4x in ED, last episode last night. Rates depression and anxiety #10 on scale 1-10(10 worse). Denies SI/HI. Reports AH telling him to harm himself and VH of shadows. Pt is on Methadone maintenance at [facility] and received Methadone in ED this am. Sedation noted during admission process, frequently falling asleep during admission process. Reports recent 21 pound wt loss. Respiratory panel, CIWA ordered. Currently homeless, and reports financial insecurities.
--- NOTE | 2023-11-10 14:02 | MHC.CLN ---
NUTRITION CONSULT FOR PATIENT REPORTS LOSS OF 21# RECENTLY. REVIEW OF WEIGHT HX X ONE YEAR SHOWS VARIABLE WEIGHTS AND SUSPECT SOME WEIGHTS NOT ACTUAL FOR THAT DATE. COMPARING WEIGHT ON THIS ADMISSION TO HOSPITAL ADMISSION 06/25/23: 11/10/23=81.25 KG; 06/25/23=81.647 KG. SHOWS WEIGHT ESSENTIALLY STABLE X 5 MONTHS. NO ADDITIONAL NUTRITION INTERVENTIONS AT THIS TIME.
[2023-11-10 15:44] LABS: Influenza A PCR POSITIVE (Negative); Influenza B PCR NEGATIVE (Negative); Resp Syncy Virus RNA Qual PCR NEGATIVE (Negative); SARS COV2 PCR INHOUSE NEGATIVE (Negative)
[2023-11-10] MEDS: Acetaminophen 325 MG TABLET 650 MG PO (17:22)
[2023-11-10] MEDS: LORazepam 1 MG TABLET 2 MG PO (17:44)
[2023-11-10 20:20] VITALS: BP 120/77; PULSE 83; RESP 18; TEMP 37.2; O2SAT 98
[2023-11-10] MEDS: cloNIDine HCL 0.1 MG TABLET PO (20:27)
[2023-11-10] MEDS: LORazepam 1 MG TABLET PO (20:27)
[2023-11-11 07:56] LABS: Alanine Aminotransferase 54 U/L (0-40); Albumin Level 4.2 g/dL (3.5-5.0); Alkaline Phosphatase 99 U/L (39-117); Anion Gap 15 (12-20); Aspartate Amino Transferase 42 U/L (5-37); Bilirubin Total 0.5 mg/dL (0.0-1.0); Blood Urea Nitrogen 10 mg/dL (9-16); Calcium 9.1 mg/dL (8.4-10.2); Carbon Dioxide 25 mmol/L (22-29); Chloride 101 mmol/L (96-108); Cholesterol 156 mg/dL (<200); Creatinine Clr Calc Pharmacy 123.5; Estimated Average Glucose 108 mg/dL; Estimated Glomerular Filt Rate > 60; Glucose Fasting 103 mg/dL (60-99); HDL Cholesterol 52 mg/dL (>40); Hemoglobin A1c % 5.4 % (<6.0); LDL Cholesterol Calculated 90 mg/dL (<100); Potassium 3.9 mmol/L (3.3-5.1); Sodium 137 mmol/L (135-145); Triglycerides 70 mg/dL (<150)
[2023-11-11 08:04] VITALS: BP 116/67; PULSE 93; RESP 14; TEMP 38.7; O2SAT 96
[2023-11-11 08:11] LABS: Free T4 (Free Thyroxine) 0.93 ng/dL (0.71-1.85); Thyroid Stimulating Hormone 0.16 uIU/mL (0.32-4.0)
[2023-11-11 08:27] LABS: Folate 12.2 ng/mL (> or = 4.0); Vitamin B12 437 pg/mL (200-900)
[2023-11-11] MEDS: methADONE HCl 20 MG/2 ML ORAL.CONC 60 MG PO (08:56)
[2023-11-11] MEDS: LORazepam 1 MG TABLET PO (09:25)
[2023-11-11] MEDS: Ibuprofen 800 MG TABLET PO ×2 (09:25→21:14)
[2023-11-11 10:30] VITALS: BP 118/90; PULSE 80; RESP 20; TEMP 36.6; O2SAT 95
[2023-11-11] MEDS: cloNIDine HCL 0.1 MG TABLET PO ×3 (10:30→21:10)
--- NOTE | 2023-11-11 11:26 | MHC.RECOVRN ---
AUDIT-C Brief Intervention Pt had positive screen for unhealthy alcohol use on admission. Pt declined to meet with Addiction and Recovery Team.
[2023-11-11 13:30] VITALS: BP 94/54; PULSE 61; RESP 16; TEMP 35.6; O2SAT 95
[2023-11-11] MEDS: LORazepam 1 MG TABLET 2 MG PO ×2 (13:44→21:13)
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
[2023-11-11 18:32] VITALS: TEMP 36.3
[2023-11-11 20:29] VITALS: BP 117/65; PULSE 74; RESP 16; TEMP 36.9; O2SAT 97
[2023-11-11] MEDS: hydrOXYzine HCL 50 MG TABLET PO (21:14)
[2023-11-11] MEDS: Throat Lozenge, Medicated LOZENGE 1 LOZENGE MUCOUS MEM (21:14)
[2023-11-11] MEDS: Mirtazapine 15 MG TABLET PO (21:14)
[2023-11-11] MEDS: guaiFENesin 100 MG/5 ML LIQUID PO (21:14)
[2023-11-12] MEDS: cloNIDine HCL 0.1 MG TABLET PO ×2 (00:35→09:21)
[2023-11-12] MEDS: QUEtiapine Fumarate 25 MG TABLET PO (00:36)
[2023-11-12] MEDS: LORazepam 1 MG TABLET PO (00:36)
[2023-11-12 09:00] VITALS: BP 117/72; PULSE 69; RESP 16; TEMP 36.6; O2SAT 96
[2023-11-12] MEDS: methADONE HCl 20 MG/2 ML ORAL.CONC 60 MG PO (09:10)
[2023-11-12] MEDS: Sertraline HCL 50 MG TABLET PO (09:10)
[2023-11-12] MEDS: LORazepam 1 MG TABLET 2 MG PO (09:11)
[2023-11-12] MEDS: Ibuprofen 800 MG TABLET PO (09:20)
[2023-11-12] MEDS: guaiFENesin 100 MG/5 ML LIQUID PO (09:20)
[2023-11-12] MEDS: diazePAM 5 MG TABLET PO (13:05)
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
== END 2023-11-12 13:25 | disposition home or self-care (01) | DRG 755 ==
LOC: HO.ED 11:01 → HO.PADLT16 11-10 11:28
PROVIDERS: Physician Assistant Medical; Admitting Provider Psychiatry & Neurology Psychiatry; Emergency Provider Emergency Medicine; PCP Psychiatry & Neurology Psychiatry; Visit Provider Psychiatry & Neurology Psychiatry
DX: F43.10 Post-traumatic stress disorder, unspecified (principal); R45.851 Suicidal ideations; Z91.148 Patient's other noncompliance with medication regimen for other reason; F14.10 Cocaine abuse, uncomplicated; F11.20 Opioid dependence, uncomplicated; F16.10 Hallucinogen abuse, uncomplicated; F17.210 Nicotine dependence, cigarettes, uncomplicated; Z71.6 Tobacco abuse counseling; Z62.810 Personal history of physical and sexual abuse in childhood; Z20.822 Contact with and (suspected) exposure to COVID-19; Z59.01 Sheltered homelessness; Z79.899 Other long term (current) drug therapy
CPT/HCPCS: 0241U; 36415; 80053; 80061; 80143; 80179; 80307; 81003; 82607; 82746; 83036; 84439; 84443; 85025; 87635; 93005; 99285; S9485

== ENCOUNTER → 2023-11-09 07:14 | Outpatient (BNV) | payer OTHER, SELFPAY | PROVIDERS: Emergency Provider Emergency Medicine; PCP Psychiatry & Neurology Psychiatry; Visit Provider Internal Medicine | DX: F14.90 Cocaine use, unspecified, uncomplicated (principal) | CPT/HCPCS: 93010 ==

== ENCOUNTER → 2023-11-10 11:21 | Outpatient (BNV) | payer OTHER, SELFPAY | PROVIDERS: Admitting Provider Psychiatry & Neurology Psychiatry; Emergency Provider Emergency Medicine; PCP Psychiatry & Neurology Psychiatry; Visit Provider Psychiatry & Neurology Psychiatry | DX: F16.10 Hallucinogen abuse, uncomplicated (principal); F11.90 Opioid use, unspecified, uncomplicated; R45.851 Suicidal ideations; F19.90 Other psychoactive substance use, unspecified, uncomplicated; F14.10 Cocaine abuse, uncomplicated | CPT/HCPCS: 99232; 99233 ==